=== PATIENT | female | born 1930 | race Caucasian/White ===

== ENCOUNTER 2016-06-23 19:42 | Inpatient (IN) | payer OTHER, MEDICARE ==
[~2016-06-23] VITALS: Ht 165.1 cm; Wt 82.0 kg
[~2016-06-23 19:42] MED LIST: ASCO100061 PO; CALC200T PO; CHOL100010 PO; CLC100 PO; CYAN100020 PO; DLCS PR; FLUO40CA8 PO; GLUCTAB7 PO; LTRCR45 EXT; MELO15TA4 PO; MRLP17X PO; MULTTAB58 PO; NRN100 PO; OXGN; RXC5 PO; TRAZ50TA35 PO
[2016-06-23] MEDS ORDERED: SODIUM CHLORIDE 0.9% 1000ML 1,000 ML IV ONE (19:49)
--- NOTE | 2016-06-23 20:20 | DIAGNOSTIC IMAGING REPORT ---
CHEST ONE VIEW PORTABLE CLINICAL HISTORY: Cellulitis. Fever. Sepsis. COMPARISON STUDY: Chest radiograph May 14, 2016. FINDINGS: Elevation of the right hemidiaphragm is unchanged. Left lung interstitial thickening is unchanged. No consolidation is identified. There is no evidence of pulmonary edema. There are left axillar surgical clips. Cardiomediastinal silhouette is stable. The appearance of the chest is unchanged. IMPRESSION: No acute cardiopulmonary findings. No change in appearance of the chest. Electronically signed by: Harley Lockhart M.D. 06/23/2016 8:19 PM
[2016-06-23] MEDS ORDERED: PIPERACILLIN/TAZOBACTAM 4.5 GM/100ML D5W IV STA (20:21)
[2016-06-23] MEDS ORDERED: VANCOMYCIN IV STA (20:21)
[2016-06-23] MEDS ORDERED: SODIUM CHLORIDE 0.9% IV STA (20:21)
[2016-06-23] MEDS ORDERED: ASCO500T16 PO ×2 (20:33)
[2016-06-23] MEDS ORDERED: NF656 TOP (20:33)
[2016-06-23] MEDS ORDERED: CHOL1000 PO ×2 (20:35)
[2016-06-23] MEDS ORDERED: DOCU-94 PO ×2 (20:36)
[2016-06-23] MEDS ORDERED: [UNRECOGNIZED DRUG - OTHER] PO (20:38)
[2016-06-23] MEDS ORDERED: TRAM-10 PO (20:42)
[2016-06-23] MEDS ORDERED: VANCOMYCIN INJ 2,150 MG in SODIUM CHLORIDE 0.9% 500ML 500 ML IV SCH (20:45)
[2016-06-23] MEDS ORDERED: OXYC-57 PO (20:46)
[2016-06-23] MEDS ORDERED: MOML PO ×2 (20:48)
[2016-06-23] MEDS ORDERED: POLY335019 PO ×2 (20:49)
--- NOTE | 2016-06-23 20:50 | EMERGENCY ROOM VISIT NOTE ---
History Report prepared by Daniele: Dania Reyes Under the Supervision of: Dr. Tyler Harry D.O. First contact with patient: 19:47 Chief Complaint: INFECTION Stated Complaint: CELLULITIS, LOW GRADE FEVER History of Present Illness The patient is a 85 year old female who presents to the Emergency Room via EMS from [facility] with complaints of worsening left hip pain, swelling, and erythema occurring today. She also reports a fever but is unsure of how high the temperature was. The patient was evaluated in the Emergency Room for a left hip fracture on May 14. She had left hip surgery by Dr. Sherwood on May 15. She was sent to rehab on May 17. The patient denies chest pain, shortness of breath, urinary symptoms, or any other complaints. Source of History: patient Onset: today Position: other (left hip) Quality: other (swelling and erythema) Timing: worsening Associated Symptoms: + fevers, No SOB, No chest pain, No urinary symptoms Review of Systems See HPI for pertinent positives & negatives. A total of 10 systems reviewed and were otherwise negative. Past Medical & Surgical Medical Problems: (1) Anxiety (2) Carcinoma of breast (3) Carcinoma of colon (4) Chest pain (5) Depression (6) History of chronic diarrhea (7) Lumbar spinal stenosis (8) Lymphedema (9) Neuropathy (10) Osteoporosis (11) Pernicious anemia (12) Sleep apnea Surgical Problems: (1) H/O partial mastectomy (2) History of appendectomy (3) History of cholecystectomy (4) History of partial colectomy Family History Cancer Diabetes mellitus Social History Smoking Status: Never Smoker Drug Use: none Marital Status: Housing Status: lives alone Occupation Status: retired Current/Historical Medications Scheduled Ascorbic Acid (Ascorbic Acid), 1,000 MG PO BID Calcium Carbonate-Vitamin D (Oscal 500/200 D-3), 1 TAB PO DAILY Cholecalciferol (Vitamin D3), 1,000 INTER.UNIT PO DAILY Clotrimazole (Topical) (Clotrimazole Anti-Fungal), 1 APPLN TOP BID Cyanocobalamin (Vitamin B12), 1,000 MCG PO DAILY Docusate Sodium (Colace), 200 MG PO BID Fluoxetine (Prozac), 40 MG PO QAM Gabapentin (Gabapentin), 100 MG PO BID Lidocaine (Lidoderm Patch 5%), 2 PATCH TOP ONAMOFFPM Meloxicam (Mobic), 15 MG PO DAILY Multiple Vitamin (Multivitamin), 1 TAB PO DAILY Oxygen (Oxygen), 2 LITERS NA HS Trazodone Hcl (Trazodone), 50 MG PO BID [Juice Supplement], 1 DOSE PO BID Scheduled PRN Acetaminophen (Tylenol), 650 MG PO Q6H PRN for Pain or Fever Bisacodyl (Dulcolax), 1 SUPP GA UD PRN for Constipation Magnesium Hydroxide (Milk Of Magnesia), 30 ML PO UD PRN for Constipation Oxycodone/Acetaminophen 5MG/325MG (Percocet 5MG/325MG), 1 TABLET PO Q6H PRN for Pain Polyethylene Glycol 3350 (Miralax), 17 GM PO DAILY PRN for Constipation Sodium Phosphate/Biphosphate (Fleet Enema), 1 EA GA UD PRN for Constipation Tramadol (Ultram), 50 MG PO Q6H PRN for Pain Allergies Coded Allergies: No Known Allergies (Unverified , 04/11/16) PT DENIES PREVIOUSLY PROFILED SULFA ALLERGY? Physical Exam Vital Signs Date Time Temp Pulse Resp B/P Pulse Ox O2 Delivery O2 Flow Rate FiO2 06/23/16 21:11 74 17 147/81 100 Nasal Cannula 2.0 06/23/16 19:51 98 06/23/16 19:48 36.9 90 18 145/77 98 Nasal Cannula 2.0 Physical Exam GENERAL: Patient is awake, alert, and in no acute distress. Patient is resting comfortably and showing no signs of anxiety EYES: The conjunctivae are clear. The pupils are round and reactive. EARS, NOSE, MOUTH AND THROAT: The nose is without any evidence of any deformity. Mucous membranes are moist tongue is midline NECK: The neck is nontender and supple. RESPIRATORY: Normal respiratory effort is noted there is no evidence of wheezing rhonchi or rales CARDIOVASCULAR: Regular rate and rhythm noted there no murmurs rubs or gallops normal S1 normal S2 GASTROINTESTINAL: The abdomen is soft. Bowel sounds are present in all quadrants. Abdomen is nontender MUSCULOSKELETAL/EXTREMITIES: Pain with range of motion of the left hip, no shortening or deformity appreciated, significant erythema and induration at the post-op site at the left lateral thigh, no dehiscence or drainage noted, significant tenderness at this site. SKIN: There is no obvious evidence of any rash. There are no petechiae, pallor or cyanosis noted. Pedal edema noted bilaterally. NEUROLOGIC: Patient is awake alert and oriented x3 Medical Decision & Procedures ER Provider Diagnostic Interpretation: X ray results and stated below per my interpretation and radiology interpretation. CT results per my review and radiologist interpretation: CHEST ONE VIEW PORTABLE CLINICAL HISTORY: Cellulitis. Fever. Sepsis. COMPARISON STUDY: Chest radiograph May 14, 2016. FINDINGS: Elevation of the right hemidiaphragm is unchanged. Left lung interstitial thickening is unchanged. No consolidation is identified. There is no evidence of pulmonary edema. There are left axillar surgical clips. Cardiomediastinal silhouette is stable. The appearance of the chest is unchanged. IMPRESSION: No acute cardiopulmonary findings. No change in appearance of the chest. Electronically signed by: Harley Lockhart M.D. 06/23/2016 8:[address] OF THE LEFT HIP WITHOUT CONTRAST CT DOSE: 2150.61 mGy.cm CLINICAL HISTORY: Left thigh swelling. Fever. Cellulitis. Recent left hip surgery. TECHNIQUE: Axial images of the left hip were obtained without IV contrast. Sagittal and coronal reconstructions were viewed. COMPARISON STUDY: CT of the left hip May 14, 2016 and left hip radiographs May 15, 2016. FINDINGS: There are postsurgical findings consistent with internal fixation of a proximal left femoral fracture with intramedullary klaus and interlocking screw. The intertrochanteric fracture with extension to the femoral neck is again noted. Incomplete healing is noted. Skin thickening and subcutaneous infiltration is noted. In addition, there is a 10 cm x 4.8 cm x 3.4 cm low-attenuation fluid collection within the subcutaneous tissues of the lateral left thigh. There is trace fluid more inferiorly. No additional fractures are identified. There is left colon diverticulosis without evidence for acute diverticulitis. There are no unexpected radiopaque foreign bodies. IMPRESSION: 1. Postsurgical findings consistent with internal fixation of the mildly displaced impacted intertrochanteric fracture with extension to the femoral neck. Hardware intact. 2. 10 cm x 4.8 cm x 3.4 cm low-attenuation fluid collection within the subcutaneous tissues of the lateral left thigh. This is nonspecific in the postoperative setting and could reflect a seroma, resolving hematoma or abscess. Electronically signed by: Harley Lockhart M.D. 06/23/2016 9:27 PM Laboratory Results 06/23/16 20:15 Red Blood Count 4.27, Mean Corpuscular Volume 94.1, Mean Corpuscular Hemoglobin 31.4, Mean Corpuscular Hemoglobin Concent 33.3, Mean Platelet Volume 11.2, Neutrophils (%) (Auto) 76.0, Lymphocytes (%) (Auto) 11.8, Monocytes (%) (Auto) 9.6, Eosinophils (%) (Auto) 2.2, Basophils (%) (Auto) 0.1, Neutrophils # (Auto) 10.83, Lymphocytes # (Auto) 1.68, Monocytes # (Auto) 1.37, Eosinophils # (Auto) 0.31, Basophils # (Auto) 0.02 06/23/16 20:15 Test 06/23/16 20:15 White Blood Count 14.25 K/uL (4.8-10.8) Red Blood Count 4.27 M/uL (4.2-5.4) Hemoglobin 13.4 g/dL (12.0-16.0) Hematocrit 40.2 % (37-47) Mean Corpuscular Volume 94.1 fL (80-100) Mean Corpuscular Hemoglobin 31.4 pg (25-34) Mean Corpuscular Hemoglobin Concent 33.3 g/dl (32-36) Platelet Count 361 K/uL (130-400) Mean Platelet Volume 11.2 fL (7.4-10.4) Neutrophils (%) (Auto) 76.0 % Lymphocytes (%) (Auto) 11.8 % Monocytes (%) (Auto) 9.6 % Eosinophils (%) (Auto) 2.2 % Basophils (%) (Auto) 0.1 % Neutrophils # (Auto) 10.83 K/uL (1.4-6.5) Lymphocytes # (Auto) 1.68 K/uL (1.2-3.4) Monocytes # (Auto) 1.37 K/uL (0.11-0.59) Eosinophils # (Auto) 0.31 K/uL (0-0.5) Basophils # (Auto) 0.02 K/uL (0-0.2) RDW Standard Deviation 45.8 fL (36.4-46.3) RDW Coefficient of Variation 13.4 % (11.5-14.5) Immature Granulocyte % (Auto) 0.3 % Immature Granulocyte # (Auto) 0.04 K/uL (0.00-0.02) Erythrocyte Sedimentation Rate 43 mm/hr (0-21) Prothrombin Time 11.0 SECONDS (9.0-12.0) Prothromb Time International Ratio 1.0 (0.9-1.1) Activated Partial Thromboplast Time 28.5 SECONDS (21.0-31.0) Partial Thromboplastin Ratio 1.1 Anion Gap 7.0 mmol/L (3-11) Est Creatinine Clear Calc Drug Dose 78.1 ml/min Estimated GFR () 97.9 Estimated GFR (Non- 84.4 BUN/Creatinine Ratio 24.1 (10-20) Calcium Level 8.8 mg/dl (8.5-10.1) Magnesium Level 2.0 mg/dl (1.8-2.4) Total Bilirubin 0.3 mg/dl (0.2-1) Aspartate Amino Transf (AST/SGOT) 29 U/L (15-37) Alanine Aminotransferase (ALT/SGPT) 35 U/L (12-78) Alkaline Phosphatase 147 U/L (45-117) C-Reactive Protein 3.37 mg/dl (0-0.29) Total Protein 6.3 gm/dl (6.4-8.2) Albumin 2.7 gm/dl (3.4-5.0) Globulin 3.6 gm/dl (2.5-4.0) Albumin/Globulin Ratio 0.8 (0.9-2) Laboratory results per my review. Medications Administered Medications (Trade) Dose Ordered Sig/Doug Route Start Time Stop Time Status Last Admin Dose Admin Sodium Chloride (Nss 1000ml) 1,000 ml @ 999 mls/hr Q1H1M ONCE IV 06/23/16 19:49 06/23/16 20:49 DC 06/23/16 20:43 999 MLS/HR Piperacillin Sod/ Tazobactam Sod 4.5 gm 4.5 gm NOW STAT IV 06/23/16 20:21 06/23/16 20:23 DC 06/23/16 20:43 4.5 GM Vancomycin HCl/ Sodium Chloride (Vancomycin Inj/ Nss 500ml) 543 ml @ 125 mls/hr TODAY@2044 IV 06/23/16 20:45 06/23/16 23:59 06/23/16 21:25 125 MLS/HR Morphine Sulfate (MoRPHine SULFATE INJ) 4 mg Q15M PRN IV 06/23/16 21:45 07/07/16 21:44 06/23/16 21:39 4 MG Ondansetron HCl (Zofran Inj) 4 mg NOW STAT IV 06/23/16 21:31 06/23/16 21:32 DC 06/23/16 21:39 4 MG ED Course 1946: The patient was evaluated in room B09. A complete history and physical examination were performed. 1948: Sodium Chloride 1000 ml @ 999 mls/hr IV 2020: Zosyn IV 4.5 gm IV 2044: Vancomycin HCl 2150 mg/Sodium Chloride 543 ml @ 125 mls/hr IV 2115: Upon reevaluation, the patient is resting comfortably. I discussed results and treatment plan with her. She verbalizes agreement and understanding. I spoke with Dr. Monterroso of the [facility]. The patient will be evaluated for further management and care. Medical Decision Differential diagnosis: Etiologies such as cellulitis, abscess, MRSA infection, DVT, necrotizing fasciitis, dermatitis, drug eruption, as well as others were entertained.. Nursing notes reviewed. The patient is an 85-year-old female who presented to the emergency department for an evaluation of left thigh pain and swelling. The patient is a history of a recent left hip replacement. She started having pain and redness recently. There appears to be very significant cellulitis at the post operative site. On CAT scan there was also a small fluid collection which could be consistent with abscess. The patient was started on IV antibiotics in emergency department. She was reevaluated multiple times. She was also treated with IV fluids IV pain medicine and IV antiemetics. I discussed his case with the on-call [facility] Hospitalist. He was familiar with the patient from the snf. He is agreed to evaluate the patient in emergency apartment for further management and disposition. Consults Time Called: 2109 Consulting Physician[facility] Returned Call: [address] Monterroso of the [facility]. Impression Primary Impression: Postoperative wound infection Additional Impression: Cellulitis of left hip Scribe Attestation The scribe's documentation has been prepared under my direction and personally reviewed by me in its entirety. I confirm that the note above accurately reflects all work, treatment, procedures, and medical decision making performed by me. Departure Information Dispostion Being Evaluated By Hospitalist Referrals Chinyere Padron M.D. (PCP) Patient Instructions A Signature Page, My [facility]
[2016-06-23] MEDS ORDERED: CLOT1CRE3 TOP (20:52)
[2016-06-23] MEDS ORDERED: SODIENE PR ×2 (20:52)
[2016-06-23] MEDS ORDERED: CLOTCRE5 TOP ×2 (20:54)
[2016-06-23 20:55] LABS: BASO % 0.1 %; BASO ABS # 0.02 K/uL (0-0.2); COMPLETE YES; EOS % 2.2 %; HEMATOCRIT 40.2 % (37-47); IG% 0.3 %; LYMPH % 11.8 %; LYMPH ABS # 1.68 K/uL (1.2-3.4); MEAN CELL VOLUME 94.1 fL (80-100); MEAN CORPUSCULAR HEMOGLOBIN 31.4 pg (25-34); MEAN CORPUSCULAR HGB CONC 33.3 g/dl (32-36); MEAN PLATELET VOLUME 11.2 fL (7.4-10.4); MONO % 9.6 %; PLATELET COUNT 361 K/uL (130-400); RED BLOOD COUNT 4.27 M/uL (4.2-5.4); WHITE BLOOD COUNT 14.25 K/uL (4.8-10.8)
[2016-06-23] MEDS ORDERED: ACET-1311 PO ×2 (21:00)
[2016-06-23] MEDS ORDERED: BISA10SU3 PR ×2 (21:02)
[2016-06-23 21:07] LABS: PARTIAL THROMBOPLASTIN RATIO 1.1
[2016-06-23 21:15] LABS: BUN/CREATININE RATIO 24.1 (10-20); C-REACTIVE PROTEIN 3.37 mg/dl (0-0.29); CALCIUM 8.8 mg/dl (8.5-10.1); CREATININE 0.56 mg/dl (0.60-1.20); POTASSIUM 3.4 mmol/L (3.5-5.1)
[2016-06-23 21:17] LABS: ALB/GLOB RATIO 0.8 (0.9-2)
--- NOTE | 2016-06-23 21:29 | DIAGNOSTIC IMAGING REPORT ---
CT OF THE LEFT HIP WITHOUT CONTRAST CT DOSE: 2150.61 mGy.cm CLINICAL HISTORY: Left thigh swelling. Fever. Cellulitis. Recent left hip surgery. TECHNIQUE: Axial images of the left hip were obtained without IV contrast. Sagittal and coronal reconstructions were viewed. COMPARISON STUDY: CT of the left hip May 14, 2016 and left hip radiographs May 15, 2016. FINDINGS: There are postsurgical findings consistent with internal fixation of a proximal left femoral fracture with intramedullary klaus and interlocking screw. The intertrochanteric fracture with extension to the femoral neck is again noted. Incomplete healing is noted. Skin thickening and subcutaneous infiltration is noted. In addition, there is a 10 cm x 4.8 cm x 3.4 cm low-attenuation fluid collection within the subcutaneous tissues of the lateral left thigh. There is trace fluid more inferiorly. No additional fractures are identified. There is left colon diverticulosis without evidence for acute diverticulitis. There are no unexpected radiopaque foreign bodies. IMPRESSION: 1. Postsurgical findings consistent with internal fixation of the mildly displaced impacted intertrochanteric fracture with extension to the femoral neck. Hardware intact. 2. 10 cm x 4.8 cm x 3.4 cm low-attenuation fluid collection within the subcutaneous tissues of the lateral left thigh. This is nonspecific in the postoperative setting and could reflect a seroma, resolving hematoma or abscess. Electronically signed by: Harley Lockhart M.D. 06/23/2016 9:27 PM
[2016-06-23] MEDS ORDERED: MAGNESIUM HYDROXIDE SUSP 30 ML UDC PO PRN (21:30)
[2016-06-23] MEDS ORDERED: BISACODYL 10 MG SUPP PR PRN (21:30)
[2016-06-23] MEDS ORDERED: ZOLPIDEM TARTRATE 5 MG TAB PO PRN (21:30)
[2016-06-23] MEDS ORDERED: SOD PHOSPHATE/SOD BIPHOSPHATE ENEMA 132 ML BTL PR PRN (21:30)
[2016-06-23] MEDS ORDERED: ACETAMINOPHEN 325 MG TAB PO PRN ×2 (21:30)
[2016-06-23] MEDS ORDERED: POLYETHYLENE (MIRALAX) 17 GM PACK PO PRN (21:30)
[2016-06-23] MEDS ORDERED: ONDANSETRON INJ 2 MG/ML 2 ML VIAL IV STA (21:31)
[2016-06-23] MEDS ORDERED: VANCOMYCIN CONSULT ACTIVE PRN (21:40)
[2016-06-23] MEDS ORDERED: PIPERACILL/TAZOBAC CONSULT ACTIVE PRN (21:45)
[2016-06-23] MEDS ORDERED: MoRPHine SULFATE 4 MG/ML 1 ML CARP\\VIAL IV PRN (21:45)
[2016-06-23 22:40] VITALS: BP 149/72; PULSE 75; TEMP 36.7; O2SAT 95
--- NOTE | 2016-06-23 23:34 | Pharmacy Progress Note ---
Pharmacy Antibiotic Consult Date of Service: Jun 23, 2016. Pharmacy Dosing Scope Pharmacy is consulted to initiate VANCOMYCIN AND ZOSYN IV dosing therapy, order appropriate labs and adjust drug dose/frequency. Subjective The patient is a 85 year old female admitted on Jun 23, 2016 at 21:46. Objective Height (Feet): 5 Height (Inches): 5.00 Weight (Kilograms): 86.000 Lab Results (24hrs): Laboratory Tests Test 06/23/16 20:15 BUN/Creatinine Ratio 24.1 Blood Urea Nitrogen 14 mg/dl Creatinine 0.56 mg/dl White Blood Count 14.25 K/uL Red Blood Count 4.27 M/uL Hemoglobin 13.4 g/dL Hematocrit 40.2 % Mean Corpuscular Volume 94.1 fL Mean Corpuscular Hemoglobin 31.4 pg Mean Corpuscular Hemoglobin Concent 33.3 g/dl Platelet Count 361 K/uL Mean Platelet Volume 11.2 fL Neutrophils (%) (Auto) 76.0 % Lymphocytes (%) (Auto) 11.8 % Monocytes (%) (Auto) 9.6 % Eosinophils (%) (Auto) 2.2 % Basophils (%) (Auto) 0.1 % Neutrophils # (Auto) 10.83 K/uL Lymphocytes # (Auto) 1.68 K/uL Monocytes # (Auto) 1.37 K/uL Eosinophils # (Auto) 0.31 K/uL Basophils # (Auto) 0.02 K/uL Assessment & Plan Assessment: * questionable cellulitis * recent hospitalization/rehab stay - increase risk for healthcare associated pathogens Plan: Begin vancomycin and piperacillin/tazobactam per pharmacy consult Vancomycin * Loading dose: 2150 mg IV X 1 dose (given in ED) * Maintenance dose: 1000 mg IV q12H * Estimated kinetics: T1/2~11.6 hours * Goal trough: for cellulitis ~15mcg/mL * Trough level 06/25 @ 22:00 Piperacillin/tazobactam * Loading dose: 4.5g IV x1 dose given in ED * Maintenance dose: 3.375g IV q8H (infused over 4 hours per dose) * no dose adj needed for CrCl above 20mL/min Pharmacy will continue to follow and will adjust dose/frequency as necessary. Thank you
[2016-06-24 00:15] VITALS: BP 149/72; PULSE 75; TEMP 36.7; Ht 165.1 cm; Wt 82.0 kg
[2016-06-24] MEDS: NSS + 20MEQ KCL 1000ML 1,000 ML IV SCH ×3 (00:41→20:24)
[2016-06-24] MEDS: TRAMADOL HCL 50 MG TAB PO PRN (00:41)
[2016-06-24] MEDS: PIPERACILL/TAZOBAC IV 3.375 GM in DEXTROSE 5% 100ML 100 ML IV SCH ×3 (02:34→18:12)
--- NOTE | 2016-06-24 05:15 | History and Physical ---
History & Physical Date & Time of Service: Jun 24, 2016 at 05:06 Chief Complaint: Cellulitis Of Left Hip, Postoperative Wound Infect Primary Care Physician: Rehab,[facility] Nursing and History of Present Illness Source: patient The patient is an 85-year-old female resident of [facility], who was noted to have a cellulitis over the left hip which she recently undergone a left total hip arthroplasty on May [address] Sherwood. She was referred to the emergency department for assessment. The patient overall did not have any significant complaints. She's had no fevers or chills , worsening leg pain or numbness. Past Medical/Surgical History Medical Problems: (1) Anxiety Status: Chronic (2) Carcinoma of breast Permanent Comment: s/p partial mastectomy Status: Chronic (3) Carcinoma of colon Permanent Comment: s/p partial colectomy Status: Chronic (4) Depression Status: Chronic (5) History of chronic diarrhea Status: Chronic (6) Lumbar spinal stenosis Status: Chronic (7) Lymphedema Permanent Comment: left arm Status: Chronic (8) Neuropathy Status: Chronic (9) Osteoporosis Status: Chronic (10) Pernicious anemia Status: Chronic (11) Sleep apnea Permanent Comment: On CPAP + O2 Status: Chronic Surgical Problems: (1) H/O partial mastectomy Status: Chronic (2) History of appendectomy Status: Chronic (3) History of cholecystectomy Status: Chronic (4) History of partial colectomy Permanent Comment: 1976 colon CA Status: Chronic Family History Cancer Diabetes mellitus Social History Smoking Status: Never Smoker Smokeless Tobacco Use: No Alcohol Use: none Drug Use: none Marital Status: Housing status: lives alone, [facility] Occupational Status: retired Immunizations History of Influenza Vaccine: Yes History of Tetanus Vaccine?: Yes Tetanus Immunization Date: Jan 18, 2006 History of Pneumococcal: Yes Pneumococcal Date: Jan 18, 2005 History of Hepatitis B Vaccine: Unknown Multi-Drug Resistant Organisms History of MDRO: No Allergies Coded Allergies: No Known Allergies (Unverified , 04/11/16) PT DENIES PREVIOUSLY PROFILED SULFA ALLERGY? Home Medications Scheduled Ascorbic Acid (Ascorbic Acid), 1,000 MG PO BID Calcium Carbonate-Vitamin D (Oscal 500/200 D-3), 1 TAB PO DAILY Cholecalciferol (Vitamin D3), 1,000 INTER.UNIT PO DAILY Clotrimazole (Topical) (Clotrimazole Anti-Fungal), 1 APPLN TOP BID Cyanocobalamin (Vitamin B12), 1,000 MCG PO DAILY Docusate Sodium (Colace), 200 MG PO BID Fluoxetine (Prozac), 40 MG PO QAM Gabapentin (Gabapentin), 100 MG PO BID Lidocaine (Lidoderm Patch 5%), 2 PATCH TOP ONAMOFFPM Meloxicam (Mobic), 15 MG PO DAILY Multiple Vitamin (Multivitamin), 1 TAB PO DAILY Oxygen (Oxygen), 2 LITERS NA HS Trazodone Hcl (Trazodone), 50 MG PO BID [Juice Supplement], 1 DOSE PO BID Scheduled PRN Acetaminophen (Tylenol), 650 MG PO Q6H PRN for Pain or Fever Bisacodyl (Dulcolax), 1 SUPP RI UD PRN for Constipation Magnesium Hydroxide (Milk Of Magnesia), 30 ML PO UD PRN for Constipation Oxycodone/Acetaminophen 5MG/325MG (Percocet 5MG/325MG), 1 TABLET PO Q6H PRN for Pain Polyethylene Glycol 3350 (Miralax), 17 GM PO DAILY PRN for Constipation Sodium Phosphate/Biphosphate (Fleet Enema), 1 EA RI UD PRN for Constipation Tramadol (Ultram), 50 MG PO Q6H PRN for Pain Review of Systems The patient denies chest pain, palpitations, shortness of breath, cough, vision change, hearing change, sore throat, fevers, chills, sweats, weight change, fatigue, nausea, vomiting, abdominal pain, pelvic pain, blood in urine or stool , dysuria, urinary frequency or urgency, lightheadedness, dizziness, headache, memory loss, rash, abnormal bruising or bleeding, generalized weakness, numbness or tingling in arms or legs, arthralgias or myalgias, back or neck pain , night sweats, or allergy symptoms. The review of systems is otherwise negative other than for that already noted above, and at least 10 systems have been reviewed. Physical Exam Vital Signs Date Time Temp Pulse Resp B/P Pulse Ox O2 Delivery O2 Flow Rate FiO2 06/24/16 00:15 Nasal Cannula 2.0 CPAP 06/23/16 22:40 36.7 75 18 149/72 95 Nasal Cannula 2.0 06/23/16 21:11 74 17 147/81 100 Nasal Cannula 2.0 06/23/16 19:51 98 06/23/16 19:48 36.9 90 18 145/77 98 Nasal Cannula 2.0 The patient is awake, well-developed and adequately nourished, alert and oriented 3, normocephalic and atraumatic, lying in bed and in no acute distress. HEENT--PERRL, EOMI, mucous membranes moist, and oropharynx normal. Neck--supple, no JVD or bruits, thyroid normal, trachea midline, no adenopathy. Heart--normal S1 and S2, no extra beats, no murmurs, rubs or gallops. Lungs--clear bilaterally with good air movement, no respiratory distress, no accessory muscle use. Abdomen--normal bowel sounds and soft, nontender and nondistended, no hernias or masses, no organomegaly. Extremities--no cyanosis, clubbing. There is trace pitting edema left lower extremity. There are good distal pulses b/l. Dermatologic--over left hip, incision looks well-healed. There is diffuse erythema involving left hip fdc on the left buttock and fdc toward left groin area. Neurologic--cranial nerves II through XII grossly intact. Psychiatric--normal affect. Diagnostics Laboratory Results Results Past 24 Hours Test 06/23/16 20:15 06/24/16 04:44 Range/Units White Blood Count 14.25 4.8-10.8 K/uL Red Blood Count 4.27 4.2-5.4 M/uL Hemoglobin 13.4 12.0-16.0 g/dL Hematocrit 40.2 37-47 % Mean Corpuscular Volume 94.1 80-100 fL Mean Corpuscular Hemoglobin 31.4 25-34 pg Mean Corpuscular Hemoglobin Concent 33.3 32-36 g/dl Platelet Count 361 130-400 K/uL Mean Platelet Volume 11.2 7.4-10.4 fL Neutrophils (%) (Auto) 76.0 % Lymphocytes (%) (Auto) 11.8 % Monocytes (%) (Auto) 9.6 % Eosinophils (%) (Auto) 2.2 % Basophils (%) (Auto) 0.1 % Neutrophils # (Auto) 10.83 1.4-6.5 K/uL Lymphocytes # (Auto) 1.68 1.2-3.4 K/uL Monocytes # (Auto) 1.37 0.11-0.59 K/uL Eosinophils # (Auto) 0.31 0-0.5 K/uL Basophils # (Auto) 0.02 0-0.2 K/uL RDW Standard Deviation 45.8 36.4-46.3 fL RDW Coefficient of Variation 13.4 11.5-14.5 % Immature Granulocyte % (Auto) 0.3 % Immature Granulocyte # (Auto) 0.04 0.00-0.02 K/uL Erythrocyte Sedimentation Rate 43 0-21 mm/hr Prothrombin Time 11.0 9.0-12.0 SECONDS Prothromb Time International Ratio 1.0 0.9-1.1 Activated Partial Thromboplast Time 28.5 21.0-31.0 SECONDS Partial Thromboplastin Ratio 1.1 Sodium Level 142 136-145 mmol/L Potassium Level 3.4 3.5-5.1 mmol/L Chloride Level 103 98-107 mmol/L Carbon Dioxide Level 32 21-32 mmol/L Anion Gap 7.0 3-11 mmol/L Blood Urea Nitrogen 14 7-18 mg/dl Creatinine 0.56 0.60-1.20 mg/dl Est Creatinine Clear Calc Drug Dose 78.1 ml/min Estimated GFR () 97.9 Estimated GFR (Non- 84.4 BUN/Creatinine Ratio 24.1 10-20 Random Glucose 116 70-99 mg/dl Calcium Level 8.8 8.5-10.1 mg/dl Magnesium Level 2.0 1.8-2.4 mg/dl Total Bilirubin 0.3 0.2-1 mg/dl Aspartate Amino Transf (AST/SGOT) 29 15-37 U/L Alanine Aminotransferase (ALT/SGPT) 35 12-78 U/L Alkaline Phosphatase 147 45-117 U/L C-Reactive Protein 3.37 0-0.29 mg/dl Total Protein 6.3 6.4-8.2 gm/dl Albumin 2.7 3.4-5.0 gm/dl Globulin 3.6 2.5-4.0 gm/dl Albumin/Globulin Ratio 0.8 0.9-2 Microbiology Results 06/23/16 Blood Culture, Received Pending 06/23/16 Blood Culture, Received Pending 06/24/16 MRSA DNA Surveillance Screen - Final, Complete Specimen Negative for MRSA by DNA Probe Diagnostic Radiology Patient Name: MIKI FORBES Unit Number: [id number] Dictated: 06/23/162016 Transcribed: 06/23/162016 JA Printed Date/Time: [~ rep prt dt]/[~ rep prt tm] [~ rep ct labl] - [~ rep ct ivnm] [facility] [place] [address] Dictated: 06/23/162016 Transcribed: 06/23/162016 JA Printed Date/Time: [~ rep prt dt]/[~ rep prt tm] [~ rep ct labl] - [~ rep ct ivnm] CHEST ONE VIEW PORTABLE CLINICAL HISTORY: Cellulitis. Fever. Sepsis. COMPARISON STUDY: Chest radiograph May 14, 2016. FINDINGS: Elevation of the right hemidiaphragm is unchanged. Left lung interstitial thickening is unchanged. No consolidation is identified. There is no evidence of pulmonary edema. There are left axillar surgical clips. Cardiomediastinal silhouette is stable. The appearance of the chest is unchanged. IMPRESSION: No acute cardiopulmonary findings. No change in appearance of the chest. Electronically signed by: Harley Lockhart M.D. 06/23/2016 8:19 PM The status of this report is Signed. Draft = Not yet reviewed or approved by Radiologist. Signed = Reviewed and approved by Radiologist. <AttendingPhy></AttendingPhy> <FamilyPhy>[facility]</FamilyPhy > <PrimaryPhy>[facility]</PrimaryPhy> <UnitNumber>[id number]</ UnitNumber> <VisitNumber>[id number]</VisitNumber> <PatientName>MIKI FORBES</PatientName> <DateOfBirth>1930</DateOfBirth> <Location> C.EDB</Location> <ServiceDate>06/23/16</ServiceDate> <MNE>ESINDI</MNE> < OrderingPhy>Tyler Harry D.O.</OrderingPhy> <OrderingPhyMNE>f rep ord dr paul</OrderingPhyMNE> <DictatingPhyMNE>f rep dict dr paul</DictatingPhyMNE> < CCListMNE>f rep ct mne</CCListMNE> <AdmittingPhyMNE>f pt admit dr paul</ AdmittingPhyMNE> <AttendingPhyMNE>f pt attend dr paul</AttendingPhyMNE> <ConsultingPhyMNE>f pt consult dr paul</ConsultingPhyMNE> <FamilyPhyMNE>f pt fam dr paul</FamilyPhyMNE> <OtherPhyMNE>f pt other dr paul</OtherPhyMNE> < PrimaryPhyMNE>f pt prim care dr paul</PrimaryPhyMNE> <ReferringPhyMNE>f pt referring dr paul</ReferringPhyMNE> Patient Name: MIKI FORBES Unit Number: [id number] Dictated: 06/23/162116 Transcribed: 06/23/162116 JA Printed Date/Time: [~ rep prt dt]/[~ rep prt tm] [~ rep ct labl] - [~ rep ct ivnm] [facility] [place] [address] Dictated: 06/23/162116 Transcribed: 06/23/162116 JA Printed Date/Time: [~ rep prt dt]/[~ rep prt tm] [~ rep ct labl] - [~ rep ct ivnm] CT OF THE LEFT HIP WITHOUT CONTRAST CT DOSE: 2150.61 mGy.cm CLINICAL HISTORY: Left thigh swelling. Fever. Cellulitis. Recent left hip surgery. TECHNIQUE: Axial images of the left hip were obtained without IV contrast. Sagittal and coronal reconstructions were viewed. COMPARISON STUDY: CT of the left hip May 14, 2016 and left hip radiographs May 15, 2016. FINDINGS: There are postsurgical findings consistent with internal fixation of a proximal left femoral fracture with intramedullary klaus and interlocking screw. The intertrochanteric fracture with extension to the femoral neck is again noted. Incomplete healing is noted. Skin thickening and subcutaneous infiltration is noted. In addition, there is a 10 cm x 4.8 cm x 3.4 cm low-attenuation fluid collection within the subcutaneous tissues of the lateral left thigh. There is trace fluid more inferiorly. No additional fractures are identified. There is left colon diverticulosis without evidence for acute diverticulitis. There are no unexpected radiopaque foreign bodies. IMPRESSION: 1. Postsurgical findings consistent with internal fixation of the mildly displaced impacted intertrochanteric fracture with extension to the femoral neck. Hardware intact. 2. 10 cm x 4.8 cm x 3.4 cm low-attenuation fluid collection within the subcutaneous tissues of the lateral left thigh. This is nonspecific in the postoperative setting and could reflect a seroma, resolving hematoma or abscess. Electronically signed by: Harley Lockhart M.D. 06/23/2016 9:27 PM The status of this report is Signed. Draft = Not yet reviewed or approved by Radiologist. Signed = Reviewed and approved by Radiologist. <AttendingPhy></AttendingPhy> <FamilyPhy>[facility]</FamilyPhy > <PrimaryPhy>[facility]</PrimaryPhy> <UnitNumber>[id number]</ UnitNumber> <VisitNumber>[id number]</VisitNumber> <PatientName>MIKI FORBES</PatientName> <DateOfBirth>1930</DateOfBirth> <Location> C.EDB</Location> <ServiceDate>06/23/16</ServiceDate> <MNE>ESINDI</MNE> < OrderingPhy>Tyler Harry D.O.</OrderingPhy> <OrderingPhyMNE>f rep ord dr paul</OrderingPhyMNE> <DictatingPhyMNE>f rep dict dr paul</DictatingPhyMNE> < CCListMNE>f rep ct beverly</CCListMNE> <AdmittingPhyMNE>f pt admit dr paul</ AdmittingPhyMNE> <AttendingPhyMNE>f pt attend dr paul</AttendingPhyMNE> <ConsultingPhyMNE>f pt consult dr paul</ConsultingPhyMNE> <FamilyPhyMNE>f pt fam dr paul</FamilyPhyMNE> <OtherPhyMNE>f pt other dr paul</OtherPhyMNE> < PrimaryPhyMNE>f pt prim care dr paul</PrimaryPhyMNE> <ReferringPhyMNE>f pt referring dr paul</ReferringPhyMNE> Impression Assessment and Plan Cellulitis of left hip, status post left total hip arthroplasty on May 15, with CT showing pocket of fluid with suggestion of a seroma, resolving hematoma or abscess. The patient be admitted to the medical surgical floor,. She'll be placed on vancomycin IV per renal dosing, and Zosyn 3.375 mg IV every 8 hours. We'll consult orthopedic surgeon Dr. Sherwood. Anxiety/depression continue fluoxetine 40 mg by mouth every morning, gabapentin 100 mg by mouth twice a day, trazodone 50 mg by mouth twice a day. Nutraceuticals--we'll continue all OTC supplements as on medication list. Level of Care Med/Surg Advanced Directives Existing Advance Directive: No Existing Living Will: No Existing Power of [employer] Programs Director: No Resuscitation Status FULL RESUSCITATION VTE Prophylaxis VTE Risk Assessment Done? Y/N: Yes Risk Level: Moderate Given or contraindicated: SCD's Social Service Consult Lives in Longterm
[2016-06-24 06:00] LABS: URINE APPEARANCE CLOUDY (CLEAR); URINE BILIRUBIN NEG (NEG); URINE COLOR DK YELLOW; URINE EPITHELIAL CELL AUTO >30 /lpf (0-5); URINE NITRITE NEG (NEG); URINE SPECIFIC GRAVITY 1.037 (1.000-1.030); UROBILINOGEN NEG (NEG); ZZUR CULT IF INDIC CLEAN CATCH YES
[2016-06-24 06:02] LABS: MANUAL MICROSCOPIC REQUIRED? NO; REVIEW REQ? NO
[2016-06-24 07:04] VITALS: BP 127/72; PULSE 74; TEMP 36.8; O2SAT 97
[2016-06-24 07:38] LABS: BASO % 0.3 %; BASO ABS # 0.03 K/uL (0-0.2); COMPLETE YES; IG% 0.3 %; LYMPH % 10.8 %; LYMPH ABS # 1.15 K/uL (1.2-3.4); MEAN CORPUSCULAR HEMOGLOBIN 31.1 pg (25-34); MEAN CORPUSCULAR HGB CONC 32.4 g/dl (32-36); MEAN PLATELET VOLUME 11.3 fL (7.4-10.4); MONO % 11.4 %; NEUT % 74.2 %; PLATELET COUNT 330 K/uL (130-400); RED BLOOD COUNT 3.96 M/uL (4.2-5.4); WHITE BLOOD COUNT 10.65 K/uL (4.8-10.8)
[2016-06-24 08:10] LABS: BUN/CREATININE RATIO 15.9 (10-20); CALCIUM 8.2 mg/dl (8.5-10.1); CREATININE 0.71 mg/dl (0.60-1.20); MAGNESIUM 1.9 mg/dl (1.8-2.4); POTASSIUM 3.7 mmol/L (3.5-5.1)
[2016-06-24] MEDS: MULTIVITAMIN TAB PO SCH (08:55)
[2016-06-24] MEDS: GABAPENTIN 100 MG CAP PO SCH ×2 (08:56→20:31)
[2016-06-24] MEDS: CYANOCOBALAMIN 100 MCG TAB (VIT B-12) PO SCH (08:57)
[2016-06-24] MEDS: FLUOXETINE HCL 20 MG CAP PO SCH (08:57)
[2016-06-24] MEDS: ASCORBIC ACID 500 MG TAB PO SCH ×2 (08:58→20:29)
[2016-06-24] MEDS: CALCIUM 600MG + VIT D 400 IU TAB PO SCH (08:58)
[2016-06-24] MEDS: DOCUSATE SODIUM 100 MG CAP PO SCH ×2 (08:58→20:30)
[2016-06-24] MEDS: TRAZODONE HCL 50 MG TAB PO SCH ×2 (08:58→20:29)
[2016-06-24] MEDS: CHOLECALCIFEROL 1000 INTER.UNIT TAB PO SCH (08:59)
[2016-06-24] MEDS: CLOTRIMAZOLE 1% CR 15 GM TUBE EXT SCH ×2 (09:02→20:29)
[2016-06-24] MEDS: VANCOMYCIN INJ 1,000 MG in SODIUM CHLORIDE 0.9% 250ML 250 ML IV SCH ×2 (09:21→22:09)
--- NOTE | 2016-06-24 12:37 | Family Medicine Progress Note ---
Progress Note Date of Service Jun 24, 2016. Subjective Pt evaluation today including: conversation w/ patient, physical exam, chart review, lab review, review of studies, review of inpatient medication list Pain: left calf pain Voiding: no voiding problems Admission overnight for left hip cellulitis over surgical scar for IM Nail on May 15 (Dr Sherwood) after hip fracture. No acute events overnight. She feels "lousy' this morning but cannot remember the last time she felt well. Left sided calf pain. Denies shortness of breath, chest pain. All Other Systems: Reviewed and Negative Medications Current Inpatient Medications Medications (Trade) Dose Ordered Sig/Doug Route Start Time Stop Time Status Last Admin Dose Admin Acetaminophen (Tylenol Tab) 650 mg Q4H PRN PO 06/23/16 21:30 07/23/16 21:29 Zolpidem Tartrate (Ambien Tab) 5 mg HSZ PRN PO 06/23/16 21:30 07/23/16 21:29 Ascorbic Acid (Vitamin C Tab) 1,000 mg BID PO 06/24/16 09:00 07/24/16 08:59 Bisacodyl (Dulcolax Supp) 10 mg UD PRN VT 06/23/16 21:30 07/23/16 21:29 Cholecalciferol (Vitamin D Tab) 1,000 inter.unit DAILY PO 06/24/16 09:00 07/24/16 08:59 Clotrimazole (Lotrimin 1% Crm) 1 appln BID EXT 06/24/16 09:00 07/24/16 08:59 06/24/16 09:02 1 APPLN Docusate Sodium (coLACE CAP) 200 mg BID PO 06/24/16 09:00 07/24/16 08:59 Fluoxetine HCl (Prozac Cap) 40 mg QAM PO 06/24/16 09:00 07/24/16 08:59 06/24/16 08:57 40 MG Gabapentin (Neurontin Cap) 100 mg BID PO 06/24/16 09:00 07/24/16 08:59 06/24/16 08:56 100 MG Magnesium Hydroxide (Milk Of Magnesia Susp) 30 ml UD PRN PO 06/23/16 21:30 07/23/16 21:29 Multivitamins (Multivitamin Tab) 1 tab DAILY PO 06/24/16 09:00 07/24/16 08:59 Oxycodone/ Acetaminophen (Percocet 5-325MG Tab) 1 tab Q6H PRN PO 06/23/16 21:30 07/07/16 21:29 Sodium Biphosphate/ Sodium Phosphate (Fleet Enema) 133 ml UD PRN VT 06/23/16 21:30 07/23/16 21:29 Tramadol HCl (Ultram Tab) 50 mg Q6H PRN PO 06/23/16 21:30 07/23/16 21:29 06/24/16 00:41 50 MG Trazodone HCl (Desyrel Tab) 50 mg BID PO 06/24/16 09:00 07/24/16 08:59 06/24/16 08:58 50 MG Calcium/Vitamin D (Caltrate Plus Tab) 1 tab DAILY PO 06/24/16 09:00 07/24/16 08:59 Cyanocobalamin (Vitamin B-12 Tab) 1,000 mcg QAM PO 06/24/16 09:00 07/24/16 08:59 Polyethylene (Miralax Powder Packet) 17 gm DAILY PRN PO 06/23/16 21:30 07/23/16 21:29 Ondansetron HCl 4 mg 4 mg Q6H PRN IV 06/23/16 21:30 07/23/16 21:29 Potassium Chloride/Sodium Chloride (Nss + 20meq KCl 1000ml) 1,000 ml @ 100 mls/hr Q10H IV 06/24/16 00:00 07/24/16 00:00 06/24/16 09:12 100 MLS/HR Vancomycin HCl 1 ea 1 ea UD PRN N/A 06/23/16 21:40 07/23/16 21:39 Piperacillin Sod/ Tazobactam Sod/ Dextrose (Zosyn Iv/D5 100ml) 115 ml @ 28.75 mls/ hr Q8H IV 06/24/16 02:00 07/04/16 01:59 06/24/16 09:21 28.75 MLS/HR Piperacillin Sod/ Tazobactam Sod 1 ea 1 ea UD PRN N/A 06/23/16 21:45 07/23/16 21:44 Vancomycin HCl/ Sodium Chloride (Vancomycin Inj/ Nss 250ml) 270 ml @ 125 mls/hr Q12H IV 06/24/16 10:00 07/03/16 20:59 06/24/16 09:21 125 MLS/HR Objective Vital Signs Date Time Temp Pulse Resp B/P Pulse Ox O2 Delivery O2 Flow Rate FiO2 06/24/16 08:54 Nasal Cannula 2.0 06/24/16 07:04 36.8 74 16 127/72 97 Nasal Cannula 2.0 06/24/16 00:15 Nasal Cannula 2.0 CPAP 06/24/16 00:15 36.7 75 18 149/72 Nasal Cannula 2.0 06/23/16 22:40 36.7 75 18 149/72 95 Nasal Cannula 2.0 06/23/16 21:11 74 17 147/81 100 Nasal Cannula 2.0 06/23/16 19:51 98 06/23/16 19:48 36.9 90 18 145/77 98 Nasal Cannula 2.0 Physical Exam General Appearance: no apparent distress, + obese Eyes: normal inspection (pupils equal) ENT: normal ENT inspection (externally) Neck: supple, no JVD Respiratory/Chest: chest non-tender, lungs clear, normal breath sounds, no respiratory distress, no accessory muscle use Cardiovascular: regular rate, rhythm, no murmur Abdomen: normal bowel sounds, non tender, soft Extremities: no pedal edema, + calf tenderness (with slight swelling of left calf) Neurologic/Psychiatric: no motor/sensory deficits (NV intact distal to hip fracture) Skin: normal color, warm/dry, no rash Laboratory Results 06/24/16 06:50 Red Blood Count 3.96, Mean Corpuscular Volume 96.0, Mean Corpuscular Hemoglobin 31.1, Mean Corpuscular Hemoglobin Concent 32.4, Mean Platelet Volume 11.3, Neutrophils (%) (Auto) 74.2, Lymphocytes (%) (Auto) 10.8, Monocytes (%) (Auto) 11.4, Eosinophils (%) (Auto) 3.0, Basophils (%) (Auto) 0.3, Neutrophils # (Auto ) 7.91, Lymphocytes # (Auto) 1.15, Monocytes # (Auto) 1.21, Eosinophils # (Auto ) 0.32, Basophils # (Auto) 0.03 06/24/16 06:50 Test 06/23/16 20:15 06/24/16 00:00 06/24/16 06:50 Erythrocyte Sedimentation Rate 43 mm/hr (0-21) Prothrombin Time 11.0 SECONDS (9.0-12.0) Prothromb Time International Ratio 1.0 (0.9-1.1) Activated Partial Thromboplast Time 28.5 SECONDS (21.0-31.0) Partial Thromboplastin Ratio 1.1 Total Bilirubin 0.3 mg/dl (0.2-1) Aspartate Amino Transf (AST/SGOT) 29 U/L (15-37) Alanine Aminotransferase (ALT/SGPT) 35 U/L (12-78) Alkaline Phosphatase 147 U/L (45-117) C-Reactive Protein 3.37 mg/dl (0-0.29) Total Protein 6.3 gm/dl (6.4-8.2) Albumin 2.7 gm/dl (3.4-5.0) Globulin 3.6 gm/dl (2.5-4.0) Albumin/Globulin Ratio 0.8 (0.9-2) Urine Color DK YELLOW Urine Appearance CLOUDY (CLEAR) Urine pH 5.0 (4.5-7.5) Urine Specific [place] 1.037 (1.000-1.030) Urine Protein NEG (NEG) Urine Glucose (UA) NEG (NEG) Urine Ketones TRACE (NEG) Urine Occult Blood NEG (NEG) Urine Nitrite NEG (NEG) Urine Bilirubin NEG (NEG) Urine Urobilinogen NEG (NEG) Urine Leukocyte Esterase SMALL (NEG) Urine WBC (Auto) 10-30 /hpf (0-5) Urine RBC (Auto) 0-4 /hpf (0-4) Urine Hyaline Casts (Auto) 1-5 /lpf (0-5) Urine Epithelial Cells (Auto) >30 /lpf (0-5) Urine Bacteria (Auto) NEG (NEG) White Blood Count 10.65 K/uL (4.8-10.8) Red Blood Count 3.96 M/uL (4.2-5.4) Hemoglobin 12.3 g/dL (12.0-16.0) Hematocrit 38.0 % (37-47) Mean Corpuscular Volume 96.0 fL (80-100) Mean Corpuscular Hemoglobin 31.1 pg (25-34) Mean Corpuscular Hemoglobin Concent 32.4 g/dl (32-36) Platelet Count 330 K/uL (130-400) Mean Platelet Volume 11.3 fL (7.4-10.4) Neutrophils (%) (Auto) 74.2 % Lymphocytes (%) (Auto) 10.8 % Monocytes (%) (Auto) 11.4 % Eosinophils (%) (Auto) 3.0 % Basophils (%) (Auto) 0.3 % Neutrophils # (Auto) 7.91 K/uL (1.4-6.5) Lymphocytes # (Auto) 1.15 K/uL (1.2-3.4) Monocytes # (Auto) 1.21 K/uL (0.11-0.59) Eosinophils # (Auto) 0.32 K/uL (0-0.5) Basophils # (Auto) 0.03 K/uL (0-0.2) RDW Standard Deviation 47.5 fL (36.4-46.3) RDW Coefficient of Variation 13.5 % (11.5-14.5) Immature Granulocyte % (Auto) 0.3 % Immature Granulocyte # (Auto) 0.03 K/uL (0.00-0.02) Anion Gap 7.0 mmol/L (3-11) Est Creatinine Clear Calc Drug Dose 61.6 ml/min Estimated GFR () 89.4 Estimated GFR (Non- 77.1 BUN/Creatinine Ratio 15.9 (10-20) Calcium Level 8.2 mg/dl (8.5-10.1) Magnesium Level 1.9 mg/dl (1.8-2.4) Date/Time Source Procedure Growth Status 06/24/16 00:46 Nasal MRSA DNA Surveillance Screen - Final Specimen Negative for MRSA by DNA Probe Complete Assessment and Plan 85 yo female admitted with cellulitis and fluid collection s/p IM nail for left hip fracture done by Dr Sherwood on May 15. Cellulitis / fluid collection - Continue on vancomycin and Zosyn pending blood cultures - Will defer to orthopedics regarding aspiration of fluid Left calf pain and swelling - US Doppler left leg Obstructive Sleep Apnea - CPAP at night Hx left breast ca. - restricted left arm B12 def, depression, anemia of chronic disease - continue outpatient medications, trend Hgb VTE Prophylaxis - Heparin today. Will hold if plan is for surgery. Code - DNR Disposition - Continue on med/surg. PT/OT pending ortho instructions on mobility. Discharge planning ordered. Resident Physician Supervision Note: I interviewed and examined the patient. Discussed with Dr. Edouard and agree with findings and plan as documented in the note. Any exceptions or clarifications are listed here: None Documented By: Nikhil Watkins hip pain about the same just had aspiration - results pending nad breathing unlabored erythema along lateral L leg, around area where incision was hip region cellulitis w concern on abscess - continue vanco and zosyn, await culture,aspiration results, further ortho input. not septic otherwise as above
--- NOTE | 2016-06-24 12:58 | Clinical Documentation Query ---
CLINICAL DOCUMENTATION QUERY Dr. PAUL, In your clinical opinion is this patient being managed for: (X ) Postoperative wound infection with cellulitis ( ) Other explanation of clinical findings (Please Explain) ( ) Unable to determine (Please Define) ( ) Need to Discuss ( ) Not Agree The medical record reflects the following clinical findings, treatment, and risk factors. Clinical Indicators: 85 yo female presented with worsening pain, swelling and erythema L hip at the post op site. WBC 14.25 Treatment:1L NSS bolsu, IV zosyn, IV vancommycin, pending orthopedic consult Risk Factors: recent L hip surgery For accurate coding, clarify if the cellulitis is associated with a post-op wound infection Please clarify and document your clinical opinion in the progress notes and discharge summary. Terms such as "probable", "suspected", "likely", "questionable", "possible", or "still to be ruled out" are acceptable. IF IN AGREEMENT, YOU MUST DOCUMENT ABOVE DIAGNOSTIC STATEMENT IN DAILY PROGRESS NOTES AND DISCHARGE SUMMARY. This document is not part of the patient's record. Thank You, Yudelka Capone, RN [phone]
--- NOTE | 2016-06-24 13:01 | Clinical Documentation Query ---
CLINICAL DOCUMENTATION QUERY Dr. SIERRA, In your clinical opinion is this patient being managed for: ( x ) Postoperative wound infection with cellulitis - see notes ( ) Other explanation of clinical findings (Please Explain) ( ) Unable to determine (Please Define) ( ) Need to Discuss ( ) Not Agree The medical record reflects the following clinical findings, treatment, and risk factors. Clinical Indicators: 85 yo female presented with worsening pain, swelling and erythema L hip at the post op site. WBC 14.25, Treatment:1L NSS bolsu, IV zosyn, IV vancomycin, pending orthopedic consult Risk Factors: recent L hip surgery For accurate coding, clarify if the cellulitis is associated with a post-op wound infection Please clarify and document your clinical opinion in the progress notes and discharge summary. Terms such as "probable", "suspected", "likely", "questionable", "possible", or "still to be ruled out" are acceptable. IF IN AGREEMENT, YOU MUST DOCUMENT ABOVE DIAGNOSTIC STATEMENT IN DAILY PROGRESS NOTES AND DISCHARGE SUMMARY. This document is not part of the patient's record. Thank You, Yudelka Capone, [place] [phone]
--- NOTE | 2016-06-24 13:48 | DIAGNOSTIC IMAGING REPORT ---
ULTRASOUND LEFT LOWER EXTREMITY VENOUS CLINICAL HISTORY: Immobilized patient. Hip fracture. COMPARISON STUDY: Bilateral lower extremity venous ultrasound dated 12/06/2013. TECHNIQUE: Real-time, grayscale, and color Doppler sonography of the deep veins of the left lower extremity was performed from the inguinal crease to the calf. Compression and augmentation were utilized. FINDINGS: There is no sonographic evidence of deep venous thrombosis identified in the left lower extremity. The common femoral, superficial femoral, and popliteal veins are patent and normally compressible. The greater saphenous vein and the profunda femoris vein at the junction with the common femoral vein are clear. The visualized calf veins are patent. IMPRESSION: There is no sonographic evidence of deep venous thrombosis identified in the left lower extremity. Electronically signed by: Dennys Marrero M.D. 06/24/2016 1:47 PM
--- NOTE | 2016-06-24 14:11 | CONSULTATION REPORT ---
DATE OF CONSULTATION: 06/24/2016 CHIEF COMPLAINT: Cellulitis of the left thigh area. HISTORY OF PRESENT ILLNESS: The patient is an 85-year-old female, who is about 5 weeks status post IM nailing of the left hip fracture done by Dr. Sherwood, initially transferred to the [facility] postoperatively. She was readmitted yesterday as she was noted to have some cellulitis around the left hip. She does not seem to have much pain with the left hip at this time. No specific complaints of fevers with this. She states she just feels warm at times. No other complaints at this time. Past medical history including surgical history, family history, social history and medications all reviewed in the patient's chart. Please refer to the admission H\T\P for complete details. ALLERGIES: No known drug allergies. PHYSICAL EXAMINATION: She is alert. She is in no distress at this time, lying supine in bed. She was seen and examined by Dr. Paulino today as well. She does have swelling around the lateral thigh around the incision areas. There are 2 incisions and some slight superficial dehiscence in the distal aspect of the most proximal incision. She has surrounding erythema in the left thigh. No active drainage from the incision areas at this time. She is able to tolerate some gentle motion and minimal motion of her left hip done at this time. She is able to dorsiflex, plantarflex appropriately. LABORATORY DATA: The labs were reviewed. White blood cell count on admission was 14.25, down today to 10.65. Sed rate yesterday was 43. CRP was 3.37. PT/INR 11.0/1.0. She has been afebrile. IMAGING DATA: CT scan was reviewed which does show a fluid collection in the lateral thigh could represent a seroma, hematoma or abscess. ASSESSMENT: Approximately 5 weeks status post intramedullary nailing of the left hip fracture with a left thigh cellulitis, possible deeper infection. PLAN: She was seen and examined by Dr. Paulino today as well. CT scan was already obtained. She was on her way to ultrasound and we did speak with the radiologist about attempting an ultrasound guided aspiration of the fluid collection seen on CT scan. If successful, I will have this fluid sent off for cell count with differential, Gram stain, and aerobic and anaerobic cultures. She is on IV antibiotics which should be continued at this point. We will order her a diet today, but keep her n.p.o. after midnight pending the results of the fluid aspiration. We will also order an x-ray of her hip today.
--- NOTE | 2016-06-24 14:39 | DIAGNOSTIC IMAGING REPORT ---
LEFT PELVIS/UNILATERAL HIP 2-3VIEWS CLINICAL HISTORY: Left hip cellulitis. Pain. Postop hip fracture. COMPARISON STUDY: CT scan dated 06/23/2016 FINDINGS: There is an internally fixated left hip fracture with an intratrochanteric nail and interlocking medullary klaus. Alignment remains similar to the prior CT scan. There are moderately advanced degenerative changes in the lower lumbar spine. IMPRESSION: No change in the alignment of the internally fixated intertrochanteric left hip fracture. Electronically signed by: Forest Perkins M.D. 06/24/2016 2:38 PM
[2016-06-24 14:57] LABS: FLUID APPEARANCE CLOUDY; FLUID MONONUC 26.3 %; FLUID POLYNUC 73.7 %; FLUID RBC (A) 60000 /uL; FLUID WBC (A) 3814 /uL
[2016-06-24 15:13] VITALS: BP 146/82; PULSE 74; TEMP 36.6; O2SAT 99
--- NOTE | 2016-06-24 15:22 | DIAGNOSTIC IMAGING REPORT ---
ULTRASOUND GUIDED ASPIRATION OF LEFT HIP FLUID COLLECTION CLINICAL HISTORY: Cellulitis. Wound infection. COMPARISON STUDY: CT of the left hip June 23, 2016. PROCEDURE: Sonography of the left hip demonstrated a subincisional fluid collection within the lateral subcutaneous tissues of the left thigh which corresponds to the collection shown on CT. This was targeted for aspiration. The procedure, risks and benefits were discussed with the patient. The patient agreed to the procedure and informed written consent was obtained. The procedure was performed by Dr. Lockhart. Skin overlying the left hip was prepped and draped in sterile fashion and local anesthesia was achieved with 1% lidocaine. Under direct ultrasound guidance, an 18-gauge 3 and 1/2 inch spinal needle was directed into the fluid collection. 15 cc of serosanguineous fluid was aspirated. No additional fluid could be aspirated given the viscous nature of the fluid. This fluid was sent to laboratory for Gram stain, culture and sensitivity. IMPRESSION: Ultrasound guided aspiration of 15 cc of serosanguineous fluid from the subcutaneous fluid collection of the lateral left thigh. Fluid sent to laboratory for Gram stain, culture and sensitivity. No additional fluid could be aspirated given the viscous nature of the fluid. Electronically signed by: Harley Lockhart M.D. 06/24/2016 3:20 PM
[2016-06-24] MEDS ORDERED: HEPARIN SOD 5000 UNIT/0.5 ML CARP SQ STA (18:19)
[2016-06-24 23:00] VITALS: BP 160/70; PULSE 79; TEMP 36.6
[2016-06-24 23:49] VITALS: BP 134/74; PULSE 76; O2SAT 97
[2016-06-25] MEDS: PIPERACILL/TAZOBAC IV 3.375 GM in DEXTROSE 5% 100ML 100 ML IV SCH ×3 (01:51→17:26)
[2016-06-25] MEDS: NSS + 20MEQ KCL 1000ML 1,000 ML IV SCH (05:56)
[2016-06-25 07:01] LABS: BASO % 0.2 %; BASO ABS # 0.02 K/uL (0-0.2); COMPLETE YES; EOS % 6.9 %; HEMATOCRIT 38.1 % (37-47); IG% 0.4 %; LYMPH % 17.3 %; LYMPH ABS # 1.42 K/uL (1.2-3.4); MEAN CELL VOLUME 96.5 fL (80-100); MEAN CORPUSCULAR HEMOGLOBIN 31.1 pg (25-34); MEAN CORPUSCULAR HGB CONC 32.3 g/dl (32-36); MEAN PLATELET VOLUME 11.2 fL (7.4-10.4); MONO % 11.9 %; NEUT % 63.3 %; PLATELET COUNT 333 K/uL (130-400); RED BLOOD COUNT 3.95 M/uL (4.2-5.4); WHITE BLOOD COUNT 8.21 K/uL (4.8-10.8)
[2016-06-25 07:39] LABS: BUN/CREATININE RATIO 15.4 (10-20); C-REACTIVE PROTEIN 4.92 mg/dl (0-0.29); CALCIUM 8.5 mg/dl (8.5-10.1); CREATININE 0.57 mg/dl (0.60-1.20); MAGNESIUM 2.1 mg/dl (1.8-2.4); POTASSIUM 3.7 mmol/L (3.5-5.1)
[2016-06-25] MEDS ORDERED: SODIUM CHLOR 0.45% + 20MEQ KCL 1,000 ML IV SCH (08:15)
[2016-06-25] MEDS: DOCUSATE SODIUM 100 MG CAP PO SCH ×2 (08:52→21:00)
[2016-06-25] MEDS: CALCIUM 600MG + VIT D 400 IU TAB PO SCH (08:52)
[2016-06-25] MEDS: CYANOCOBALAMIN 100 MCG TAB (VIT B-12) PO SCH (08:53)
[2016-06-25] MEDS: MULTIVITAMIN TAB PO SCH (08:53)
[2016-06-25] MEDS: CHOLECALCIFEROL 1000 INTER.UNIT TAB PO SCH (08:53)
[2016-06-25] MEDS: TRAZODONE HCL 50 MG TAB PO SCH ×2 (08:53→20:59)
[2016-06-25] MEDS: GABAPENTIN 100 MG CAP PO SCH ×2 (08:53→21:01)
[2016-06-25] MEDS: FLUOXETINE HCL 20 MG CAP PO SCH (08:54)
[2016-06-25] MEDS: CLOTRIMAZOLE 1% CR 15 GM TUBE EXT SCH ×2 (08:54→21:02)
[2016-06-25] MEDS: ASCORBIC ACID 500 MG TAB PO SCH ×2 (10:00→21:02)
[2016-06-25] MEDS: VANCOMYCIN INJ 1,000 MG in SODIUM CHLORIDE 0.9% 250ML 250 ML IV SCH ×2 (10:30→22:13)
--- NOTE | 2016-06-25 11:22 | Family Medicine Progress Note ---
Progress Note Date of Service Jun 25, 2016. Subjective Pt evaluation today including: conversation w/ patient, physical exam, chart review, lab review, review of studies, review of inpatient medication list She feels 'pissy' this morning. Making a joke out of everything. Denies chest/ abdo pain, passing loose stool but not unusual for her, no nausea or vomiting. Spoke to her daughter over the phone. Her personality is making jokes all the time. Concern for some depression during last admission for hip fracture and at [facility] but looking back at records no changes in her medications were made. She apparently hates [facility] and may wish to go back to a different rehabilitation SNF. All Other Systems: Reviewed and Negative Medications Current Inpatient Medications Medications (Trade) Dose Ordered Sig/Doug Route Start Time Stop Time Status Last Admin Dose Admin Acetaminophen (Tylenol Tab) 650 mg Q4H PRN PO 06/23/16 21:30 07/23/16 21:29 Zolpidem Tartrate (Ambien Tab) 5 mg HSZ PRN PO 06/23/16 21:30 07/23/16 21:29 Ascorbic Acid (Vitamin C Tab) 1,000 mg BID PO 06/24/16 09:00 07/24/16 08:59 06/24/16 20:29 1,000 MG Bisacodyl (Dulcolax Supp) 10 mg UD PRN MI 06/23/16 21:30 07/23/16 21:29 Cholecalciferol (Vitamin D Tab) 1,000 inter.unit DAILY PO 06/24/16 09:00 07/24/16 08:59 06/25/16 08:53 1,000 INTER.UNIT Clotrimazole (Lotrimin 1% Crm) 1 appln BID EXT 06/24/16 09:00 07/24/16 08:59 06/25/16 08:54 1 APPLN Docusate Sodium (coLACE CAP) 200 mg BID PO 06/24/16 09:00 07/24/16 08:59 06/25/16 08:52 200 MG Fluoxetine HCl (Prozac Cap) 40 mg QAM PO 06/24/16 09:00 07/24/16 08:59 06/25/16 08:54 40 MG Gabapentin (Neurontin Cap) 100 mg BID PO 06/24/16 09:00 07/24/16 08:59 06/25/16 08:53 100 MG Magnesium Hydroxide (Milk Of Magnesia Susp) 30 ml UD PRN PO 06/23/16 21:30 07/23/16 21:29 Multivitamins (Multivitamin Tab) 1 tab DAILY PO 06/24/16 09:00 07/24/16 08:59 06/25/16 08:53 1 TAB Oxycodone/ Acetaminophen (Percocet 5-325MG Tab) 1 tab Q6H PRN PO 06/23/16 21:30 07/07/16 21:29 Sodium Biphosphate/ Sodium Phosphate (Fleet Enema) 133 ml UD PRN MI 06/23/16 21:30 07/23/16 21:29 Tramadol HCl (Ultram Tab) 50 mg Q6H PRN PO 06/23/16 21:30 07/23/16 21:29 06/24/16 00:41 50 MG Trazodone HCl (Desyrel Tab) 50 mg BID PO 06/24/16 09:00 07/24/16 08:59 06/25/16 08:53 50 MG Calcium/Vitamin D (Caltrate Plus Tab) 1 tab DAILY PO 06/24/16 09:00 07/24/16 08:59 06/25/16 08:52 1 TAB Cyanocobalamin (Vitamin B-12 Tab) 1,000 mcg QAM PO 06/24/16 09:00 07/24/16 08:59 06/25/16 08:53 1,000 MCG Polyethylene (Miralax Powder Packet) 17 gm DAILY PRN PO 06/23/16 21:30 07/23/16 21:29 Ondansetron HCl (Zofran Inj) 4 mg Q6H PRN IV 06/23/16 21:30 07/23/16 21:29 Vancomycin HCl 1 ea 1 ea UD PRN N/A 06/23/16 21:40 07/23/16 21:39 Piperacillin Sod/ Tazobactam Sod/ Dextrose (Zosyn Iv/D5 100ml) 115 ml @ 28.75 mls/ hr Q8H IV 06/24/16 02:00 07/04/16 01:59 06/25/16 01:51 28.75 MLS/HR Piperacillin Sod/ Tazobactam Sod 1 ea 1 ea UD PRN N/A 06/23/16 21:45 07/23/16 21:44 Vancomycin HCl 1000 mg/Sodium Chloride 270 ml @ 125 mls/hr Q12H IV 06/24/16 10:00 07/03/16 20:59 06/24/16 22:09 125 MLS/HR Potassium Chloride/Sodium Chloride (1/2 Nss + 20meq KCl 1000ml) 1,000 ml @ 100 mls/hr Q10H IV 06/25/16 08:15 07/25/16 08:14 06/25/16 09:00 100 MLS/HR Objective Vital Signs Date Time Temp Pulse Resp B/P Pulse Ox O2 Delivery O2 Flow Rate FiO2 06/25/16 07:30 CPAP 06/24/16 23:49 76 134/74 97 CPAP 06/24/16 23:05 CPAP 06/24/16 23:00 36.6 79 20 160/70 Room Air 06/24/16 15:30 Nasal Cannula 2.0 06/24/16 15:13 36.6 74 18 146/82 99 Nasal Cannula 2.0 Physical Exam General Appearance: WD/WN, no apparent distress Eyes: normal inspection (pupils equal), EOMI Neck: supple, no JVD Respiratory/Chest: chest non-tender, lungs clear, normal breath sounds, no respiratory distress, no accessory muscle use Cardiovascular: regular rate, rhythm, no murmur Abdomen: normal bowel sounds, non tender, soft Extremities: + pertinent finding (flexion of hip to 20 degrees without pain, NV intact distal to op site) Neurologic/Psychiatric: alert, normal mood/affect, oriented x 3 Skin: + pertinent finding (cellulitis darker red today without fluid discharge or weeping, marked with black pen) Laboratory Results 06/25/16 06:10 Red Blood Count 3.95, Mean Corpuscular Volume 96.5, Mean Corpuscular Hemoglobin 31.1, Mean Corpuscular Hemoglobin Concent 32.3, Mean Platelet Volume 11.2, Neutrophils (%) (Auto) 63.3, Lymphocytes (%) (Auto) 17.3, Monocytes (%) (Auto) 11.9, Eosinophils (%) (Auto) 6.9, Basophils (%) (Auto) 0.2, Neutrophils # (Auto ) 5.19, Lymphocytes # (Auto) 1.42, Monocytes # (Auto) 0.98, Eosinophils # (Auto ) 0.57, Basophils # (Auto) 0.02 06/25/16 06:10 Test 06/24/16 14:30 06/25/16 06:10 Body Fluid Source OTHER Body Fluid Color RED Body Fluid Appearance CLOUDY Body Fluid WBC 3814 /uL Body Fluid RBC 15036 /uL Body Fluid Polynuclear WBCs % Body Fluid Polynuclear WBCs (%) 73.7 % Body Fluid Mononuclear WBCs (%) 26.3 % White Blood Count 8.21 K/uL (4.8-10.8) Red Blood Count 3.95 M/uL (4.2-5.4) Hemoglobin 12.3 g/dL (12.0-16.0) Hematocrit 38.1 % (37-47) Mean Corpuscular Volume 96.5 fL (80-100) Mean Corpuscular Hemoglobin 31.1 pg (25-34) Mean Corpuscular Hemoglobin Concent 32.3 g/dl (32-36) Platelet Count 333 K/uL (130-400) Mean Platelet Volume 11.2 fL (7.4-10.4) Neutrophils (%) (Auto) 63.3 % Lymphocytes (%) (Auto) 17.3 % Monocytes (%) (Auto) 11.9 % Eosinophils (%) (Auto) 6.9 % Basophils (%) (Auto) 0.2 % Neutrophils # (Auto) 5.19 K/uL (1.4-6.5) Lymphocytes # (Auto) 1.42 K/uL (1.2-3.4) Monocytes # (Auto) 0.98 K/uL (0.11-0.59) Eosinophils # (Auto) 0.57 K/uL (0-0.5) Basophils # (Auto) 0.02 K/uL (0-0.2) RDW Standard Deviation 47.6 fL (36.4-46.3) RDW Coefficient of Variation 13.4 % (11.5-14.5) Immature Granulocyte % (Auto) 0.4 % Immature Granulocyte # (Auto) 0.03 K/uL (0.00-0.02) Anion Gap 7.0 mmol/L (3-11) Est Creatinine Clear Calc Drug Dose 76.7 ml/min Estimated GFR () 97.3 Estimated GFR (Non- 83.9 BUN/Creatinine Ratio 15.4 (10-20) Calcium Level 8.5 mg/dl (8.5-10.1) Magnesium Level 2.1 mg/dl (1.8-2.4) C-Reactive Protein 4.92 mg/dl (0-0.29) Assessment and Plan 85 yo female admitted with cellulitis and fluid collection s/p IM nail for left hip fracture done by Dr Sherwood on May 15. Post operative surgical wound infection with Cellulitis and fluid collection ( possible abscess) - Continue on vancomycin and Zosyn and re-image fluid collection tomorrow as description is of serosanguineous 15ml but thicker fluid could not be aspirated. CT suggestive of larger collection. Will discuss with radiology CT vs. US for re-imaging. - blood culture and fluid culture negative to date. Diarrhea - possibly chronic but given broad spectrum antibiotic use will test for c. diff - test stool for c.diff Left calf pain and swelling - US Doppler - no DVT. post operative swelling and immobility with poor venous return Obstructive Sleep Apnea - CPAP at night Hx left breast ca. - restricted left arm B12 def, depression, anemia of chronic disease - continue outpatient medications, trend Hgb VTE Prophylaxis - Heparin 5000 units Q8H SQ Code - DNR as per patient's wishes Disposition - Continue on med/surg. PT/OT pending ortho instructions on mobility. Discharge planning ordered. Resident Physician Supervision Note: I interviewed and examined the patient. Discussed with [Silke] and agree with findings and plan as documented in the note. Any exceptions or clarifications are listed here: [None] Documented By: Nikhil Watkins no new complaints awaiting definitive plan from ortho ros otherwise neg vitals noted gen - pleasant nad heent - nc at mmm L leg - erythema around incision less bright red, smaller area of involvement hip cellulitis / possible underlying abscess - continue zosyn, vanco pending further cx growth, re-image area to reasses fluid collection otherwise as above
[2016-06-25] MEDS: HEPARIN SOD 5000 UNIT/0.5 ML CARP SQ SCH ×2 (13:49→22:12)
[2016-06-25 15:11] VITALS: BP 162/68; PULSE 81; TEMP 37.1; O2SAT 90
--- NOTE | 2016-06-25 15:58 | CONSULTATION REPORT ---
DATE OF CONSULTATION: 06/25/2016 DATE OF CONSULTATION: 06/25/2016. SUBJECTIVE: Homa is an 85-year-old female admitted with some cellulitis around the left hip area 5 weeks status post IM nailing for hip fracture. She says she does not really know if her hip hurts her at this point. She says she just sort of hurts all over. She has been bedrest apparently. No other complaints at this time. OBJECTIVE: GENERAL: She is alert, no distress. VITAL SIGNS: Stable. She has been afebrile. White blood cell count is down to 8.21 today. C-reactive protein is 4.92. She had an aspiration done under ultrasound guidance by the radiologist yesterday which showed no organisms seen at this point and no growth to date. Examination of the left hip area there is no active drainage at this time. There is some redness still that has been outlined by someone with a pen that is still mostly erythematous around the proximal incision. The distal incision does appear to have less redness around it today, there is some tenderness to palpation around the swelling that she has laterally. She is able to dorsiflex and plantarflex her foot appropriately. ASSESSMENT: Left hip cellulitis and swelling, possible seroma versus infection, approximately 5 weeks status post IM nailing of her left hip fracture. PLAN: She was seen and examined by Dr. Paulino today as well. She had this hip aspiration done yesterday showed no organisms yet, no growth to date. She is on IV antibiotics. Would recommend continuing the the IV antibiotics. We will order some physical therapy for her at this point. She can weightbear as tolerated. We will continue her diet today, continue to follow this along clinically. If she continues to improve we will hold off any surgical intervention, continue with the antibiotics. Certainly if things are not improving with her hip or her cultures grow something that she may need more of a surgical intervention. Continue DVT prophylaxis per the hospitalist service. She has Heparin ordered at this point as well. X-rays reveal some settling of fracture site with head tipping into some varus. Helical blade is still within the head. She is now 6 weeks out and we will just have to see how this goes. She can WBAT but will need to check this every 2-4 until it heals more convincingly or fails in which she would need a calcar replacing hemiarthroplasty. The fluid aspirate in not consistent with an abscess, but more of a seroma. Will follow culture results and clinical exam. I do not think she needs surgical treatment at this time. Will see how she responds to medical treatment. Any questions can be directed at me at [phone]. [facility]
[2016-06-25] MEDS: TRAMADOL HCL 50 MG TAB PO PRN (17:27)
[2016-06-25] MEDS: OXYCODONE/ACETAMINOPHEN 5-325 TAB PO PRN (21:00)
[2016-06-25] MEDS ORDERED: VANCOMYCIN TROUGH SCH (21:30)
[2016-06-25 22:59] VITALS: BP 129/65; PULSE 81; TEMP 36.6; O2SAT 90
[2016-06-26] MEDS: PIPERACILL/TAZOBAC IV 3.375 GM in DEXTROSE 5% 100ML 100 ML IV SCH ×2 (01:31→09:48)
[2016-06-26] MEDS: HEPARIN SOD 5000 UNIT/0.5 ML CARP SQ SCH ×3 (05:39→21:52)
[2016-06-26 06:52] LABS: BASO % 0.2 %; BASO ABS # 0.02 K/uL (0-0.2); COMPLETE YES; EOS % 8.3 %; HEMATOCRIT 36.8 % (37-47); IG% 0.3 %; LYMPH % 25.6 %; LYMPH ABS # 2.32 K/uL (1.2-3.4); MEAN CELL VOLUME 93.9 fL (80-100); MEAN CORPUSCULAR HEMOGLOBIN 30.6 pg (25-34); MEAN CORPUSCULAR HGB CONC 32.6 g/dl (32-36); MONO % 11.2 %; NEUT % 54.4 %; PLATELET COUNT 347 K/uL (130-400); RED BLOOD COUNT 3.92 M/uL (4.2-5.4); WHITE BLOOD COUNT 9.08 K/uL (4.8-10.8)
[2016-06-26 07:19] VITALS: BP 168/78; PULSE 75; TEMP 35.9; O2SAT 90
[2016-06-26 07:19] LABS: BUN/CREATININE RATIO 8.8 (10-20); CALCIUM 8.7 mg/dl (8.5-10.1); CREATININE 0.66 mg/dl (0.60-1.20); MAGNESIUM 1.9 mg/dl (1.8-2.4); POTASSIUM 3.4 mmol/L (3.5-5.1)
--- NOTE | 2016-06-26 08:03 | PROGRESS NOTE ---
DATE: 06/26/2016 SUBJECTIVE: 85-year-old female now about 6 weeks out from IM nailing of left intertrochanteric fracture complicated by some cellulitis and readmitted for this. She seems to be doing okay. Not a lot of pain but has not been getting up and around much. She is resting this morning and was sleeping when I went in to visit her. OBJECTIVE: VITAL SIGNS: Temperature 35.9. Vital signs stable. PHYSICAL EXAMINATION: GENERAL: Reveals a pleasant elderly female. She is lying in bed and seemed to be resting comfortably. EXTREMITIES: Examination of the left leg reveals the redness around the incisions to be somewhat improved. The swelling looks to be somewhat improved as well. She can dorsiflex and plantarflex her foot appropriately. She is neurologically intact. LABS: White cell count 9.08. Hemoglobin 12, hematocrit 36.8. Electrolytes are relatively stable. ASSESSMENT: 85-year-old white female in about 6 weeks out from IM nailing of a left intertrochanteric fracture readmitted with some cellulitis and what looks to be a seroma. The culture results have been no growth to date. Clinically, her leg looks to be improving. She does have some loss of fixation on x-ray which is a bit of a concern, but really not much you can do other than just wait and see how this comes along. PLAN: We are going to resume some therapy. We will let her weightbear as tolerated. I am concerned that this fixation may fail, but she is far enough out it does not do any good to keep her limited weightbearing. The aspiration is most consistent with a seroma. It has no growth to date. Clinically, she seems to be improving. It is still difficult to determine whether this fixation will fail or whether it will hold up and continue to heal. At this point, I recommend continued medical management. We will begin therapy and begin mobilizing her. She can weightbear as tolerated left lower extremity. Orthopedically, she seems to be pretty stable and improving. The seroma has been aspirated and there has been no growth. I think she could probably be just converted to p.o. antibiotics and see how she does for a while. I am not planning any surgery at this point unless things start to deteriorate or she loses fixation of the fracture itself. Obviously, should continue DVT prophylaxis including TEDs and SCDs. Any questions can be directed to me at [phone]. This is a difficult situation as far as making a determination. As long she is clinically improving we will continue nonoperative care.
[2016-06-26] MEDS ORDERED: POTASSIUM CHLORIDE 10 MEQ TABCR PO ONE (08:27)
[2016-06-26] MEDS: DOCUSATE SODIUM 100 MG CAP PO SCH ×2 (08:42→20:54)
[2016-06-26] MEDS: CALCIUM 600MG + VIT D 400 IU TAB PO SCH (08:42)
[2016-06-26] MEDS: CYANOCOBALAMIN 100 MCG TAB (VIT B-12) PO SCH (08:42)
[2016-06-26] MEDS: ASCORBIC ACID 500 MG TAB PO SCH ×2 (08:43→20:53)
[2016-06-26] MEDS: GABAPENTIN 100 MG CAP PO SCH ×2 (08:43→20:55)
[2016-06-26] MEDS: MULTIVITAMIN TAB PO SCH (08:43)
[2016-06-26] MEDS: CHOLECALCIFEROL 1000 INTER.UNIT TAB PO SCH (08:44)
[2016-06-26] MEDS: FLUOXETINE HCL 20 MG CAP PO SCH (08:44)
[2016-06-26] MEDS: CLOTRIMAZOLE 1% CR 15 GM TUBE EXT SCH ×2 (08:44→20:54)
[2016-06-26] MEDS: TRAZODONE HCL 50 MG TAB PO SCH ×2 (08:44→20:52)
[2016-06-26] MEDS: VANCOMYCIN INJ 1,000 MG in SODIUM CHLORIDE 0.9% 250ML 250 ML IV SCH ×2 (09:48→21:42)
[2016-06-26 11:17] VITALS: BP 147/70; PULSE 77; TEMP 36.6; O2SAT 98
--- NOTE | 2016-06-26 13:00 | DIAGNOSTIC IMAGING REPORT ---
LEFT HIP CT CT DOSE: 854.38 mGy.cm HISTORY: reassess fluid collection s/p aspiration L hip TECHNIQUE: Multiaxial CT images of the left hip were performed and reformatted in the sagittal and coronal plane without the use of contrast. COMPARISON: Left hip CT 06/23/2016. FINDINGS: Patient is status post internal fixation of a left proximal left femoral fracture with intramedullary klaus and interlocking pin. The fracture remains impacted. The alignment is unchanged. The visualized pelvic bones are intact. Trace pelvic free fluid. Colonic diverticulosis. Left lateral hip/thigh skin thickening and subcutaneous fat stranding/edema is again noted. The subcutaneous fluid collection at the incision site has slightly decreased in size. This currently measures 9 x 4.9 x 2.2 cm. This previously measured 10 x 4.8 x 3.4 cm. There is also a second smaller focus of fluid at the lateral mid thigh subcutaneous fat. This remains unchanged. IMPRESSION: 1. Slight decrease in size in the nonspecific 9.0 x 4.9 x 2.2 cm subcutaneous fluid collection at the incision site within the left lateral hip/thigh. This could represent a postoperative seroma, hematoma, or abscess. 2. Postoperative changes consistent with internal fixation of a left hip fracture. The alignment remains unchanged. Electronically signed by: Cristobal Ramsay M.D. 06/26/2016 12:58 PM
[2016-06-26] MEDS: TRAMADOL HCL 50 MG TAB PO PRN (13:28)
--- NOTE | 2016-06-26 13:42 | Pharmacy Progress Note ---
Pharmacy Antibiotic Prog Note Date of Service: Jun 26, 2016. Subjective: The patient is currently an day #4 of Vancomycin 1000 mg IV every 12 hours for treatment of cellulitis with possible abscess. She received Zosyn IV from 06/23-06/26 am. Objective: Height (Feet): 5 Height (Inches): 5.00 Weight (Kilograms): 86.000 Levels: Item Value Date Time Vancomycin Level Trough 18.2 mcg/ml 06/25/16 2145 Lab Results (24hrs): Laboratory Tests Test 06/26/16 06:15 BUN/Creatinine Ratio 8.8 Blood Urea Nitrogen 6 mg/dl Creatinine 0.66 mg/dl White Blood Count 9.08 K/uL Red Blood Count 3.92 M/uL Hemoglobin 12.0 g/dL Hematocrit 36.8 % Mean Corpuscular Volume 93.9 fL Mean Corpuscular Hemoglobin 30.6 pg Mean Corpuscular Hemoglobin Concent 32.6 g/dl Platelet Count 347 K/uL Mean Platelet Volume 11.0 fL Neutrophils (%) (Auto) 54.4 % Lymphocytes (%) (Auto) 25.6 % Monocytes (%) (Auto) 11.2 % Eosinophils (%) (Auto) 8.3 % Basophils (%) (Auto) 0.2 % Neutrophils # (Auto) 4.94 K/uL Lymphocytes # (Auto) 2.32 K/uL Monocytes # (Auto) 1.02 K/uL Eosinophils # (Auto) 0.75 K/uL Basophils # (Auto) 0.02 K/uL Micro Results: Item Value Date Time C.difficile Toxin B Gene (PCR) - Final Complete 06/26/16 0910 Stool No C. difficile toxin B gene detected Gram Stain - Final Resulted 06/24/16 1430 Aspirate - Other Thigh , Left MRSA DNA Surveillance Screen - Final Complete 06/24/16 0046 Nasal Specimen Negative for MRSA by DNA Probe Urine Culture - Final Complete 06/24/16 0000 Urine , Clean Catch NO GROWTH - LESS THAN 1,000 COLONIES/ML Blood Culture - Preliminary Resulted 06/23/16 2035 Blood NO GROWTH TO DATE. Blood Culture - Preliminary Resulted 06/23/162014 Blood NO GROWTH TO DATE. Assessment & Plan: Assessment 85 year old female receiving empiric Vancomycin IV for treatment of cellulitis with possible abscess. Risk factors for antimicrobial resistance -> recent hospitalization for hip fracture (05/14-05/17). Patient was evaluated by ortho - > not a candidate for surgery, consider switch to PO antibiotics per progress note Plan Vancomycin IV * Level of 18.2 mcg/mL is therapeutic. Level should be close to steady state. Patient is unlikely to have significant drug accumulation. * Continue 1000 mg (11.6 mg/kg) IV every 12 hours. * Goal trough level estimate: ~15 mcg/mL. * Will order repeat trough level for 06/26/16. Pharmacy will continue to follow and will adjust dose/frequency as necessary. Thank you
--- NOTE | 2016-06-26 15:43 | Family Medicine Progress Note ---
Progress Note Date of Service Jun 26, 2016. Subjective Pt evaluation today including: conversation w/ patient, physical exam, chart review, lab review, review of studies, conversation w/ vocational rehab consultant (Dr Paulino), review of inpatient medication list Voiding: no voiding problems Mrs Maldonado feels 'pissy' again today. No acute changes overnight. All Other Systems: Reviewed and Negative Medications Current Inpatient Medications Medications (Trade) Dose Ordered Sig/Doug Route Start Time Stop Time Status Last Admin Dose Admin Acetaminophen (Tylenol Tab) 650 mg Q4H PRN PO 06/23/16 21:30 07/23/16 21:29 Zolpidem Tartrate (Ambien Tab) 5 mg HSZ PRN PO 06/23/16 21:30 07/23/16 21:29 Ascorbic Acid (Vitamin C Tab) 1,000 mg BID PO 06/24/16 09:00 07/24/16 08:59 06/26/16 08:43 1,000 MG Bisacodyl (Dulcolax Supp) 10 mg UD PRN ID 06/23/16 21:30 07/23/16 21:29 Cholecalciferol (Vitamin D Tab) 1,000 inter.unit DAILY PO 06/24/16 09:00 07/24/16 08:59 06/26/16 08:44 1,000 INTER.UNIT Clotrimazole (Lotrimin 1% Crm) 1 appln BID EXT 06/24/16 09:00 07/24/16 08:59 06/26/16 08:44 1 APPLN Docusate Sodium (coLACE CAP) 200 mg BID PO 06/24/16 09:00 07/24/16 08:59 06/25/16 21:00 200 MG Fluoxetine HCl (Prozac Cap) 40 mg QAM PO 06/24/16 09:00 07/24/16 08:59 06/26/16 08:44 40 MG Gabapentin (Neurontin Cap) 100 mg BID PO 06/24/16 09:00 07/24/16 08:59 06/26/16 08:43 100 MG Magnesium Hydroxide (Milk Of Magnesia Susp) 30 ml UD PRN PO 06/23/16 21:30 07/23/16 21:29 Multivitamins (Multivitamin Tab) 1 tab DAILY PO 06/24/16 09:00 07/24/16 08:59 06/26/16 08:43 1 TAB Oxycodone/ Acetaminophen (Percocet 5-325MG Tab) 1 tab Q6H PRN PO 06/23/16 21:30 07/07/16 21:29 06/25/16 21:00 1 TAB Sodium Biphosphate/ Sodium Phosphate (Fleet Enema) 133 ml UD PRN ID 06/23/16 21:30 07/23/16 21:29 Tramadol HCl (Ultram Tab) 50 mg Q6H PRN PO 06/23/16 21:30 07/23/16 21:29 06/26/16 13:28 50 MG Trazodone HCl (Desyrel Tab) 50 mg BID PO 06/24/16 09:00 07/24/16 08:59 06/26/16 08:44 50 MG Calcium/Vitamin D (Caltrate Plus Tab) 1 tab DAILY PO 06/24/16 09:00 07/24/16 08:59 06/26/16 08:42 1 TAB Cyanocobalamin (Vitamin B-12 Tab) 1,000 mcg QAM PO 06/24/16 09:00 07/24/16 08:59 06/26/16 08:42 1,000 MCG Polyethylene (Miralax Powder Packet) 17 gm DAILY PRN PO 06/23/16 21:30 07/23/16 21:29 Ondansetron HCl (Zofran Inj) 4 mg Q6H PRN IV 06/23/16 21:30 07/23/16 21:29 Vancomycin HCl 1 ea 1 ea UD PRN N/A 06/23/16 21:40 07/23/16 21:39 Vancomycin HCl/ Sodium Chloride (Vancomycin Inj/ Nss 250ml) 270 ml @ 125 mls/hr Q12H IV 06/24/16 10:00 07/03/16 20:59 06/26/16 09:48 125 MLS/HR Heparin Sodium (Porcine) (Heparin Sq 5000 Unit/0.5ml) 5,000 unit Q8 SQ 06/25/16 14:00 07/25/16 13:59 06/26/16 13:27 5,000 UNIT Objective Vital Signs Date Time Temp Pulse Resp B/P Pulse Ox O2 Delivery O2 Flow Rate FiO2 06/26/16 11:17 36.6 77 16 147/70 98 Room Air 06/26/16 07:40 CPAP 06/26/16 07:19 35.9 75 16 168/78 90 CPAP 06/25/16 23:24 CPAP 06/25/16 22:59 36.6 81 14 129/65 90 Room Air 06/25/16 15:40 Nasal Cannula 2.0 Physical Exam General Appearance: no apparent distress Eyes: normal inspection Neck: supple, no JVD, trachea midline Respiratory/Chest: chest non-tender, lungs clear, normal breath sounds, no respiratory distress, no accessory muscle use Cardiovascular: regular rate, rhythm, no murmur Abdomen: normal bowel sounds, non tender, soft Extremities: normal capillary refill, + calf tenderness (left calf - no DVT), + pedal edema (trace right 1+ left) Neurologic/Psychiatric: alert, normal mood/affect, oriented x 3 Skin: warm/dry, + pertinent finding (cellulitis appears darker red, mild improvement from yesterday, swelling appears increased, weeping yellow crusting over proximal surgical scar) Laboratory Results 06/26/16 06:15 Red Blood Count 3.92, Mean Corpuscular Volume 93.9, Mean Corpuscular Hemoglobin 30.6, Mean Corpuscular Hemoglobin Concent 32.6, Mean Platelet Volume 11.0, Neutrophils (%) (Auto) 54.4, Lymphocytes (%) (Auto) 25.6, Monocytes (%) (Auto) 11.2, Eosinophils (%) (Auto) 8.3, Basophils (%) (Auto) 0.2, Neutrophils # (Auto ) 4.94, Lymphocytes # (Auto) 2.32, Monocytes # (Auto) 1.02, Eosinophils # (Auto ) 0.75, Basophils # (Auto) 0.02 06/26/16 06:15 Test 06/25/16 21:45 06/26/16 06:15 Vancomycin Level Trough 18.2 mcg/ml (SEE COMMENT) White Blood Count 9.08 K/uL (4.8-10.8) Red Blood Count 3.92 M/uL (4.2-5.4) Hemoglobin 12.0 g/dL (12.0-16.0) Hematocrit 36.8 % (37-47) Mean Corpuscular Volume 93.9 fL (80-100) Mean Corpuscular Hemoglobin 30.6 pg (25-34) Mean Corpuscular Hemoglobin Concent 32.6 g/dl (32-36) Platelet Count 347 K/uL (130-400) Mean Platelet Volume 11.0 fL (7.4-10.4) Neutrophils (%) (Auto) 54.4 % Lymphocytes (%) (Auto) 25.6 % Monocytes (%) (Auto) 11.2 % Eosinophils (%) (Auto) 8.3 % Basophils (%) (Auto) 0.2 % Neutrophils # (Auto) 4.94 K/uL (1.4-6.5) Lymphocytes # (Auto) 2.32 K/uL (1.2-3.4) Monocytes # (Auto) 1.02 K/uL (0.11-0.59) Eosinophils # (Auto) 0.75 K/uL (0-0.5) Basophils # (Auto) 0.02 K/uL (0-0.2) RDW Standard Deviation 46.0 fL (36.4-46.3) RDW Coefficient of Variation 13.4 % (11.5-14.5) Immature Granulocyte % (Auto) 0.3 % Immature Granulocyte # (Auto) 0.03 K/uL (0.00-0.02) Anion Gap 7.0 mmol/L (3-11) Est Creatinine Clear Calc Drug Dose 66.3 ml/min Estimated GFR () 92.7 Estimated GFR (Non- 80.0 BUN/Creatinine Ratio 8.8 (10-20) Calcium Level 8.7 mg/dl (8.5-10.1) Magnesium Level 1.9 mg/dl (1.8-2.4) Date/Time Source Procedure Growth Status 06/26/16 09:10 Stool C.difficile Toxin B Gene (PCR) - Final No C. difficile toxin B gene detected Complete Assessment and Plan 85 yo female admitted with cellulitis and fluid collection s/p IM nail for left hip fracture done by Dr Sherwood on May 15. Post operative surgical wound infection with Cellulitis and fluid collection ( possible abscess) - Stop Zosyn as no cultures grown and less likely anaerobe. Will Continue Vancomycin for additional 24 hours and then switch to oral amoxicillin and Bactrim. - d/w Dr Paulino - collection not for surgical drainage right now, recommend changing to PO and follow up Dr Sherwood in 1-2 weeks. - blood culture and fluid culture negative to date. Diarrhea - possibly chronic but given broad spectrum antibiotic use will test for c. diff - c.diff negative Left calf pain and swelling - US Doppler - no DVT. post operative swelling and immobility with poor venous return Obstructive Sleep Apnea - CPAP at night Hx left breast ca. - restricted left arm B12 def, depression, anemia of chronic disease - continue outpatient medications, trend Hgb VTE Prophylaxis - Heparin 5000 units Q8H SQ Code - DNR as per patient's wishes Disposition - Continue on med/surg. PT/OT pending ortho instructions on mobility. Discharge planning ordered. Reviewed: Pt Seen/Exam by Me, EMS, RN Notes, HO Notes, Prior Records, Labs, RAD , EKG History Resident Physician Supervision Note: I was present with Dr. Edouard during the history and exam. I discussed the case with the resident and agree with the findings and plan as documented in the note. Any exceptions or clarifications are listed here: patient complains of left hip pain and swelling Documented By: Joseluis Henson Constitutional: denies: chills Respiratory: negative: cough Cardiovascular: denies chest pain Genitourinary: negative discharge Musculoskeletal: positive: joint swelling (left hip), negative: back pain Neurological/Psych: negative: anxiety Hematologic/Lymphatic: negative: anemia General Appearance: WD/WN, no apparent distress Eye Exam: bilateral eye normal inspection Ears, Nose, Throat: hearing grossly normal, pharynx normal Neck: non-tender, supple Respiratory: chest non-tender, normal breath sounds Cardiovascular: normal peripheral pulses, no edema Gastrointestinal: normal bowel sounds Extremities: swelling (left hip with cellulitis) Neurologic/Psychiatric: alert, oriented x 3 Skin Characteristics: normal color, cyanosis Assessment/Plan 85 yo female admitted with cellulitis and fluid collection s/p IM nail for left hip fracture done by Dr Sherwood on May 15. 1. Left hip cellulitis with fluid collection s/p IM hip surgery Continue Vancomycin for additional 24 hours and then switch to oral amoxicillin and Bactrim. Dr Almendarez discussed with Dr Paulino, no surgical drainage right now, recommend changing to PO and follow up Dr Sherwood in 1-2 weeks. fluid culture negative to date. 2. Diarrhea, malabsorption? cdiff is negative 3. PHAM, cont CPAP 4. Hx Left breast cancer, left arm lymphedema noted 5. DVT proph with heparin sq DNR Dispo: PT/OT pending ortho instructions on mobility. Discharge planning ordered.
[2016-06-26 16:04] VITALS: BP 144/76; PULSE 73; TEMP 36.9; O2SAT 98
[2016-06-26] MEDS: OXYCODONE/ACETAMINOPHEN 5-325 TAB PO PRN (20:53)
[2016-06-26 22:52] VITALS: BP 147/67; PULSE 83; TEMP 36.2; O2SAT 90
[2016-06-27] VITALS (8 sets, daily range): BP systolic 109–167; BP diastolic 52–82; PULSE 72–79; TEMP 36.1–37.1; O2SAT 90–99
[2016-06-27] MEDS: HEPARIN SOD 5000 UNIT/0.5 ML CARP SQ SCH (05:45)
[2016-06-27 08:11] LABS: BASO % 0.3 %; BASO ABS # 0.03 K/uL (0-0.2); EOS % 5.9 %; HEMATOCRIT 37.2 % (37-47); IG% 0.2 %; LYMPH % 22.3 %; LYMPH ABS # 1.95 K/uL (1.2-3.4); MEAN CELL VOLUME 92.8 fL (80-100); MEAN CORPUSCULAR HEMOGLOBIN 30.9 pg (25-34); MEAN PLATELET VOLUME 10.6 fL (7.4-10.4); MONO % 10.1 %; NEUT % 61.2 %; PLATELET COUNT 350 K/uL (130-400); RED BLOOD COUNT 4.01 M/uL (4.2-5.4); WHITE BLOOD COUNT 8.74 K/uL (4.8-10.8)
--- NOTE | 2016-06-27 08:20 | ORTHOPEDICS PROGRESS NOTE ---
DATE: 06/27/2016 DATE: 06/27/2016. SUBJECTIVE: A 85-year-old white female 6 weeks out from IM nailing of left intertrochanteric fracture admitted with cellulitis and fluid collection around the hip area. She has got some moderate pain. She has been able to be mobilized without too much problem. OBJECTIVE: VITAL SIGNS: Temperature 36.5. Vital signs stable. PHYSICAL EXAMINATION: LEFT HIP: Reveals still residual redness around the incision site. Mild pain with hip motion. Leg lengths are equal. She is neurologically intact. LABORATORY DATA: None. ASSESSMENT: A 85-year-old white female 6 weeks out from IM nailing of a left intertrochanteric fracture with residual cellulitis and a fluid collection around the hip area. Initial aspirate revealed more serous collection in this tissue. Recent CT scan shows continued fluid in this area. PLAN: I am going to attempt to aspirate this at the bedside today. I will send it off for analysis. I did aspirate this and it looked like pretty bloody thickened fluid. Certainly thicker and more inflammatory than her initial aspirate. This is more consistent with hematoma with likely some degree of infection. We are going to send this fluid off for analysis. I do think this probably warrants washing out. We will keep her NPO for now and wait for fluid analysis to make final determination. Procedure: Left Hip was prepped with alcohol. I aspirated the left hip subcutaneous tissue for 20+ ccs of dark, cloudy fluid. Sent it off for analysis. I think we need to wash this out surgically. Will check cell count and gram stain. [facility]
[2016-06-27 08:36] LABS: BUN/CREATININE RATIO 6.8 (10-20); CALCIUM 8.8 mg/dl (8.5-10.1); CREATININE 0.59 mg/dl (0.60-1.20); POTASSIUM 3.7 mmol/L (3.5-5.1)
[2016-06-27 08:39] LABS: COMPLETE YES; MEAN CORPUSCULAR HGB CONC 33.3 g/dl (32-36)
[2016-06-27] MEDS: CALCIUM 600MG + VIT D 400 IU TAB PO SCH (08:48)
[2016-06-27] MEDS: DOCUSATE SODIUM 100 MG CAP PO SCH ×2 (08:48→20:27)
[2016-06-27] MEDS: MULTIVITAMIN TAB PO SCH (08:49)
[2016-06-27] MEDS: TRAZODONE HCL 50 MG TAB PO SCH ×2 (08:49→20:27)
[2016-06-27] MEDS: GABAPENTIN 100 MG CAP PO SCH ×2 (08:49→20:27)
[2016-06-27] MEDS: FLUOXETINE HCL 20 MG CAP PO SCH (08:49)
[2016-06-27] MEDS: ASCORBIC ACID 500 MG TAB PO SCH ×2 (08:49→20:27)
[2016-06-27] MEDS: CHOLECALCIFEROL 1000 INTER.UNIT TAB PO SCH (08:49)
[2016-06-27] MEDS: CYANOCOBALAMIN 100 MCG TAB (VIT B-12) PO SCH (08:49)
[2016-06-27 09:13] LABS: SYNOVIAL FLUID APPEARANCE TURBID; SYNOVIAL FLUID COLOR AMBER
[2016-06-27] MEDS: CLOTRIMAZOLE 1% CR 15 GM TUBE EXT SCH ×2 (09:34→20:26)
[2016-06-27] MEDS: VANCOMYCIN INJ 1,000 MG in SODIUM CHLORIDE 0.9% 250ML 250 ML IV SCH ×2 (10:09→22:19)
[2016-06-27] MEDS: SODIUM CHLORIDE 0.45% 1000ML 1,000 ML IV SCH ×2 (10:10→23:48)
--- NOTE | 2016-06-27 10:13 | Family Medicine Progress Note ---
Progress Note Date of Service Jun 27, 2016. Subjective Pt evaluation today including: conversation w/ patient, conversation w/ family (Daughter keara), physical exam, chart review, lab review, review of studies, conversation w/ foreign law consultant (Dr Daley), review of inpatient medication list Mrs Maldonado feels much the same today. She is unsure exactly what is going on and wants to have something to eat. She is orientated to year, place and person , no change from admission. Constitutional: No chills, No fever All Other Systems: Reviewed and Negative Medications Current Inpatient Medications Medications (Trade) Dose Ordered Sig/Doug Route Start Time Stop Time Status Last Admin Dose Admin Acetaminophen (Tylenol Tab) 650 mg Q4H PRN PO 06/23/16 21:30 07/23/16 21:29 Zolpidem Tartrate (Ambien Tab) 5 mg HSZ PRN PO 06/23/16 21:30 07/23/16 21:29 Ascorbic Acid (Vitamin C Tab) 1,000 mg BID PO 06/24/16 09:00 07/24/16 08:59 06/26/16 20:53 1,000 MG Bisacodyl (Dulcolax Supp) 10 mg UD PRN [place] 06/23/16 21:30 07/23/16 21:29 Cholecalciferol (Vitamin D Tab) 1,000 inter.unit DAILY PO 06/24/16 09:00 07/24/16 08:59 06/26/16 08:44 1,000 INTER.UNIT Clotrimazole (Lotrimin 1% Crm) 1 appln BID EXT 06/24/16 09:00 07/24/16 08:59 06/27/16 09:34 1 APPLN Docusate Sodium (coLACE CAP) 200 mg BID PO 06/24/16 09:00 07/24/16 08:59 06/25/16 21:00 200 MG Fluoxetine HCl (Prozac Cap) 40 mg QAM PO 06/24/16 09:00 07/24/16 08:59 06/26/16 08:44 40 MG Gabapentin (Neurontin Cap) 100 mg BID PO 06/24/16 09:00 07/24/16 08:59 06/26/16 20:55 100 MG Magnesium Hydroxide (Milk Of Magnesia Susp) 30 ml UD PRN PO 06/23/16 21:30 07/23/16 21:29 Multivitamins (Multivitamin Tab) 1 tab DAILY PO 06/24/16 09:00 07/24/16 08:59 06/26/16 08:43 1 TAB Oxycodone/ Acetaminophen (Percocet 5-325MG Tab) 1 tab Q6H PRN PO 06/23/16 21:30 07/07/16 21:29 06/26/16 20:53 1 TAB Sodium Biphosphate/ Sodium Phosphate (Fleet Enema) 133 ml UD PRN [place] 06/23/16 21:30 07/23/16 21:29 Tramadol HCl (Ultram Tab) 50 mg Q6H PRN PO 06/23/16 21:30 07/23/16 21:29 06/26/16 13:28 50 MG Trazodone HCl (Desyrel Tab) 50 mg BID PO 06/24/16 09:00 07/24/16 08:59 06/26/16 20:52 50 MG Calcium/Vitamin D (Caltrate Plus Tab) 1 tab DAILY PO 06/24/16 09:00 07/24/16 08:59 06/26/16 08:42 1 TAB Cyanocobalamin (Vitamin B-12 Tab) 1,000 mcg QAM PO 06/24/16 09:00 07/24/16 08:59 06/26/16 08:42 1,000 MCG Polyethylene (Miralax Powder Packet) 17 gm DAILY PRN PO 06/23/16 21:30 07/23/16 21:29 Ondansetron HCl (Zofran Inj) 4 mg Q6H PRN IV 06/23/16 21:30 07/23/16 21:29 Vancomycin HCl 1 ea 1 ea UD PRN N/A 06/23/16 21:40 07/23/16 21:39 Vancomycin HCl 1000 mg/Sodium Chloride 270 ml @ 125 mls/hr Q12H IV 06/24/16 10:00 07/03/16 20:59 06/27/16 10:09 125 MLS/HR Sodium Chloride (1/2 Nss 1000ml) 1,000 ml @ 75 mls/hr [id number] IV 06/27/16 10:15 07/27/16 10:14 06/27/16 10:10 75 MLS/HR Objective Vital Signs Date Time Temp Pulse Resp B/P Pulse Ox O2 Delivery O2 Flow Rate FiO2 06/27/16 07:45 Nasal Cannula 2.0 06/27/16 07:03 36.5 79 16 167/82 90 BiPAP 06/26/16 23:45 CPAP 06/26/16 22:52 36.2 83 14 147/67 90 Room Air 06/26/16 16:04 36.9 73 16 144/76 98 Room Air 06/26/16 15:40 Nasal Cannula 2.0 06/26/16 11:17 36.6 77 16 147/70 98 Room Air Physical Exam General Appearance: no apparent distress, + obese Eyes: normal inspection, PERRL Neck: supple, no JVD Respiratory/Chest: chest non-tender, lungs clear, normal breath sounds, no respiratory distress, no accessory muscle use Cardiovascular: regular rate, rhythm, no murmur Abdomen: normal bowel sounds, non tender, soft Extremities: normal capillary refill, + pedal edema (R>L + to knees) Neurologic/Psychiatric: alert, normal mood/affect, oriented x 3 (year) Laboratory Results 06/27/16 07:50 Red Blood Count 4.01, Mean Corpuscular Volume 92.8, Mean Corpuscular Hemoglobin 30.9, Mean Corpuscular Hemoglobin Concent 33.3, Mean Platelet Volume 10.6, Neutrophils (%) (Auto) 61.2, Lymphocytes (%) (Auto) 22.3, Monocytes (%) (Auto) 10.1, Eosinophils (%) (Auto) 5.9, Basophils (%) (Auto) 0.3, Neutrophils # (Auto ) 5.34, Lymphocytes # (Auto) 1.95, Monocytes # (Auto) 0.88, Eosinophils # (Auto ) 0.52, Basophils # (Auto) 0.03 06/27/16 07:50 Test 06/27/16 07:45 06/27/16 07:50 Synovial Fluid Source HIP Synovial Fluid Color ALEA Synovial Fluid Appearance TURBID Synovial Fluid WBC 78420 /uL (0-200) Synovial Fluid RBC 923689 /uL Synovial Fluid Polynuclear WBCs % 85.0 % Synovial Fluid Mononuclear WBCs % 15.0 % White Blood Count 8.74 K/uL (4.8-10.8) Red Blood Count 4.01 M/uL (4.2-5.4) Hemoglobin 12.4 g/dL (12.0-16.0) Hematocrit 37.2 % (37-47) Mean Corpuscular Volume 92.8 fL (80-100) Mean Corpuscular Hemoglobin 30.9 pg (25-34) Mean Corpuscular Hemoglobin Concent 33.3 g/dl (32-36) Platelet Count 350 K/uL (130-400) Mean Platelet Volume 10.6 fL (7.4-10.4) Neutrophils (%) (Auto) 61.2 % Lymphocytes (%) (Auto) 22.3 % Monocytes (%) (Auto) 10.1 % Eosinophils (%) (Auto) 5.9 % Basophils (%) (Auto) 0.3 % Neutrophils # (Auto) 5.34 K/uL (1.4-6.5) Lymphocytes # (Auto) 1.95 K/uL (1.2-3.4) Monocytes # (Auto) 0.88 K/uL (0.11-0.59) Eosinophils # (Auto) 0.52 K/uL (0-0.5) Basophils # (Auto) 0.03 K/uL (0-0.2) RDW Standard Deviation 45.6 fL (36.4-46.3) RDW Coefficient of Variation 13.4 % (11.5-14.5) Immature Granulocyte % (Auto) 0.2 % Immature Granulocyte # (Auto) 0.02 K/uL (0.00-0.02) Anion Gap 9.0 mmol/L (3-11) Est Creatinine Clear Calc Drug Dose 74.1 ml/min Estimated GFR () 96.2 Estimated GFR (Non- 83.0 BUN/Creatinine Ratio 6.8 (10-20) Calcium Level 8.8 mg/dl (8.5-10.1) Assessment and Plan 85 yo female admitted with cellulitis and fluid collection s/p IM nail for left hip fracture done by Dr Sherwood on May 15. Post operative surgical wound infection with Cellulitis and fluid collection ( possible abscess) - Continue vancomycin. Consider adding back gram negative coverage if worsening after I&D or depending on new fluid culture results. - d/w Dr Paulino who took out some bloody thickened fluid. Sent for analysis and will keep NPO with IVF half normal saline 75 MLS/HR for presumed I&D this afternoon. - blood culture and fluid culture negative to date. Diarrhea - possibly chronic but given broad spectrum antibiotic use will test for c. diff - c.diff negative - monitor Left calf pain and swelling - US Doppler - no DVT. post operative swelling and immobility with poor venous return Obstructive Sleep Apnea - CPAP at night Hx left breast ca. - restricted left arm B12 def, depression, anemia of chronic disease - continue outpatient medications, Hgb stable VTE Prophylaxis - Heparin 5000 units Q8H SQ. held for surgery. Restart as per ortho instruction post op. Code - DNR as per patient's wishes Disposition - Continue on med/surg. D/W daughter Keara and patient expressed previous wishes not to return to [facility] as she hates it. Resident Physician Supervision Note: I interviewed and examined the patient. Discussed with Dr. Edouard and agree with findings and plan as documented in the note. Any exceptions or clarifications are listed here: None Documented By: Nikhil Watkins feeling ok - seen preop - operative notes noted d/w dtr over the phone no new complaints vitals noted nad erythema stable side of L leg infected seroma - now s/p drainage. await cultures, continue current coverage. for maritza agustín at discharge otherwise as above
[2016-06-27] MEDS ORDERED: NURSING VERBAL MED ORDER ONE (10:15)
[2016-06-27] MEDS ORDERED: EpHEDrine SULFATE INJ 50 MG/ML AMP IV PRN (11:30)
[2016-06-27] MEDS ORDERED: ONDANSETRON INJ 2 MG/ML 2 ML VIAL IV PRN (11:30)
[2016-06-27] MEDS ORDERED: ATROPINE SULFATE 0.1 MG/ML 5ML SYR IV PRN (11:30)
[2016-06-27] MEDS ORDERED: FENTANYL CITRATE INJ 50 MCG/1 ML 2 ML VIAL ONE (12:13)
[2016-06-27] MEDS ORDERED: ONDANSETRON INJ 2 MG/ML 2 ML VIAL ONE (12:13)
[2016-06-27] MEDS ORDERED: DEXAMETHASONE SOD INJ 4 MG/ML VIAL ONE (12:13)
[2016-06-27] MEDS ORDERED: PROPOFOL IV EMULSION 10 MG/ML 20 ML VIAL IV ONE (12:13)
[2016-06-27] MEDS ORDERED: LIDOCAINE HCL 2% 2 ML VIAL (20MG/ML) ONE (12:13)
[2016-06-27] MEDS ORDERED: MIDAZOLAM HCL 1 MG/ML 2ML VIAL ONE (12:13)
--- NOTE | 2016-06-27 13:33 | History & Physical Bridge Note ---
H&P Re-Evaluation Bridge Note: I have examined the patient, reviewed the History & Physical and in the interval since the performance of the History & Physical I have noted the following changes of clinical significance: No changes noted
[2016-06-27] MEDS ORDERED: BACITRACIN 50000 UNIT VIAL IR ONE (14:15)
--- NOTE | 2016-06-27 14:39 | [facility] Post Operative Brief Note ---
Immediate Operative Summary Operative Date Jun 27, 2016. Pre-Operative Diagnosis Infective Seroma of the Left Hip Post-Operative Diagnosis Infective Seroma of the Left Hip Procedure(s) Performed Incision and drainage of Left Hip Surgeon Dr. Alexander Bhatti Tax Director Surgeon(s) Dr. Alexander Lopes PA-C Estimated Blood Loss 50 ML Findings as above Specimens Microbiology 1. Left Hip Out at 1406 Complication(s) None Disposition Recovery Room / PACU
[2016-06-27] MEDS: FENTANYL CITRATE INJ 50 MCG/1 ML 2 ML VIAL IV PRN ×4 (14:48→15:03)
--- NOTE | 2016-06-27 14:50 | OPERATIVE REPORT ---
DATE OF OPERATION: 06/27/2016 PREOPERATIVE DIAGNOSIS: Infected left hip. POSTOPERATIVE DIAGNOSIS: Infected seroma of the left hip. PROCEDURE: Irrigation and debridement of the left hip infected seroma. SURGEON: Dr. Alexander Bhatti. MAIL RIDER: Alexander Lopes PA-C, whose assistance was necessary for positioning of the leg and helping with retraction. ANESTHESIA: General. COMPLICATIONS: None. CONDITION: Stable to PACU. INDICATIONS: Homa is an 85-year-old female who underwent an intramedullary nail fixation of her left hip about 6 weeks ago. Unfortunately, she had some drainage and now some purulent discharge from the hip. A CT scan showed some collapse of the fracture site and also a large fluid collection just outside IT band. She has been on antibiotics, but it has continued to look red and inflamed. An incision was made to try an irrigation and debridement and to see how deep it goes into the hip itself. OPERATION AND FINDINGS: On 06/27/2016 she was brought down from her hospital room to the preoperative holding area and the operative extremity was identified and signed. She was then taken back to the operating room, laid on the table in supine position and put under general anesthesia. She was then put in the lateral decubitus position. The left hip was prepped and draped in sterile fashion. Time-out was done and the patient and operative extremity was properly identified. The proximal incision was once again opened up. There was some serous and purulent discharge. Cultures were taken. There was also some infected appearing tissue. It all seemed to be right in 1 single cavity just below the subcutaneous fat. The entire cavity was irrigated with 3 liters of normal saline solution with bacitracin. Time was then spent doing a debridement with a knife to make sure all infected tissue was removed. At no point did I see any tract that went down to the hip joint. I decided not to open up into the hip joint itself. Once the debridement was completed, an additional 3 liters of normal saline solution with bacitracin were irrigated throughout the cavity. Two drains were then placed and the skin was closed with 3-0 nylon suture. She was then placed in a soft dressing, extubated, transferred to a [facility] and taken to the postanesthesia care unit in stable condition. She tolerated the procedure well. I attest to the content of the Intraoperative Record and any orders documented therein. Any exceptio ns are noted below.
--- NOTE | 2016-06-27 14:52 | Anesthesiology Progress Note ---
Anesthesia Post Op Note Date & Time Jun 27, 2016 at 14:51 Vital Signs Pain Intensity: 0.0 Vital Signs Past 12 Hours Date Time Temp Pulse Resp B/P Pulse Ox O2 Delivery O2 Flow Rate FiO2 06/27/16 10:35 76 16 154/75 97 Nasal Cannula 2.0 06/27/16 07:45 Nasal Cannula 2.0 06/27/16 07:03 36.5 79 16 167/82 90 BiPAP Notes Mental Status: alert / awake / arousable, participated in evaluation Pt Amnestic to Procedure: Yes Nausea / Vomiting: adequately controlled Pain: adequately controlled Airway Patency, RR, SpO2: stable & adequate BP & HR: stable & adequate Hydration State: stable & adequate Anesthetic Complications: no major complications apparent
[2016-06-27] MEDS ORDERED: MoRPHine SULFATE 10 MG/ML CARP/VIAL ONE (15:06)
[2016-06-27] MEDS ORDERED: MoRPHine SULFATE 10 MG/ML CARP/VIAL IV PRN (15:15)
[2016-06-27] MEDS ORDERED: LABETALOL HCL IV 5 MG/ML 20ML ONE (15:29)
[2016-06-27] MEDS: OXYCODONE/ACETAMINOPHEN 5-325 TAB PO PRN (20:30)
[2016-06-27] MEDS: TRAMADOL HCL 50 MG TAB PO PRN (22:19)
[2016-06-28 03:45] VITALS: BP 130/69; PULSE 80; TEMP 37.1; O2SAT 90
[2016-06-28 06:46] VITALS: BP 114/62; PULSE 80; TEMP 36.9; O2SAT 94
[2016-06-28 08:16] LABS: HEMATOCRIT 34.3 % (37-47); MEAN CELL VOLUME 96.1 fL (80-100); MEAN CORPUSCULAR HEMOGLOBIN 31.1 pg (25-34); MEAN CORPUSCULAR HGB CONC 32.4 g/dl (32-36); PLATELET COUNT 341 K/uL (130-400); RED BLOOD COUNT 3.57 M/uL (4.2-5.4); WHITE BLOOD COUNT 9.17 K/uL (4.8-10.8)
[2016-06-28] MEDS: CLOTRIMAZOLE 1% CR 15 GM TUBE EXT SCH ×2 (08:42→21:00)
[2016-06-28] MEDS: ASCORBIC ACID 500 MG TAB PO SCH ×2 (08:42→21:00)
[2016-06-28] MEDS: CYANOCOBALAMIN 100 MCG TAB (VIT B-12) PO SCH (08:43)
[2016-06-28] MEDS: MULTIVITAMIN TAB PO SCH (08:43)
[2016-06-28] MEDS: GABAPENTIN 100 MG CAP PO SCH ×2 (08:43→20:59)
[2016-06-28] MEDS: FLUOXETINE HCL 20 MG CAP PO SCH (08:43)
[2016-06-28] MEDS: CHOLECALCIFEROL 1000 INTER.UNIT TAB PO SCH (08:43)
[2016-06-28] MEDS: DOCUSATE SODIUM 100 MG CAP PO SCH ×2 (08:44→21:00)
[2016-06-28] MEDS: CALCIUM 600MG + VIT D 400 IU TAB PO SCH (08:44)
[2016-06-28] MEDS: TRAZODONE HCL 50 MG TAB PO SCH ×2 (08:44→21:00)
[2016-06-28 08:50] LABS: CALCIUM 8.2 mg/dl (8.5-10.1); POTASSIUM 3.5 mmol/L (3.5-5.1)
--- NOTE | 2016-06-28 09:25 | PROGRESS NOTE ---
DATE: 06/28/2016 DATE: 06/28/2016. CHIEF COMPLAINT: Status post I\T\D of the left hip infected seroma postop day #1. PROGRESS: Homa was seen and examined at bedside today. She was sitting upright in a chair eating breakfast. She was not having any pain in her hip. She was unaware that she had hip surgery yesterday and she was unaware of who I was. However, she seemed pleasant, awake and alert. PHYSICAL EXAMINATION: LEFT HIP: The erythema seems to be improving from where it was yesterday. There is very minimal drainage on the dressing and the drain is still to suction. LABORATORY DATA: Her white count is 9.17 and she is afebrile and her vital signs are stable on 2 liters nasal cannula. Her intraoperative cultures did grow gram positive cocci, but the final cultures are still pending. Her MRSA screen was negative. IMPRESSION: Status post incision and drainage of infected seroma of the left hip, postop day #1. PLAN: The infection was all confined into a cavity just below the subcutaneous layer and outside of the IT band. I did not see any tracks which were going down to the hip joint itself. I did an extensive I\T\D of this cavity, but I believe it to be more of an infected seroma and I did not see evidence of any deep infection of the hip. I placed 2 drains. We will leave the drains in for a couple days. I will continue to work with the IV antibiotics. We will change the dressing tomorrow, but likely leave the drains in place until Thursday and possibly Thursday. She is currently on vancomycin and we are awaiting cultures.
[2016-06-28] MEDS ORDERED: VANCOMYCIN TROUGH SCH (09:30)
[2016-06-28] MEDS: VANCOMYCIN INJ 1,000 MG in SODIUM CHLORIDE 0.9% 250ML 250 ML IV SCH (10:30)
[2016-06-28] MEDS: TRAMADOL HCL 50 MG TAB PO PRN (10:31)
[2016-06-28 12:01] LABS: CREATININE 1.1 mg/dl (0.60-1.20)
--- NOTE | 2016-06-28 12:33 | Pharmacy Progress Note ---
Pharmacy Antibiotic Prog Note Date of Service: Jun 28, 2016. Subjective: The patient is currently receiving Vancomycin 1000 mg IV every 12 hours. The patient is currently on day # 6 of IV therapy. Objective: Height (Feet): 5 Height (Inches): 5.00 Weight (Kilograms): 86.000 Levels: Item Value Date Time Vancomycin Level Trough 18.2 mcg/ml 06/25/16 2145 Vancomycin Level Trough 28.8 mcg/ml 06/28/16 0928 Lab Results (24hrs): Laboratory Tests Test 06/28/16 06:36 BUN/Creatinine Ratio 6.0 Blood Urea Nitrogen 7 mg/dl Creatinine 1.10 mg/dl White Blood Count 9.17 K/uL Micro Results: Item Value Date Time Gram Stain - Final Resulted 06/27/16 1402 Cellulitis Hip , Left Gram Stain - Final Resulted 06/27/16 0745 Joint Fluid/Space (Synovial) Hip , Left C.difficile Toxin B Gene (PCR) - Final Complete 06/26/16 0910 Stool No C. difficile toxin B gene detected Gram Stain - Final Resulted 06/24/16 1430 Aspirate - Other Thigh , Left MRSA DNA Surveillance Screen - Final Complete 06/24/16 0046 Nasal Specimen Negative for MRSA by DNA Probe Urine Culture - Final Complete 06/24/16 0000 Urine , Clean Catch NO GROWTH - LESS THAN 1,000 COLONIES/ML Blood Culture - Preliminary Resulted 06/23/16 2035 Blood NO GROWTH TO DATE. Blood Culture - Preliminary Resulted 06/23/16 2015 Blood NO GROWTH TO DATE. Assessment & Plan: ASSESSMENT: * 85 yo F being treated with Vancomycin IV for infected seroma * Previous level was therapeutic and so a re-check was ordered for today to ensure safety/efficacy of dose * Unfortunately, patient's Scr nearly doubled overnight and her trough this AM was Supratherapeutic * I spoke with Dr. Watkins regarding level, and the fact that an additional dose has been infused since this level was reported PLAN: * HOLD further doses of Vancomycin * Re-check random drug level with AM labs 06/29/16 * Reassess culture data over the next 24 hours in hopes to de-escalate therapy * Most recent cultures showing few-moderate gram positive cocci- unsure if sensitivity will be following or not Pharmacy will continue to follow and will adjust dose/frequency as necessary. Thank you
[2016-06-28] MEDS: SODIUM CHLORIDE 0.45% 1000ML 1,000 ML IV SCH ×2 (13:09→23:31)
[2016-06-28 15:11] VITALS: BP 132/63; PULSE 73; TEMP 36.8; O2SAT 99
--- NOTE | 2016-06-28 18:53 | Progress Note ---
Subjective Date of Service: Jun 28, 2016. Subjective Pt evaluation today including: conversation w/ patient, physical exam, chart review, lab review, review of inpatient medication list leg feeling ok no f/c/s no other new complaints Problem List Medical Problems: (1) Cellulitis of left hip Status: Acute (2) Frequent falls Status: Acute (3) Hip fracture, left Status: Acute (4) Left arm cellulitis Status: Acute (5) Lymphedema of upper extremity Status: Acute (6) Postoperative wound infection Status: Acute (7) Weakness Status: Acute Review of Systems ros otherwise negative except for as above as best can be ascertained Objective Vital Signs Date Time Temp Pulse Resp B/P Pulse Ox O2 Delivery O2 Flow Rate FiO2 06/28/16 16:30 Nasal Cannula 2.0 06/28/16 15:11 36.8 73 16 132/63 99 Room Air 06/28/16 07:30 Nasal Cannula 2.0 06/28/16 06:46 36.9 80 16 114/62 94 Nasal Cannula 2.0 06/28/16 03:45 37.1 80 18 130/69 90 CPAP 06/27/16 23:40 Nasal Cannula 2.0 CPAP 06/27/16 23:15 37.1 79 18 109/52 92 CPAP 06/27/16 18:51 36.8 77 16 125/59 97 Nasal Cannula 4.0 Physical Exam General Appearance: no apparent distress Eyes: EOMI ENT: hearing grossly normal Neck: trachea midline Respiratory/Chest: no respiratory distress, no accessory muscle use Extremities: + pertinent finding (L leg erythema stable, drain without much output. 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, alert Skin: normal color, warm/dry Laboratory Results Last 24 Hours Test 06/28/16 06:36 06/28/16 09:28 White Blood Count 9.17 K/uL Red Blood Count 3.57 M/uL Hemoglobin 11.1 g/dL Hematocrit 34.3 % Mean Corpuscular Volume 96.1 fL Mean Corpuscular Hemoglobin 31.1 pg Mean Corpuscular Hemoglobin Concent 32.4 g/dl RDW Standard Deviation 48.2 fL RDW Coefficient of Variation 13.7 % Platelet Count 341 K/uL Mean Platelet Volume 11.0 fL Sodium Level 144 mmol/L Potassium Level 3.5 mmol/L Chloride Level 107 mmol/L Carbon Dioxide Level 28 mmol/L Anion Gap 9.0 mmol/L Blood Urea Nitrogen 7 mg/dl Creatinine 1.10 mg/dl Est Creatinine Clear Calc Drug Dose 39.8 ml/min Estimated GFR () 52.6 Estimated GFR (Non- 45.4 BUN/Creatinine Ratio 6.0 Random Glucose 86 mg/dl Calcium Level 8.2 mg/dl Vancomycin Level Trough 28.8 mcg/ml Assessment and Plan 85 yo female admitted with cellulitis and fluid collection s/p IM nail for left hip fracture done by Dr Sherwood on May 15. Post operative surgical wound infection with Cellulitis and fluid collection ( possible abscess) - Continue vancomycin. drainage showing gram positive cocci - hopefully by 06/29 we'll have definitive results and can alter abx further for discharge Diarrhea - - c.diff negative - monitor Left calf pain and swelling - US Doppler - no DVT. post operative swelling and immobility with poor venous return Obstructive Sleep Apnea - CPAP at night Hx left breast ca. - restricted left arm B12 def, depression, anemia of chronic disease - continue outpatient medications, Hgb stable VTE Prophylaxis - Heparin 5000 units Q8H SQ. held for surgery. Restart as per ortho instruction post op. Code - DNR as per patient's wishes Disposition - Continue on med/surg. plan for SNF at [facility] - hopefully thursday
[2016-06-28 23:00] VITALS: BP 127/67; PULSE 80; TEMP 37; O2SAT 84
[2016-06-28 23:05] VITALS: O2SAT 91
[2016-06-29 05:31] LABS: BUN/CREATININE RATIO 5.6 (10-20); CALCIUM 8.6 mg/dl (8.5-10.1); CREATININE 1.8 mg/dl (0.60-1.20); POTASSIUM 3.8 mmol/L (3.5-5.1)
[2016-06-29 07:01] VITALS: BP 121/62; PULSE 80; TEMP 36.7; O2SAT 95
[2016-06-29] MEDS: GABAPENTIN 100 MG CAP PO SCH ×2 (08:46→20:31)
[2016-06-29] MEDS: CALCIUM 600MG + VIT D 400 IU TAB PO SCH (08:46)
[2016-06-29] MEDS: CHOLECALCIFEROL 1000 INTER.UNIT TAB PO SCH (08:47)
[2016-06-29] MEDS: MULTIVITAMIN TAB PO SCH (08:47)
[2016-06-29] MEDS: FLUOXETINE HCL 20 MG CAP PO SCH (08:47)
[2016-06-29] MEDS: TRAZODONE HCL 50 MG TAB PO SCH ×2 (08:47→20:30)
[2016-06-29] MEDS: ASCORBIC ACID 500 MG TAB PO SCH ×2 (08:47→20:31)
[2016-06-29] MEDS: CYANOCOBALAMIN 100 MCG TAB (VIT B-12) PO SCH (08:47)
[2016-06-29] MEDS: DOCUSATE SODIUM 100 MG CAP PO SCH ×2 (08:48→20:30)
[2016-06-29] MEDS: CLOTRIMAZOLE 1% CR 15 GM TUBE EXT SCH ×2 (08:48→20:30)
--- NOTE | 2016-06-29 10:32 | PROGRESS NOTE ---
DATE: 06/29/2016 CHIEF COMPLAINT: Status post incision and drainage of left hip infected seroma, postoperative day #2. PROGRESS: Homa was seen and examined at bedside today. She was sitting up in a chair. Her pain is relatively well controlled. She is not participating well with physical therapy, but she does not complain of much pain when I see her today. She says she has had no acute events yesterday. PHYSICAL EXAMINATION: LEFT HIP: There is still some cellulitis in the area. It looks about the same as yesterday. It is certainly not expanding. The dressing is clean and dry and the drain is still to suction. LABORATORIES: Do show a creatinine of 1.8. Her H\T\H is stable. Cultures obtained from the left hip so far have shown no growth, but we are hoping for final cultures and sensitivities later today or tomorrow. IMPRESSION: Infected seroma and cellulitis of the left hip. PLAN: At this point, she is doing about as well as expected. She is still on vancomycin until we get final cultures and sensitivities. They likely will not be back until tomorrow or Thursday. I am going to leave the drain in for another day. Likely tomorrow, we will pull the drain and change the dressing. Once cultures and sensitivities return, she will likely be stable for discharge with oral or IV antibiotics.
[2016-06-29] MEDS: TRAMADOL HCL 50 MG TAB PO PRN (14:40)
[2016-06-29] MEDS: SODIUM CHLORIDE 0.45% 1000ML 1,000 ML IV SCH (14:43)
[2016-06-29 15:02] VITALS: BP 147/86; PULSE 83; TEMP 36.7; O2SAT 97
[2016-06-29 16:00] VITALS: O2SAT 97
[2016-06-29] MEDS ORDERED: SODIUM CHLORIDE 0.9% 1000ML 1,000 ML IV SCH (19:30)
--- NOTE | 2016-06-29 19:31 | Progress Note ---
Subjective Date of Service: Jun 29, 2016. Subjective Pt evaluation today including: conversation w/ patient, physical exam, chart review, lab review, review of studies, review of inpatient medication list Pain: left hip PO Intake: normal No issues overnight Reports pain in left hip area otherwise no complaints Confirms that she is on chronic oxygen outside the hospital Problem List Medical Problems: (1) Cellulitis of left hip Status: Acute (2) Frequent falls Status: Acute (3) Hip fracture, left Status: Acute (4) Left arm cellulitis Status: Acute (5) Lymphedema of upper extremity Status: Acute (6) Postoperative wound infection Status: Acute (7) Weakness Status: Acute Review of Systems Constitutional: No chills, No fever Respiratory: No shortness of breath Cardiac: No chest pain Abdomen: No pain Objective Vital Signs Date Time Temp Pulse Resp B/P Pulse Ox O2 Delivery O2 Flow Rate FiO2 06/29/16 16:00 97 Nasal Cannula 2.0 06/29/16 15:02 36.7 83 18 147/86 97 Nasal Cannula 2.0 06/29/16 07:30 Nasal Cannula 2.0 06/29/16 07:01 36.7 80 15 121/62 95 CPAP 06/28/16 23:25 CPAP 4.0 06/28/16 23:05 91 CPAP 4.0 06/28/16 23:00 37.0 80 18 127/67 84 CPAP 2.0 Physical Exam General Appearance: no apparent distress ENT: pharynx normal Neck: no JVD Respiratory/Chest: lungs clear, no respiratory distress, no accessory muscle use Cardiovascular: regular rate, rhythm, no gallop, no murmur Abdomen: normal bowel sounds, non tender, soft, no organomegaly Extremities: no pedal edema Neurologic/Psychiatric: alert, + disoriented (mild) Skin: + pertinent finding (drains in place, left hip; ecchymoses present left hip as well ) Comments: lymphedema left arm Laboratory Results Last 24 Hours Test 06/29/16 04:50 Sodium Level 145 mmol/L Potassium Level 3.8 mmol/L Chloride Level 108 mmol/L Carbon Dioxide Level 30 mmol/L Anion Gap 7.0 mmol/L Blood Urea Nitrogen 10 mg/dl Creatinine 1.80 mg/dl Est Creatinine Clear Calc Drug Dose 24.3 ml/min Estimated GFR () 29.0 Estimated GFR (Non- 25.0 BUN/Creatinine Ratio 5.6 Random Glucose 111 mg/dl Calcium Level 8.6 mg/dl Chemistry Specimen Hemolysis Random Vancomycin Level 30.3 mcg/ml Assessment and Plan 85yo female with: 1. left hip post-op infected seroma with cellulitis - clinically improving. Intra-op cultures with coag negative staph. Continues on vancomycin. Will ask ID to see tomorrow; may need prolonged course of IV antibiotics. Watch vanco levels in setting of the rising creatinine. Consider changing to daptomycin. Appreciate ortho consultation & recommendations. 2. acute kidney injury - 2nd to vancomycin? ATN? Other? Continue fluids. Repeat BMP in am. Avoid nephrotoxic agents. 3. chronic resp failure - uncertain why she has chronic o2 requirement; most recent echo without pulmonary HTN, etc. Continue NC O2. 4. DVT proph - resume heparin BID cautiously. 5. PHAM - continue HS CPAP. 6. h/o left sided breast cancer - noted; with resulting lymphedema. 7. chronic b12 def - cont b12 supplementation. 8. FEN - change fluids to NS from 1/2 NS; repeat BMP in am. 9. [facility] PT, OT consultations appreciated Continued [facility] stay due to: ambulation difficulties, multiple IV medications needed Discharge planning: assisted facility
[2016-06-29] MEDS: HEPARIN SOD 5000 UNIT/0.5 ML CARP SQ SCH (20:36)
[2016-06-29 22:50] VITALS: BP 116/48; PULSE 79; TEMP 36.2; O2SAT 92
[2016-06-30 05:20] LABS: BUN/CREATININE RATIO 5.7 (10-20); CALCIUM 8.1 mg/dl (8.5-10.1); POTASSIUM 3.5 mmol/L (3.5-5.1)
[2016-06-30 06:50] VITALS: BP 125/70; PULSE 81; TEMP 36.5; O2SAT 97
[2016-06-30] MEDS: CALCIUM 600MG + VIT D 400 IU TAB PO SCH (08:50)
[2016-06-30] MEDS: DOCUSATE SODIUM 100 MG CAP PO SCH ×2 (08:50→20:51)
[2016-06-30] MEDS: MULTIVITAMIN TAB PO SCH (08:51)
[2016-06-30] MEDS: CLOTRIMAZOLE 1% CR 15 GM TUBE EXT SCH ×2 (08:54→20:53)
[2016-06-30] MEDS: GABAPENTIN 100 MG CAP PO SCH ×2 (08:56→20:52)
[2016-06-30] MEDS: TRAZODONE HCL 50 MG TAB PO SCH ×2 (08:56→20:52)
[2016-06-30] MEDS: ASCORBIC ACID 500 MG TAB PO SCH ×2 (08:57→20:53)
[2016-06-30] MEDS: FLUOXETINE HCL 20 MG CAP PO SCH (08:57)
[2016-06-30] MEDS: CYANOCOBALAMIN 500 MCG TAB (VIT B-12) PO SCH (08:57)
[2016-06-30] MEDS: CHOLECALCIFEROL 1000 INTER.UNIT TAB PO SCH (08:58)
[2016-06-30] MEDS: HEPARIN SOD 5000 UNIT/0.5 ML CARP SQ SCH ×2 (09:06→21:07)
[2016-06-30] MEDS: D5W AND 1/2NSS + 20MEQ KCL 1,000 ML IV SCH ×2 (09:40→20:50)
[2016-06-30] MEDS ORDERED: DAPTOMYCIN CONSULT ACTIVE PRN ×2 (11:00)
--- NOTE | 2016-06-30 11:06 | DIAGNOSTIC IMAGING REPORT ---
CHEST ONE VIEW PORTABLE CLINICAL HISTORY: Pulmonary edema COMPARISON STUDY: 06/23/2016 FINDINGS: The heart remains enlarged. There is mild elevation right hemidiaphragm. There is stable interstitial thickening. There are bibasal atelectatic changes. Surgical clips project over the left axilla. There is persistent blunting of the right lateral costophrenic angle[ IMPRESSION: No significant change from the preceding study given the differences in technique. Persistent interstitial thickening. Stable blunting of the right lateral costophrenic angle. Stable bibasal atelectasis. Electronically signed by: Forest Perkins M.D. 06/30/2016 11:04 AM
--- NOTE | 2016-06-30 11:09 | Medical Consult ---
Consultation Date of Consultation: Jun 30, 2016. Attending Physician: Eliezer Rojo MD Reason for Consultation: Infected left hip seroma History of Present Illness Patient is an 85 yo female who presented to the ED with concerns of worsening left hip pain, swelling, and erythema. The patient has history of left hip fracture nailing in the middle of April. She states that she initially fell out of bed which is how she fractured her hip. She states that she thinks she had done well following surgery other than that she did not like it at [facility]. She states that she has "short term memory". Since current admisison , the patient had CT scans of the left lower extremity which showed a large subcutaneous fluid collection under the left prior surgical site. She is now s/ p I & D of septic seroma in that area. Culture from surgery is growing coag- negative staph with sensitivities pending. She is currently on IV Vancomycin. Her WBC count today is 9.17, and her creatinine increased to 2.00 from 0.56 on admission. I spoke to Dr. East regarding this patient's case as well. Past Medical/Surgical History Medical Problems: (1) Cellulitis of left hip Status: Acute (2) Frequent falls Status: Acute (3) Hip fracture, left Status: Acute (4) Left arm cellulitis Status: Acute (5) Lymphedema of upper extremity Status: Acute (6) Postoperative wound infection Status: Acute (7) Weakness Status: Acute Medical Problems: (1) Anxiety (2) Carcinoma of breast (3) Carcinoma of colon (4) Chest pain (5) Depression (6) History of chronic diarrhea (7) Lumbar spinal stenosis (8) Lymphedema (9) Neuropathy (10) Osteoporosis (11) Pernicious anemia (12) Sleep apnea Surgical Problems: (1) H/O partial mastectomy (2) History of appendectomy (3) History of cholecystectomy (4) History of partial colectomy Family History Cancer Diabetes mellitus Noncontributory Social History Smoking Status: Never Smoker Smokeless Tobacco Use: No Alcohol Use: none Drug Use: none Marital Status: Housing Status: lives alone Occupation Status: retired Allergies Coded Allergies: No Known Allergies (Unverified , 04/11/16) PT DENIES PREVIOUSLY PROFILED SULFA ALLERGY? Home Medications Reported Home Medications Medications Dose Route/Sig Max Daily Dose Days Date Category Dose Instructions Dulcolax (Bisacodyl) 10 Mg Sup 1 Supp UT UD PRN 06/23/16 Reported NEEDED FOR NO BOWEL MOVEMENT FOR 4 DAYS Tylenol (Acetaminophen) 325 Mg Tab 650 Mg PO Q6H PRN 06/23/16 Reported NEEDED FOR PAIN RATED 1-4 ON A SCALE OF "0-10" OR FOR ELEVATED TEMPERATURE GREATER THAN 101 F. DO NOT EXCEED 3 GM APAP/24 HOURS. Clotrimazole Anti-Fungal (Clotrimazole (Topical)) 1 % Cre 1 Appln TOP BID 06/23/16 Reported APPLY TO ABDOMINAL FOLDS AND INNER THIGHS Fleet Enema (Sodium Phosphate/Biphosphate) Alayna 1 Ea UT UD PRN 06/23/16 Reported IF AFTER 4 HOURS DULCOLAX SUPPOSITORY WAS INEFFECTIVE GIVE FLEET ENEMA Miralax (Polyethylene Glycol 3350) 1 Pow Pow 17 Gm PO DAILY PRN 06/23/16 Reported Milk Of Magnesia (Magnesium Hydroxide) 30 Ml Susp 30 Ml PO UD PRN 06/23/16 Reported NEEDED FOR NO BOWEL MOVEMENT FOR 9 SHIFTS Percocet 5MG/325MG (Oxycodone/Acetaminophen) Tab 1 Tablet PO Q6H PRN 06/23/16 Reported NEEDED FOR PAIN RATED 7-10 ON A SCALE OF "0-10" Ultram (Tramadol HCl) 50 Mg Tab 50 Mg PO Q6H PRN 06/23/16 Reported NEEDED FOR PAIN RATED 4-6 ON A SCALE OF "0-10" [Juice Supplement] 1 Dose PO BID 06/23/16 Reported Colace (Docusate Sodium) 100 Mg Cap 200 Mg PO BID 06/23/16 Reported Vitamin D3 (Cholecalciferol) 1,000 Unit Tab 1,000 Inter.unit PO DAILY 06/23/16 Reported Lidoderm Patch 5% (Lidocaine) 1 Ea Tdsy 2 Patch TOP ONAMOFFPM 06/23/16 Reported APPLY TO LEFT HIP EVERY MORNING AND REMOVE IN THE EVENING Ascorbic Acid 500 Mg Tab 1,000 Mg PO BID 06/23/16 Reported Vitamin B12 (Cyanocobalamin) 1,000 Mcg Tab 1,000 Mcg PO DAILY 05/14/16 Reported Gabapentin 100 Mg Cap 100 Mg PO BID 05/14/16 Reported Mobic (Meloxicam) 15 Mg Tab 15 Mg PO DAILY 05/14/16 Reported Trazodone (Trazodone HCl) 50 Mg Tab 50 Mg PO BID 05/14/16 Reported Oscal 500/200 D-3 (Calcium Carbonate-Vitamin D) 1 Tab Tab 1 Tab PO DAILY 11/07/14 Reported Prozac (Fluoxetine HCl) 40 Mg Cap 40 Mg PO QAM 11/07/14 Reported Multivitamin (Multiple Vitamin) 1 Tab Tab 1 Tab PO DAILY 12/05/12 Reported Oxygen Gas 2 Liters NA HS 12/05/12 Reported USE WITH CPAP HS and PRN SOB Current Inpatient Medications Current Inpatient Medications Medications (Trade) Dose Ordered Sig/Doug Route Start Time Stop Time Status Last Admin Dose Admin Acetaminophen (Tylenol Tab) 650 mg Q4H PRN PO 06/23/16 21:30 07/23/16 21:29 Zolpidem Tartrate (Ambien Tab) 5 mg HSZ PRN PO 06/23/16 21:30 07/23/16 21:29 Ascorbic Acid (Vitamin C Tab) 1,000 mg BID PO 06/24/16 09:00 07/24/16 08:59 06/30/16 08:57 1,000 MG Bisacodyl (Dulcolax Supp) 10 mg UD PRN UT 06/23/16 21:30 07/23/16 21:29 Cholecalciferol (Vitamin D Tab) 1,000 inter.unit DAILY PO 06/24/16 09:00 07/24/16 08:59 06/30/16 08:58 1,000 INTER.UNIT Clotrimazole (Lotrimin 1% Crm) 1 appln BID EXT 06/24/16 09:00 07/24/16 08:59 06/30/16 08:54 1 APPLN Docusate Sodium (coLACE CAP) 200 mg BID PO 06/24/16 09:00 07/24/16 08:59 06/30/16 08:50 200 MG Fluoxetine HCl (Prozac Cap) 40 mg QAM PO 06/24/16 09:00 07/24/16 08:59 06/30/16 08:57 40 MG Gabapentin (Neurontin Cap) 100 mg BID PO 06/24/16 09:00 07/24/16 08:59 06/30/16 08:56 100 MG Magnesium Hydroxide (Milk Of Magnesia Susp) 30 ml UD PRN PO 06/23/16 21:30 07/23/16 21:29 Multivitamins (Multivitamin Tab) 1 tab DAILY PO 06/24/16 09:00 07/24/16 08:59 06/30/16 08:51 1 TAB Oxycodone/ Acetaminophen (Percocet 5-325MG Tab) 1 tab Q6H PRN PO 06/23/16 21:30 07/07/16 21:29 06/27/16 20:30 1 TAB Sodium Biphosphate/ Sodium Phosphate (Fleet Enema) 133 ml UD PRN UT 06/23/16 21:30 07/23/16 21:29 Tramadol HCl (Ultram Tab) 50 mg Q6H PRN PO 06/23/16 21:30 07/23/16 21:29 06/29/16 14:40 50 MG Trazodone HCl (Desyrel Tab) 50 mg BID PO 06/24/16 09:00 07/24/16 08:59 06/30/16 08:56 50 MG Calcium/Vitamin D (Caltrate Plus Tab) 1 tab DAILY PO 06/24/16 09:00 07/24/16 08:59 06/30/16 08:50 1 TAB Polyethylene (Miralax Powder Packet) 17 gm DAILY PRN PO 06/23/16 21:30 07/23/16 21:29 Ondansetron HCl (Zofran Inj) 4 mg Q6H PRN IV 06/23/16 21:30 07/23/16 21:29 Cyanocobalamin (Vitamin B-12 Tab) 1,000 mcg QAM PO 06/30/16 09:00 07/30/16 08:59 06/30/16 08:57 1,000 MCG Heparin Sodium (Porcine) 5000 unit 5,000 unit Q12 SQ 06/29/16 21:00 07/29/16 20:59 06/30/16 09:06 5,000 UNIT Potassium Chloride/Dextrose/ Sod Cl 1,000 ml @ 100 mls/hr Q10H IV 06/30/16 09:00 07/30/16 08:44 06/30/16 09:40 100 MLS/HR Daptomycin/Sodium Chloride (Cubicin IV/Nss 50ml) 58 ml @ 100 mls/hr DAILY IV 07/01/16 09:00 07/31/16 08:59 UNV Daptomycin (Consult) 1 ea UD PRN N/A 06/30/16 11:00 07/30/16 10:59 Review of Systems Constitutional: + fever (FLEXO OPERATOR), No chills, No sweats Eyes: No worsening of vision ENT: No hearing loss Respiratory: No cough, No shortness of breath Cardiovascular: No chest pain Abdomen: No diarrhea, No nausea, No pain Musculoskeletal: + joint pain (left hip) Genitourinary - Female: No dysuria Neurologic: + problem reported (states that she has "short term memory") Integumentary: + color change, + new/changing skin lesions (left hip incision) , No itch, No rash Physical Exam Date Time Temp Pulse Resp B/P Pulse Ox O2 Delivery O2 Flow Rate FiO2 06/30/16 07:30 Nasal Cannula 2.0 06/30/16 06:50 36.5 81 17 125/70 97 Nasal Cannula 2.0 06/29/16 23:30 BiPAP 2.0 06/29/16 22:50 36.2 79 16 116/48 92 BiPAP 06/29/16 16:00 97 Nasal Cannula 2.0 06/29/16 15:02 36.7 83 18 147/86 97 Nasal Cannula 2.0 General Appearance: no apparent distress, + obese Head: normocephalic, atraumatic Eyes: normal inspection, sclerae normal ENT: hearing grossly normal Neck: supple, trachea midline Respiratory/Chest: chest non-tender, lungs clear, no respiratory distress, no accessory muscle use Cardiovascular: regular rate, rhythm Abdomen/GI: normal bowel sounds, non tender, soft Extremities/Musculoskelatal: + pertinent finding (left hip with dressing and surgical drain in place. Note cloudy/bloody fluid in the drain. Mild edema of the left hip.) Skin: warm/dry, no rash, + pertinent finding (Mild erythema of the distal portion of he left hip incision) Laboratory Results LEFT HIP CT CT DOSE: 854.38 mGy.cm HISTORY: reassess fluid collection s/p aspiration L hip TECHNIQUE: Multiaxial CT images of the left hip were performed and reformatted in the sagittal and coronal plane without the use of contrast. COMPARISON: Left hip CT 06/23/2016. FINDINGS: Patient is status post internal fixation of a left proximal left femoral fracture with intramedullary klaus and interlocking pin. The fracture remains impacted. The alignment is unchanged. The visualized pelvic bones are intact. Trace pelvic free fluid. Colonic diverticulosis. Left lateral hip/thigh skin thickening and subcutaneous fat stranding/edema is again noted. The subcutaneous fluid collection at the incision site has slightly decreased in size. This currently measures 9 x 4.9 x 2.2 cm. This previously measured 10 x 4.8 x 3.4 cm. There is also a second smaller focus of fluid at the lateral mid thigh subcutaneous fat. This remains unchanged. IMPRESSION: 1. Slight decrease in size in the nonspecific 9.0 x 4.9 x 2.2 cm subcutaneous fluid collection at the incision site within the left lateral hip/thigh. This could represent a postoperative seroma, hematoma, or abscess. 2. Postoperative changes consistent with internal fixation of a left hip fracture. The alignment remains unchanged. RUN DATE: 06/30/16 [facility] LAB PAGE 1 RUN TIME: 802 Specimen Inquiry PATIENT: MIKI FORBES LOC: KEV U # : [id number] AGE/SX: 85/F ROOM: [facility] REG : 06/23/[address]: Eliezer Rojo MD : [id number] BED: 1 DIS : STATUS: ADM IN TLOC: SPEC #: [id number] SHI: 06/27/16 STATUS: RES REQ #: [id number] RECD: 06/27/16 [facility] DR: Manny Paulino M.D. SOURCE: JOINT FLSP ENTR: 06/27/16 [facility] DR: [facility] SPDESC: Katty LISA Jonathan, MD Pasquariello, Rick D M.D. Ridenour, Ryan, D.O. Sefter, Atif Middleton, DO ORDERED: LIDIA FL/SP CU/SM Procedure Result Verified Site GRAM STAIN Final 06/27/16 RESULT MANY WBCs SEEN FEW GRAM POSITIVE COCCI JOINT FLUID/SPACE CULTURE Preliminary 06/30/16 Organism 1 COAG NEG STAPHYLOCOCCUS QUANITY RARE SENS SENSITIVITY TO FOLLOW Item Value Date Time Gram Stain - Final Resulted 06/27/16 1402 Cellulitis Hip , Left Gram Stain - Final Resulted 06/27/16 0745 Joint Fluid/Space (Synovial) Hip , Left C.difficile Toxin B Gene (PCR) - Final Complete 06/26/16 0910 Stool No C. difficile toxin B gene detected Gram Stain - Final Complete 06/24/16 1430 Aspirate - Other Thigh , Left MRSA DNA Surveillance Screen - Final Complete 06/24/16 0046 Nasal Specimen Negative for MRSA by DNA Probe Urine Culture - Final Complete 06/24/16 0000 Urine , Clean Catch NO GROWTH - LESS THAN 1,000 COLONIES/ML Blood Culture - Final Complete 06/23/16 2035 Blood NO GROWTH Blood Culture - Final Complete 06/23/162014 Blood NO GROWTH Last 24 Hours Test 06/30/16 04:35 Sodium Level 147 mmol/L Potassium Level 3.5 mmol/L Chloride Level 111 mmol/L Carbon Dioxide Level 29 mmol/L Anion Gap 7.0 mmol/L Blood Urea Nitrogen 11 mg/dl Creatinine 2.00 mg/dl Est Creatinine Clear Calc Drug Dose 21.9 ml/min Estimated GFR () 25.6 Estimated GFR (Non- 22.0 BUN/Creatinine Ratio 5.7 Random Glucose 88 mg/dl Calcium Level 8.1 mg/dl Random Vancomycin Level 22.1 mcg/ml Assessment & Plan Patient with left septic post-operative seroma with coag-negative staph. She is currently on IV Vancomycin but has had an increase in her creatinine. Will change to IV Daptomycin pending sensitivities of culture. Feel that this patient may require about 2 weeks of IV antibiotic therapy with reevaluation prior to discontinuation. She is anticipating D/C to a SNF, therefore will need to change from Daptomycin once sensitivities are available, but we will follow and adjust as able. Plan: 1. D/C Vancomycin 2. Continue on IV Daptomycin pending culture PROVIDER ADDENDUM: Patient examined and reviewed with Ms. Elmore. Agree with above assessment.
--- NOTE | 2016-06-30 13:22 | Anesthesiology Progress Note ---
Anesthesia Post Op Note Date & Time Jun 30, 2016 at 13:22 Vital Signs Pain Intensity: 0.0 Vital Signs Past 12 Hours Date Time Temp Pulse Resp B/P Pulse Ox O2 Delivery O2 Flow Rate FiO2 06/30/16 07:30 Nasal Cannula 2.0 06/30/16 06:50 36.5 81 17 125/70 97 Nasal Cannula 2.0 Notes Mental Status: alert / awake / arousable, participated in evaluation
--- NOTE | 2016-06-30 13:43 | ORTHOPEDIC PROGRESS NOTE ---
DATE: 06/30/2016 CHIEF COMPLAINT: She is status post incision and drainage of her left hip infected seroma, postop day #3. HISTORY OF PRESENT ILLNESS: Homa was seen and examined by me at the bedside today. She was lying in bed comfortably. Her pain was pretty well controlled. She does complain of little bit of incisional pain but not too much. She denies any fevers, chills or night sweats. Denies any flu-like symptoms. PHYSICAL EXAMINATION: EXTREMITIES: Left hip, there is some mild cellulitis surrounding the incision of the area. The dressing is clean, dry, well healed. She does have a little serosanguineous drainage from the Hemovac drain. No acute pain with any palpation over the incision site. VITAL SIGNS: Today, temperature is 36.5, taken orally. Her pulse is 81, respiratory rate is 17, blood pressure is 125/70, pulse ox is 97 with nasal cannula 2 liters an hour. LABORATORY DATA: Most recent hemoglobin is 11.1, hematocrit is 34.4. This was as of 06/28/2016. We did review her cultures that were taken on Thursday intraoperatively. The bacterial culture did show some moderate gram-positive cocci. This is preliminary. The synovial joint fluid analysis from the left hip came back negative for any staphylococcus. ASSESSMENT AND DIAGNOSIS: Postoperative day 3, incision and drainage of left hip. PLAN: At this point, we are going to pull her drain. She is putting out approximately 20-25 mL of serosanguineous fluid. We will also get a dressing change for her at this point. Continue with pain control management. We do recommend that she can be discharged to an extended care facility that she is planning on going to. Recommend that she be considered for either p.o. or IV antibiotics per infectious disease consult. We will follow her back up in our office in approximately 10 days for suture removal.
[2016-06-30 15:36] VITALS: BP 155/75; PULSE 84; TEMP 36.7; O2SAT 99
[2016-06-30 16:30] VITALS: O2SAT 99
--- NOTE | 2016-06-30 17:58 | Progress Note ---
Subjective Date of Service: Jun 30, 2016. Subjective Pt evaluation today including: conversation w/ patient, physical exam, chart review, lab review, review of studies (cxr), conversation w/ research consultant (ID) Pain: left hip only PO Intake: normal no issues overnight feels "good" with exception of mild left hip pain no issues per staff Problem List Medical Problems: (1) Cellulitis of left hip Status: Acute (2) Frequent falls Status: Acute (3) Hip fracture, left Status: Acute (4) Left arm cellulitis Status: Acute (5) Lymphedema of upper extremity Status: Acute (6) Postoperative wound infection Status: Acute (7) Weakness Status: Acute Review of Systems Constitutional: No fever Respiratory: No cough, No shortness of breath Cardiac: No chest pain Abdomen: No pain Objective Vital Signs Date Time Temp Pulse Resp B/P Pulse Ox O2 Delivery O2 Flow Rate FiO2 06/30/16 15:36 36.7 84 18 155/75 99 Nasal Cannula 2.0 06/30/16 07:30 Nasal Cannula 2.0 06/30/16 06:50 36.5 81 17 125/70 97 Nasal Cannula 2.0 06/29/16 23:30 BiPAP 2.0 06/29/16 22:50 36.2 79 16 116/48 92 BiPAP Physical Exam General Appearance: no apparent distress ENT: pharynx normal Neck: no JVD Respiratory/Chest: no respiratory distress, no accessory muscle use, + crackles (bases) Cardiovascular: regular rate, rhythm, no gallop, no murmur Abdomen: normal bowel sounds, non tender, soft, no organomegaly Extremities: no pedal edema Neurologic/Psychiatric: alert Skin: + pertinent finding (left lateral hip with significant edema/swelling & mild ecchymoses; drain still in place; dressing in place) Laboratory Results Last 24 Hours Test 06/30/16 04:35 Sodium Level 147 mmol/L Potassium Level 3.5 mmol/L Chloride Level 111 mmol/L Carbon Dioxide Level 29 mmol/L Anion Gap 7.0 mmol/L Blood Urea Nitrogen 11 mg/dl Creatinine 2.00 mg/dl Est Creatinine Clear Calc Drug Dose 21.9 ml/min Estimated GFR () 25.6 Estimated GFR (Non- 22.0 BUN/Creatinine Ratio 5.7 Random Glucose 88 mg/dl Calcium Level 8.1 mg/dl Random Vancomycin Level 22.1 mcg/ml Assessment and Plan 85yo female with: 1. left hip post-op infected seroma with cellulitis - clinically improving. Intra-op cultures with coag negative staph. Sensitivities pending. Continues on vancomycin. ID consult appreciated; to change to daptomycin due to BRYN. Will need about 2 weeks of IV therapy at minimum. Appreciate ortho consultation & recommendations. 2. acute kidney injury - 2nd to vancomycin? ATN? Other? Continue fluids. Repeat BMP in am. Avoid nephrotoxic agents. Creatinine not significantly changed today. 3. chronic resp failure - uncertain why she has chronic o2 requirement; most recent echo without pulmonary HTN, etc. Continue NC O2. Likely some form of chronic lung disease - ILD?? 4. DVT proph - resumed heparin BID cautiously on 06/29/16. 5. PHAM - continue HS CPAP. 6. h/o left sided breast cancer - noted; with resulting lymphedema. 7. chronic b12 def - cont b12 supplementation. 8. FEN - cont fluids; lytes stable; eating ok. 9. dispo - [facility] 10. crackles on exam - cxr obtained showing atelectasis only; no pulmonary edema. incentive spirometry PT, OT consultations appreciated Continued [facility] stay due to: ambulation difficulties, multiple IV medications needed [facility]charge planning: [facility] facility
[2016-06-30] MEDS ORDERED: DAPTOmycin IV 350 MG in SODIUM CHLORIDE 0.9% 50ML 50 ML IV SCH (18:00)
[2016-06-30] MEDS: OXYCODONE/ACETAMINOPHEN 5-325 TAB PO PRN (20:49)
[2016-06-30 22:50] VITALS: BP 119/65; PULSE 85; TEMP 37.2; O2SAT 90
[2016-07-01] MEDS: D5W AND 1/2NSS + 20MEQ KCL 1,000 ML IV SCH (05:19)
[2016-07-01 06:52] VITALS: BP 148/74; PULSE 82; TEMP 36.7; O2SAT 100
[2016-07-01 07:45] LABS: HEMATOCRIT 35.6 % (37-47); MEAN CELL VOLUME 94.4 fL (80-100); MEAN CORPUSCULAR HGB CONC 32.9 g/dl (32-36); MEAN PLATELET VOLUME 11.5 fL (7.4-10.4); PLATELET COUNT 305 K/uL (130-400); RED BLOOD COUNT 3.77 M/uL (4.2-5.4); WHITE BLOOD COUNT 12.07 K/uL (4.8-10.8)
[2016-07-01 07:50] LABS: BUN/CREATININE RATIO 6.1 (10-20); CALCIUM 8.6 mg/dl (8.5-10.1); CREATININE 2.1 mg/dl (0.60-1.20); POTASSIUM 3.9 mmol/L (3.5-5.1)
[2016-07-01] MEDS: CLOTRIMAZOLE 1% CR 15 GM TUBE EXT SCH ×2 (09:11→20:42)
[2016-07-01] MEDS: CYANOCOBALAMIN 500 MCG TAB (VIT B-12) PO SCH (09:11)
[2016-07-01] MEDS: DOCUSATE SODIUM 100 MG CAP PO SCH ×2 (09:12→20:41)
[2016-07-01] MEDS: ASCORBIC ACID 500 MG TAB PO SCH ×2 (09:12→20:41)
[2016-07-01] MEDS: GABAPENTIN 100 MG CAP PO SCH ×2 (09:12→20:41)
[2016-07-01] MEDS: TRAZODONE HCL 50 MG TAB PO SCH ×2 (09:13→20:41)
[2016-07-01] MEDS: CHOLECALCIFEROL 1000 INTER.UNIT TAB PO SCH (09:13)
[2016-07-01] MEDS: FLUOXETINE HCL 20 MG CAP PO SCH (09:13)
[2016-07-01] MEDS: MULTIVITAMIN TAB PO SCH (09:13)
[2016-07-01] MEDS: CALCIUM 600MG + VIT D 400 IU TAB PO SCH (09:14)
[2016-07-01] MEDS: HEPARIN SOD 5000 UNIT/0.5 ML CARP SQ SCH ×2 (09:24→20:48)
[2016-07-01] MEDS ORDERED: D5W AND 1/4NSS + 20MEQ KCL 1,000 ML IV SCH (09:30)
--- NOTE | 2016-07-01 11:10 | Infectious Disease Progress Nt ---
Progress Note Date of Service Jul 01, 2016. Subjective Pt evaluation today including: conversation w/ patient, physical exam, chart review, lab review, review of studies, conversation w/ medical economics consultant (Dr. East- regarding crackles in lung and continued treatment), review of inpatient medication list WBC count increased slightly to 12.07 today. She states that her left hip pain if slightly improved however she is having some increased SOB today. She denies coughing or chest pain but is having trouble breathing at rest. Creatinine was 2.10 today. She is on Daptomycin. Her culture is growing Coag-Negative staph with resistance to Oxacillin and Bactrim. Vancomycin LAURA is 4. All Other Systems: Reviewed and Negative Medications Current Inpatient Medications Medications (Trade) Dose Ordered Sig/Doug Route Start Time Stop Time Status Last Admin Dose Admin Acetaminophen (Tylenol Tab) 650 mg Q4H PRN PO 06/23/16 21:30 07/23/16 21:29 Ascorbic Acid (Vitamin C Tab) 1,000 mg BID PO 06/24/16 09:00 07/24/16 08:59 07/01/16 09:12 1,000 MG Bisacodyl (Dulcolax Supp) 10 mg UD PRN AL 06/23/16 21:30 07/23/16 21:29 Cholecalciferol (Vitamin D Tab) 1,000 inter.unit DAILY PO 06/24/16 09:00 07/24/16 08:59 07/01/16 09:13 1,000 INTER.UNIT Clotrimazole (Lotrimin 1% Crm) 1 appln BID EXT 06/24/16 09:00 07/24/16 08:59 07/01/16 09:11 1 APPLN Docusate Sodium (coLACE CAP) 200 mg BID PO 06/24/16 09:00 07/24/16 08:59 07/01/16 09:12 200 MG Fluoxetine HCl (Prozac Cap) 40 mg QAM PO 06/24/16 09:00 07/24/16 08:59 07/01/16 09:13 40 MG Gabapentin (Neurontin Cap) 100 mg BID PO 06/24/16 09:00 07/24/16 08:59 07/01/16 09:12 100 MG Magnesium Hydroxide (Milk Of Magnesia Susp) 30 ml UD PRN PO 06/23/16 21:30 07/23/16 21:29 Multivitamins (Multivitamin Tab) 1 tab DAILY PO 06/24/16 09:00 07/24/16 08:59 07/01/16 09:13 1 TAB Oxycodone/ Acetaminophen (Percocet 5-325MG Tab) 1 tab Q6H PRN PO 06/23/16 21:30 07/07/16 21:29 06/30/16 20:49 1 TAB Sodium Biphosphate/ Sodium Phosphate (Fleet Enema) 133 ml UD PRN AL 06/23/16 21:30 07/23/16 21:29 Tramadol HCl (Ultram Tab) 50 mg Q6H PRN PO 06/23/16 21:30 07/23/16 21:29 06/29/16 14:40 50 MG Trazodone HCl (Desyrel Tab) 50 mg BID PO 06/24/16 09:00 07/24/16 08:59 07/01/16 09:13 50 MG Calcium/Vitamin D (Caltrate Plus Tab) 1 tab DAILY PO 06/24/16 09:00 07/24/16 08:59 07/01/16 09:14 1 TAB Polyethylene (Miralax Powder Packet) 17 gm DAILY PRN PO 06/23/16 21:30 07/23/16 21:29 Ondansetron HCl (Zofran Inj) 4 mg Q6H PRN IV 06/23/16 21:30 07/23/16 21:29 Cyanocobalamin (Vitamin B-12 Tab) 1,000 mcg QAM PO 06/30/16 09:00 07/30/16 08:59 07/01/16 09:11 1,000 MCG Heparin Sodium (Porcine) (Heparin Sq 5000 Unit/0.5ml) 5,000 unit Q12 SQ 06/29/16 21:00 07/29/16 20:59 07/01/16 09:24 5,000 UNIT Daptomycin 1 ea 1 ea UD PRN N/A 06/30/16 11:00 07/30/16 10:59 Daptomycin 350 mg/ Sodium Chloride 57 ml @ 100 mls/hr Q48H IV 06/30/16 18:00 07/30/16 17:59 06/30/16 18:30 100 MLS/HR Potassium Chloride/Dextrose/ Sod Cl (D5W And 1/4nss + 20meq KCl) 1,000 ml @ 100 mls/hr Q10H IV 07/01/16 09:30 07/31/16 09:29 07/01/16 09:24 100 MLS/HR Objective Vital Signs Date Time Temp Pulse Resp B/P Pulse Ox O2 Delivery O2 Flow Rate FiO2 07/01/16 06:52 36.7 82 20 148/74 100 Nasal Cannula 4.0 07/01/16 00:15 06/30/16 22:50 37.2 85 18 119/65 90 CPAP 06/30/16 16:30 99 Nasal Cannula 2.0 06/30/16 15:36 36.7 84 18 155/75 99 Nasal Cannula 2.0 Physical Exam General Appearance: WD/WN, no apparent distress Eyes: normal inspection ENT: hearing grossly normal Neck: supple Respiratory/Chest: chest non-tender, no respiratory distress, no accessory muscle use, + crackles (left upper lobe- different from yesterday) Cardiovascular: regular rate, rhythm Abdomen: normal bowel sounds Extremities: + pertinent finding (dressing on left hip c/d/i) Neurologic/Psychiatric: alert, normal mood/affect Skin: normal color, warm/dry, no rash Laboratory Results RUN DATE: 07/01/16 [facility] PAGE 1 RUN TIME: 818 Specimen Inquiry PATIENT: MIKI FORBES LOC: [facility] U # : [id number] AGE/SX: 85/F ROOM: N376 REG : 06/23/[address]: Eliezer Rojo MD : [id number] BED: 1 DIS : STATUS: ADM IN TLOC: SPEC #: [id number] SHI: 06/27/16 STATUS: COMP REQ #: [id number] RECD: 06/27/[address]: Manny Paulino M.D. SOURCE: JOINT FLSP ENTR: 06/27/[address] [facility] DR: [facility] SPDESC: Katty LISA Jonathan, MD Pasquariello, Rick D M.D. Ridenour, Ryan, D.O. Sefter, John C., DO ORDERED: LIDIA COREAS/SP CU/SM Procedure Result Verified Site GRAM STAIN Final 06/27/16 RESULT MANY WBCs SEEN FEW GRAM POSITIVE COCCI JOINT FLUID/SPACE CULTURE Final 07/01/16-08 Organism 1 COAG NEG STAPH NOT LUGDUNENSIS QUANITY RARE SENS SENSITIVITY TO FOLLOW 1. COAG NEG STAPH NOT LUGDUNENSIS Target Route Dose RX AB Cost M.I.C. IQ ------ ----- ------ -- ------ -------- - ------ TRIMET/SULFA R >2/38 * OXACILLIN R >2 VANCOMYCIN S 4 ERYTHROMYCIN S <=0.5 CLINDAMYCIN S <=0.5 DAPTOMYCIN S <=0.5 S = SENSITIVE I = INTERMEDIATE R = RESISTANT \ Item Value Date Time Gram Stain - Final Resulted 06/27/16 1402 Cellulitis Hip , Left Gram Stain - Final Complete 06/27/16 0745 Joint Fluid/Space (Synovial) Hip , Left Last 24 Hours Test 07/01/16 07:00 White Blood Count 12.07 K/uL Red Blood Count 3.77 M/uL Hemoglobin 11.7 g/dL Hematocrit 35.6 % Mean Corpuscular Volume 94.4 fL Mean Corpuscular Hemoglobin 31.0 pg Mean Corpuscular Hemoglobin Concent 32.9 g/dl RDW Standard Deviation 48.7 fL RDW Coefficient of Variation 14.1 % Platelet Count 305 K/uL Mean Platelet Volume 11.5 fL Sodium Level 147 mmol/L Potassium Level 3.9 mmol/L Chloride Level 113 mmol/L Carbon Dioxide Level 26 mmol/L Anion Gap 8.0 mmol/L Blood Urea Nitrogen 13 mg/dl Creatinine 2.10 mg/dl Est Creatinine Clear Calc Drug Dose 20.8 ml/min Estimated GFR () 24.1 Estimated GFR (Non- 20.8 BUN/Creatinine Ratio 6.1 Random Glucose 96 mg/dl Calcium Level 8.6 mg/dl Assessment and Plan Patient with left septic post-operative seroma with coag-negative staph. She is currently on IV Daptomycin. Patient likely will require at least 2 weeks of IV abx therapy. She will need to stay on either Daptomycin or could consider Ceftaroline because of increased Vancomycin LAURA of 4. She is not a candidate for Zyvox due to being on SSRI. We will follow. PROVIDER ADDENDUM: Patient reviewed with Ms. Elmore. Agree with above assessment.
--- NOTE | 2016-07-01 13:18 | PROGRESS NOTE ---
DATE: 07/01/2016 SUBJECTIVE: She is alert, oriented. She was a little confused and she did not recognize me early and does say she is becoming quite forgetful. OBJECTIVE: Her wound is clean, it is well protected. There is still some erythema. She is afebrile. Cultures do demonstrate a coag-negative staph. ASSESSMENT: Cellulitis and infected left hip bursa sac. DISPOSITION: Includes continue IV antibiotics, extended care facility placement. She is allowed full weightbearing to the lower extremity. I recommend dressing changes about every 24-48 hours.
[2016-07-01] MEDS ORDERED: DULOXETINE HCL 20 MG CAP PO ONE (14:30)
--- NOTE | 2016-07-01 14:51 | DIAGNOSTIC IMAGING REPORT ---
CHEST ONE VIEW PORTABLE CLINICAL HISTORY: Respiratory difficulty COMPARISON STUDY: 06/30/2016 FINDINGS: The cardiac and mediastinal contours remain stable. There are surgical clips in the left axillary region. There is blunting of the lateral costophrenic angle suggesting small effusions. There are increasing bilateral interstitial lung opacities left greater than right.[ IMPRESSION: 1. Increasing nonspecific bilateral interstitial lung opacities left greater than right 2. Suspected small pleural effusions Electronically signed by: Forest Perkins M.D. 07/01/2016 2:49 PM
[2016-07-01 14:57] VITALS: BP 181/76; PULSE 84; TEMP 36.8; O2SAT 99
[2016-07-01] MEDS: CLINDAMYCIN IV 600 MG in DEXTROSE 5% ADD-VANTAGE 50ML 50 ML IV SCH ×2 (15:10→21:41)
[2016-07-01 15:14] VITALS: BP 161/80
[2016-07-01 17:52] LABS: BUN/CREATININE RATIO 5.7 (10-20); CALCIUM 8.7 mg/dl (8.5-10.1); CREATININE 2.1 mg/dl (0.60-1.20); POTASSIUM 4.3 mmol/L (3.5-5.1)
[2016-07-01] MEDS ORDERED: DAPTOmycin IV 350 MG in SODIUM CHLORIDE 0.9% 50ML 50 ML IV SCH (18:00)
[2016-07-01] MEDS ORDERED: FUROSEMIDE INJ 20 MG in SYRINGE 0 ML IV ONE (20:00)
[2016-07-01 20:15] VITALS: O2SAT 99
[2016-07-01 23:25] VITALS: BP 138/71; PULSE 83; TEMP 36.7; O2SAT 96
--- NOTE | 2016-07-01 23:30 | Progress Note ---
Subjective Date of Service: Jul 01, 2016. Subjective Pt evaluation today including: conversation w/ patient, physical exam, chart review, lab review, review of studies (cxr), conversation w/ field service consultant (ID), review of inpatient medication list Pain: left hip PO Intake: fair Voiding: no voiding problems patient expresses feelings of depression she states "I don't feel good" when asked to describe what she means she says "both physically and mentally" she openly admits to not enjoying activities any longer - TV, reading, etc denies cough or sob at rest Problem List Medical Problems: (1) Cellulitis of left hip Status: Acute (2) Frequent falls Status: Acute (3) Hip fracture, left Status: Acute (4) Left arm cellulitis Status: Acute (5) Lymphedema of upper extremity Status: Acute (6) Postoperative wound infection Status: Acute (7) Weakness Status: Acute Review of Systems Respiratory: No cough, No dyspnea at rest, No sputum Cardiac: No chest pain, No orthopnea Abdomen: No pain Objective Vital Signs Date Time Temp Pulse Resp B/P Pulse Ox O2 Delivery O2 Flow Rate FiO2 07/01/16 20:15 99 Nasal Cannula 4.0 07/01/16 15:14 161/80 07/01/16 14:57 36.8 84 16 181/76 99 Nasal Cannula 4.0 07/01/16 08:00 Nasal Cannula 4.0 07/01/16 06:52 36.7 82 20 148/74 100 Nasal Cannula 4.0 07/01/16 00:15 Physical Exam General Appearance: no apparent distress ENT: pharynx normal Neck: no JVD Respiratory/Chest: no respiratory distress, no accessory muscle use, + crackles (diffuse bilateral bases; also heard anteriorly on the left chest) Cardiovascular: regular rate, rhythm, no gallop, no murmur Abdomen: normal bowel sounds, non tender, soft, no organomegaly Extremities: no pedal edema, + swelling (left thigh/hip) Neurologic/Psychiatric: alert, + depressed affect Skin: + pertinent finding (resolving ecchymoses left hip; swelling left hip unchanged; dressings in place ) Laboratory Results Last 24 Hours Test 07/01/16 07:00 07/01/16 17:04 White Blood Count 12.07 K/uL Red Blood Count 3.77 M/uL Hemoglobin 11.7 g/dL Hematocrit 35.6 % Mean Corpuscular Volume 94.4 fL Mean Corpuscular Hemoglobin 31.0 pg Mean Corpuscular Hemoglobin Concent 32.9 g/dl RDW Standard Deviation 48.7 fL RDW Coefficient of Variation 14.1 % Platelet Count 305 K/uL Mean Platelet Volume 11.5 fL Sodium Level 147 mmol/L 146 mmol/L Potassium Level 3.9 mmol/L 4.3 mmol/L Chloride Level 113 mmol/L 110 mmol/L Carbon Dioxide Level 26 mmol/L 27 mmol/L Anion Gap 8.0 mmol/L 9.0 mmol/L Blood Urea Nitrogen 13 mg/dl 12 mg/dl Creatinine 2.10 mg/dl 2.10 mg/dl Est Creatinine Clear Calc Drug Dose 20.8 ml/min 20.8 ml/min Estimated GFR () 24.1 24.1 Estimated GFR (Non- 20.8 20.8 BUN/Creatinine Ratio 6.1 5.7 Random Glucose 96 mg/dl 110 mg/dl Calcium Level 8.6 mg/dl 8.7 mg/dl Assessment and Plan 85yo female with: 1. left hip post-op infected seroma with cellulitis - clinically improving. s/p I/D in the OR. Appreciate ortho consultation & recommendations. Intra-op cultures with coag negative staph. ID consult appreciated. Will need about 2 weeks of IV therapy at minimum. Due to BRYN vancomycin is not a good choice. SNF will not cover daptomycin. Thus, ID has selected clindamycin. 2. acute kidney injury - suspect 2nd to vancomycin. Repeat BMP slightly worse today, but repeat Cr later in the day unchanged. Making good UOP. BMP again in am. 3. chronic resp failure - uncertain why she has chronic o2 requirement; most recent echo without pulmonary HTN, etc. Continue NC O2. Likely some form of chronic lung disease - ILD?? 4. DVT proph - resumed heparin BID cautiously on 06/29/16. 5. PHAM - continue HS CPAP. 6. h/o left sided breast cancer - noted; with resulting lymphedema. 7. chronic b12 def - cont b12 supplementation. 8. FEN - stop fluids due to concern of volume overload (see below). repeat labs in am. 9. ?acute/chronic diastolic CHF - repeat cxr today with worsening interstitial infiltrates. Despite such she has no significant symptoms. She is 10+ liters positive since admission. Stop fluids. Lasix 20mg IV x 1. Reassess in AM. 10. depression - already on large dose of prozac. Start cymbalta 20mg once daily. [facility], OT consultations appreciated update daughter in AM Continued [facility] stay due to: ambulation difficulties, multiple IV medications needed Discharge planning: long-term facility
[2016-07-02] MEDS: CLINDAMYCIN IV 600 MG in DEXTROSE 5% ADD-VANTAGE 50ML 50 ML IV SCH ×3 (05:52→21:42)
[2016-07-02 07:37] VITALS: BP 161/79; PULSE 80; TEMP 36.5; O2SAT 95
[2016-07-02 08:01] LABS: BASO % 0.3 %; BASO ABS # 0.03 K/uL (0-0.2); COMPLETE YES; EOS % 6.7 %; HEMATOCRIT 33.4 % (37-47); IG% 0.1 %; LYMPH % 13.2 %; LYMPH ABS # 1.26 K/uL (1.2-3.4); MEAN CELL VOLUME 94.6 fL (80-100); MEAN CORPUSCULAR HEMOGLOBIN 31.2 pg (25-34); MEAN CORPUSCULAR HGB CONC 32.9 g/dl (32-36); MEAN PLATELET VOLUME 11.5 fL (7.4-10.4); MONO % 13.5 %; NEUT % 66.2 %; PLATELET COUNT 342 K/uL (130-400); RED BLOOD COUNT 3.53 M/uL (4.2-5.4); WHITE BLOOD COUNT 9.58 K/uL (4.8-10.8)
[2016-07-02 08:31] LABS: BUN/CREATININE RATIO 6.6 (10-20); POTASSIUM 3.8 mmol/L (3.5-5.1)
[2016-07-02 09:04] VITALS: O2SAT 95
[2016-07-02] MEDS: CLOTRIMAZOLE 1% CR 15 GM TUBE EXT SCH ×2 (09:09→20:36)
[2016-07-02] MEDS: LACTOBACILLUS ACIDOPHILUS (FLORANEX) TAB PO SCH ×3 (09:09→17:32)
[2016-07-02] MEDS: FLUOXETINE HCL 20 MG CAP PO SCH (09:09)
[2016-07-02] MEDS: DULOXETINE HCL 20 MG CAP PO SCH (09:10)
[2016-07-02] MEDS: MULTIVITAMIN TAB PO SCH (09:10)
[2016-07-02] MEDS: CALCIUM 600MG + VIT D 400 IU TAB PO SCH (09:10)
[2016-07-02] MEDS: CYANOCOBALAMIN 500 MCG TAB (VIT B-12) PO SCH (09:10)
[2016-07-02] MEDS: CHOLECALCIFEROL 1000 INTER.UNIT TAB PO SCH (09:11)
[2016-07-02] MEDS: ASCORBIC ACID 500 MG TAB PO SCH ×2 (09:11→20:36)
[2016-07-02] MEDS: DOCUSATE SODIUM 100 MG CAP PO SCH ×2 (09:11→20:36)
[2016-07-02] MEDS: GABAPENTIN 100 MG CAP PO SCH ×2 (09:12→20:37)
[2016-07-02] MEDS: TRAZODONE HCL 50 MG TAB PO SCH ×2 (09:12→20:36)
[2016-07-02] MEDS: HEPARIN SOD 5000 UNIT/0.5 ML CARP SQ SCH ×2 (09:17→20:40)
--- NOTE | 2016-07-02 10:07 | DIAGNOSTIC IMAGING REPORT ---
CHEST 2 VIEWS ROUTINE CLINICAL HISTORY: Infiltrates. Evaluate for interval change. COMPARISON: Chest radiograph July 01, 2016. FINDINGS: Lung volumes are diminished. This is unchanged. Elevation of the right hemidiaphragm is unchanged. Mild cardiomegaly is again noted. There are left axillary surgical clips. Asymmetric interstitial thickening within the left lung is again noted. Right lower lung opacity favors atelectasis. No lobar consolidation is present. There is no evidence of pulmonary edema. IMPRESSION: 1. Mild left lower lung airspace opacity which is slightly increased since prior exams. This could reflect atelectasis or consolidation. 2. Otherwise, unchanged appearance of the chest with diminished lung volumes and elevation of the right hemidiaphragm. Electronically signed by: Harley Lockhart M.D. 07/02/2016 10:06 AM
--- NOTE | 2016-07-02 14:58 | Infectious Disease Progress Nt ---
Progress Note Date of Service Jul 02, 2016. Subjective Pt evaluation today including: conversation w/ patient, physical exam, chart review, lab review, review of studies, conversation w/ java developer consultant (Dr. East), review of inpatient medication list Patient's sodium is 149 this morning and creatinine is 2.00. WBC count is 9.58. No new micro. Repeat Chest X-ray showed mild left lower lung airspace opacity increased compared to prior exam- question atelectasis versus consolidation. Patient is complaining of continued SOB today and "disinterest" in "everything" including food, water, activities when asked specifically. She states that her left hip pain is improved. All Other Systems: Reviewed and Negative Medications Current Inpatient Medications Medications (Trade) Dose Ordered Sig/Doug Route Start Time Stop Time Status Last Admin Dose Admin Acetaminophen (Tylenol Tab) 650 mg Q4H PRN PO 06/23/16 21:30 07/23/16 21:29 Ascorbic Acid (Vitamin C Tab) 1,000 mg BID PO 06/24/16 09:00 07/24/16 08:59 07/02/16 09:11 1,000 MG Bisacodyl (Dulcolax Supp) 10 mg UD PRN [place] 06/23/16 21:30 07/23/16 21:29 Cholecalciferol (Vitamin D Tab) 1,000 inter.unit DAILY PO 06/24/16 09:00 07/24/16 08:59 07/02/16 09:11 1,000 INTER.UNIT Clotrimazole (Lotrimin 1% Crm) 1 appln BID EXT 06/24/16 09:00 07/24/16 08:59 07/02/16 09:09 1 APPLN Docusate Sodium (coLACE CAP) 200 mg BID PO 06/24/16 09:00 07/24/16 08:59 07/02/16 09:11 200 MG Fluoxetine HCl (Prozac Cap) 40 mg QAM PO 06/24/16 09:00 07/24/16 08:59 07/02/16 09:09 40 MG Gabapentin (Neurontin Cap) 100 mg BID PO 06/24/16 09:00 07/24/16 08:59 07/02/16 09:12 100 MG Magnesium Hydroxide (Milk Of Magnesia Susp) 30 ml UD PRN PO 06/23/16 21:30 07/23/16 21:29 Multivitamins (Multivitamin Tab) 1 tab DAILY PO 06/24/16 09:00 07/24/16 08:59 07/02/16 09:10 1 TAB Oxycodone/ Acetaminophen (Percocet 5-325MG Tab) 1 tab Q6H PRN PO 06/23/16 21:30 07/07/16 21:29 06/30/16 20:49 1 TAB Sodium Biphosphate/ Sodium Phosphate (Fleet Enema) 133 ml UD PRN [place] 06/23/16 21:30 07/23/16 21:29 Tramadol HCl (Ultram Tab) 50 mg Q6H PRN PO 06/23/16 21:30 07/23/16 21:29 06/29/16 14:40 50 MG Trazodone HCl (Desyrel Tab) 50 mg BID PO 06/24/16 09:00 07/24/16 08:59 07/02/16 09:12 50 MG Calcium/Vitamin D (Caltrate Plus Tab) 1 tab DAILY PO 06/24/16 09:00 07/24/16 08:59 07/02/16 09:10 1 TAB Polyethylene (Miralax Powder Packet) 17 gm DAILY PRN PO 06/23/16 21:30 07/23/16 21:29 Ondansetron HCl (Zofran Inj) 4 mg Q6H PRN IV 06/23/16 21:30 07/23/16 21:29 Cyanocobalamin (Vitamin B-12 Tab) 1,000 mcg QAM PO 06/30/16 09:00 07/30/16 08:59 07/02/16 09:10 1,000 MCG Heparin Sodium (Porcine) (Heparin Sq 5000 Unit/0.5ml) 5,000 unit Q12 SQ 06/29/16 21:00 07/29/16 20:59 07/02/16 09:17 5,000 UNIT Duloxetine HCl 20 mg 20 mg QAM PO 07/02/16 09:00 08/01/16 08:59 07/02/16 09:10 20 MG Clindamycin Phosphate/Dextrose (Cleocin Iv/ Dextrose Add-[place] 50ML) 54 ml @ 100 mls/hr Q8 IV 07/01/16 15:00 07/11/16 14:59 07/02/16 05:52 100 MLS/HR Lactobacillus Acidophilus 4 tab 4 tab TIDM PO 07/02/16 08:30 08/01/16 08:29 07/02/16 12:56 4 TAB Dextrose (D5W 1000ml) 1,000 ml @ 50 mls/hr Q20H IV 07/02/16 10:45 08/01/16 10:44 Objective Vital Signs Date Time Temp Pulse Resp B/P Pulse Ox O2 Delivery O2 Flow Rate FiO2 07/02/16 09:04 95 Nasal Cannula 3.0 07/02/16 07:37 36.5 80 16 161/79 95 CPAP 07/02/16 07:30 Nasal Cannula 3.0 07/01/16 23:30 CPAP 3.0 07/01/16 23:25 36.7 83 18 138/71 96 CPAP 3.0 07/01/16 20:15 99 Nasal Cannula 4.0 07/01/16 15:14 161/80 07/01/16 14:57 36.8 84 16 181/76 99 Nasal Cannula 4.0 Physical Exam General Appearance: WD/WN, no apparent distress Eyes: normal inspection, sclerae normal ENT: hearing grossly normal Neck: supple, trachea midline Respiratory/Chest: chest non-tender, normal breath sounds, no respiratory distress, no accessory muscle use, + crackles (left upper lobe) Cardiovascular: regular rate, rhythm Abdomen: normal bowel sounds Extremities: + pertinent finding (dressing on left hip C/D/I. No surrounding erythema.) Neurologic/Psychiatric: alert, normal mood/affect Skin: normal color, warm/dry, no rash Laboratory Results CHEST 2 VIEWS ROUTINE CLINICAL HISTORY: Infiltrates. Evaluate for interval change. COMPARISON: Chest radiograph July 01, 2016. FINDINGS: Lung volumes are diminished. This is unchanged. Elevation of the right hemidiaphragm is unchanged. Mild cardiomegaly is again noted. There are left axillary surgical clips. Asymmetric interstitial thickening within the left lung is again noted. Right lower lung opacity favors atelectasis. No lobar consolidation is present. There is no evidence of pulmonary edema. IMPRESSION: 1. Mild left lower lung airspace opacity which is slightly increased since prior exams. This could reflect atelectasis or consolidation. 2. Otherwise, unchanged appearance of the chest with diminished lung volumes and elevation of the right hemidiaphragm. Last 24 Hours Test 07/01/16 17:04 07/02/16 07:04 Sodium Level 146 mmol/L 149 mmol/L Potassium Level 4.3 mmol/L 3.8 mmol/L Chloride Level 110 mmol/L 110 mmol/L Carbon Dioxide Level 27 mmol/L 27 mmol/L Anion Gap 9.0 mmol/L 12.0 mmol/L Blood Urea Nitrogen 12 mg/dl 13 mg/dl Creatinine 2.10 mg/dl 2.00 mg/dl Est Creatinine Clear Calc Drug Dose 20.8 ml/min 21.9 ml/min Estimated GFR () 24.1 25.6 Estimated GFR (Non- 20.8 22.0 BUN/Creatinine Ratio 5.7 6.6 Random Glucose 110 mg/dl 90 mg/dl Calcium Level 8.7 mg/dl 9.0 mg/dl White Blood Count 9.58 K/uL Red Blood Count 3.53 M/uL Hemoglobin 11.0 g/dL Hematocrit 33.4 % Mean Corpuscular Volume 94.6 fL Mean Corpuscular Hemoglobin 31.2 pg Mean Corpuscular Hemoglobin Concent 32.9 g/dl Platelet Count 342 K/uL Mean Platelet Volume 11.5 fL Neutrophils (%) (Auto) 66.2 % Lymphocytes (%) (Auto) 13.2 % Monocytes (%) (Auto) 13.5 % Eosinophils (%) (Auto) 6.7 % Basophils (%) (Auto) 0.3 % Neutrophils # (Auto) 6.35 K/uL Lymphocytes # (Auto) 1.26 K/uL Monocytes # (Auto) 1.29 K/uL Eosinophils # (Auto) 0.64 K/uL Basophils # (Auto) 0.03 K/uL RDW Standard Deviation 48.8 fL RDW Coefficient of Variation 14.2 % Immature Granulocyte % (Auto) 0.1 % Immature Granulocyte # (Auto) 0.01 K/uL Magnesium Level 2.0 mg/dl Assessment and Plan Patient with left septic post-operative seroma with coag-negative staph. She is currently on IV Clindamycin and likely will need to continue this for at least 2 weeks with reassessment prior to discontinuation. Patient is anticipating D/C to rehab. Also, in regards to possible consolidation on CXR, discussed with Dr. East and Dr. Weller, because of new onset crackles along with complaint of SOB and new CXR findings, recommend addition of levofloxacin for concerns of developing pneumonia. We will continue to follow. PROVIDER ADDENDUM: Patient reviewed with Ms. Elmore. Agree with above assessment.
[2016-07-02] MEDS ORDERED: LEVOFLOXACIN CONSULT ACTIVE PRN (15:15)
[2016-07-02 16:02] VITALS: BP 168/67; PULSE 80; TEMP 36.5; O2SAT 95
[2016-07-02] MEDS: LEVOFLOXACIN 750 MG TAB PO SCH (16:21)
[2016-07-02] MEDS: DEXTROSE 5% 1000ML 1,000 ML IV SCH (17:29)
[2016-07-02] MEDS: ONDANSETRON INJ 2 MG/ML 2 ML VIAL IV PRN (18:19)
[2016-07-02 18:37] VITALS: BP 153/77
[2016-07-02] MEDS: OXYCODONE/ACETAMINOPHEN 5-325 TAB PO PRN (21:42)
[2016-07-02] MEDS: TRAMADOL HCL 50 MG TAB PO PRN (22:46)
[2016-07-02 23:09] VITALS: BP 119/58; PULSE 74; TEMP 36.6; O2SAT 94
--- NOTE | 2016-07-02 23:13 | Progress Note ---
Subjective Date of Service: Jul 02, 2016. Subjective Pt evaluation today including: conversation w/ patient, conversation w/ family (daughter by phone), physical exam, chart review, lab review, review of studies (cxr), conversation w/ data integrity consultant (infectious disease), review of inpatient medication list Pain: left hip - minimal PO Intake: fair at best no issues overnight per staff PICC line consent obtained and PICC line placed today patient reports feeling tired but otherwise offers no other complaints Problem List Medical Problems: (1) Cellulitis of left hip Status: Acute (2) Frequent falls Status: Acute (3) Hip fracture, left Status: Acute (4) Left arm cellulitis Status: Acute (5) Lymphedema of upper extremity Status: Acute (6) Postoperative wound infection Status: Acute (7) Weakness Status: Acute Review of Systems Constitutional: No fever Respiratory: + cough, No dyspnea at rest Cardiac: No chest pain Abdomen: No pain Objective Vital Signs Date Time Temp Pulse Resp B/P Pulse Ox O2 Delivery O2 Flow Rate FiO2 07/02/16 18:37 153/77 07/02/16 16:02 36.5 80 19 168/67 95 Nasal Cannula 3.0 07/02/16 15:45 Nasal Cannula 3.0 07/02/16 09:04 95 Nasal Cannula 3.0 07/02/16 07:37 36.5 80 16 161/79 95 CPAP 07/02/16 07:30 Nasal Cannula 3.0 07/01/16 23:30 CPAP 3.0 07/01/16 23:25 36.7 83 18 138/71 96 CPAP 3.0 Physical Exam General Appearance: no apparent distress ENT: pharynx normal Neck: no JVD Respiratory/Chest: no respiratory distress, no accessory muscle use, + crackles (left anterior chest as well as both bases posteriorly) Cardiovascular: regular rate, rhythm, no gallop, no murmur Abdomen: normal bowel sounds, non tender, soft, no organomegaly Extremities: + pertinent finding (left arm lymphedema (baseline); swelling left thigh unchanged; SCDs in place both LEs) Skin: + pertinent finding (resolving cellulitis and ecchymoses left hip) Laboratory Results Last 24 Hours Test 07/02/16 07:04 White Blood Count 9.58 K/uL Red Blood Count 3.53 M/uL Hemoglobin 11.0 g/dL Hematocrit 33.4 % Mean Corpuscular Volume 94.6 fL Mean Corpuscular Hemoglobin 31.2 pg Mean Corpuscular Hemoglobin Concent 32.9 g/dl Platelet Count 342 K/uL Mean Platelet Volume 11.5 fL Neutrophils (%) (Auto) 66.2 % Lymphocytes (%) (Auto) 13.2 % Monocytes (%) (Auto) 13.5 % Eosinophils (%) (Auto) 6.7 % Basophils (%) (Auto) 0.3 % Neutrophils # (Auto) 6.35 K/uL Lymphocytes # (Auto) 1.26 K/uL Monocytes # (Auto) 1.29 K/uL Eosinophils # (Auto) 0.64 K/uL Basophils # (Auto) 0.03 K/uL RDW Standard Deviation 48.8 fL RDW Coefficient of Variation 14.2 % Immature Granulocyte % (Auto) 0.1 % Immature Granulocyte # (Auto) 0.01 K/uL Sodium Level 149 mmol/L Potassium Level 3.8 mmol/L Chloride Level 110 mmol/L Carbon Dioxide Level 27 mmol/L Anion Gap 12.0 mmol/L Blood Urea Nitrogen 13 mg/dl Creatinine 2.00 mg/dl Est Creatinine Clear Calc Drug Dose 21.9 ml/min Estimated GFR () 25.6 Estimated GFR (Non- 22.0 BUN/Creatinine Ratio 6.6 Random Glucose 90 mg/dl Calcium Level 9.0 mg/dl Magnesium Level 2.0 mg/dl Assessment and Plan 85yo female with: 1. left hip post-op infected seroma with cellulitis - again clinically improving. s/p I/D in the OR. Intra-op cultures with coag negative staph. Will need about 2 weeks of IV therapy at minimum. Due to BRYN vancomycin is not a good choice. SNF will not cover daptomycin. Thus, ID has selected clindamycin and so far she is tolerating this. Appreciate ID and ortho consults. 2. acute kidney injury - suspect 2nd to vancomycin. Cr not any better but not worse. Urine output very adequate. BMP in am. 3. chronic resp failure - etiology? Continue NC O2. Will investigate outpatient records. 4. DVT proph - heparin BID + SCDs. 5. PHAM - continue HS CPAP. 6. hypernatremia - worse following dose of lasix today. I do not believe she is in acute CHF. restart fluids - D5W at 50cc/hr. Repeat BMP am. 7. left sided pneumonia - clinically present as well as radiographically. ID has selected levaquin to cover such which is good choice. Day #1 today. Clindamycin will provide anaerobe coverage and some MRSA coverage. 8. FEN - repeat BMP in am. Restart fluids with D5W. 9. ?acute/chronic diastolic CHF - lasix made Na worse, no significant diuresis , and cxr no better. DOUBT CHF. stop all diuretics. 10. depression - cont prozac + cymbalta. 11. dispo - [facility] PT, OT consultations appreciated updated daughter by phone supriya PICC line placed today Continued [facility] stay due to: ambulation difficulties, multiple IV medications needed Discharge planning: senior care facility
[2016-07-03] MEDS: DEXTROSE 5% 1000ML 1,000 ML IV SCH (05:39)
[2016-07-03] MEDS: CLINDAMYCIN IV 600 MG in DEXTROSE 5% ADD-VANTAGE 50ML 50 ML IV SCH ×3 (05:39→22:09)
[2016-07-03 06:55] VITALS: BP 112/62; PULSE 68; TEMP 36.4; O2SAT 95
[2016-07-03] MEDS: LACTOBACILLUS ACIDOPHILUS (FLORANEX) TAB PO SCH ×3 (09:00→17:49)
[2016-07-03] MEDS: DOCUSATE SODIUM 100 MG CAP PO SCH ×2 (09:00→21:04)
[2016-07-03] MEDS: CALCIUM 600MG + VIT D 400 IU TAB PO SCH (09:01)
[2016-07-03] MEDS: TRAZODONE HCL 50 MG TAB PO SCH ×2 (09:01→21:04)
[2016-07-03] MEDS: CYANOCOBALAMIN 500 MCG TAB (VIT B-12) PO SCH (09:01)
[2016-07-03] MEDS: ASCORBIC ACID 500 MG TAB PO SCH ×2 (09:01→21:04)
[2016-07-03] MEDS: CLOTRIMAZOLE 1% CR 15 GM TUBE EXT SCH ×2 (09:01→21:03)
[2016-07-03] MEDS: FLUOXETINE HCL 20 MG CAP PO SCH (09:02)
[2016-07-03] MEDS: DULOXETINE HCL 20 MG CAP PO SCH (09:02)
[2016-07-03] MEDS: MULTIVITAMIN TAB PO SCH (09:02)
[2016-07-03] MEDS: GABAPENTIN 100 MG CAP PO SCH ×2 (09:02→21:04)
[2016-07-03] MEDS: CHOLECALCIFEROL 1000 INTER.UNIT TAB PO SCH (09:03)
[2016-07-03] MEDS: HEPARIN SOD 5000 UNIT/0.5 ML CARP SQ SCH ×2 (09:07→21:06)
[2016-07-03 09:08] LABS: BUN/CREATININE RATIO 7.6 (10-20); CALCIUM 8.6 mg/dl (8.5-10.1); POTASSIUM 3.6 mmol/L (3.5-5.1)
--- NOTE | 2016-07-03 12:17 | Infectious Disease Progress Nt ---
Progress Note Date of Service Jul 03, 2016. Subjective Pt evaluation today including: conversation w/ patient, physical exam, chart review, lab review, review of studies, review of inpatient medication list WBC count today is 9.58. Creatinine continues to be 2.00. Patient states that she is feeling slightly improved today. No further SOB this morning. All Other Systems: Reviewed and Negative Medications Current Inpatient Medications Medications (Trade) Dose Ordered Sig/Doug Route Start Time Stop Time Status Last Admin Dose Admin Acetaminophen (Tylenol Tab) 650 mg Q4H PRN PO 06/23/16 21:30 07/23/16 21:29 Ascorbic Acid (Vitamin C Tab) 1,000 mg BID PO 06/24/16 09:00 07/24/16 08:59 07/03/16 09:01 1,000 MG Bisacodyl (Dulcolax Supp) [address] 06/23/16 21:30 07/23/16 21:29 Cholecalciferol (Vitamin D Tab) 1,000 inter.unit DAILY PO 06/24/16 09:00 07/24/16 08:59 07/03/16 09:03 1,000 INTER.UNIT Clotrimazole (Lotrimin 1% Crm) 1 appln BID EXT 06/24/16 09:00 07/24/16 08:59 07/03/16 09:01 1 APPLN Docusate Sodium (coLACE CAP) 200 mg BID PO 06/24/16 09:00 07/24/16 08:59 07/03/16 09:00 200 MG Fluoxetine HCl (Prozac Cap) 40 mg QAM PO 06/24/16 09:00 07/24/16 08:59 07/03/16 09:02 40 MG Gabapentin (Neurontin Cap) 100 mg BID PO 06/24/16 09:00 07/24/16 08:59 07/03/16 09:02 100 MG Magnesium Hydroxide (Milk Of Magnesia Susp) 30 ml UD PRN PO 06/23/16 21:30 07/23/16 21:29 Multivitamins (Multivitamin Tab) 1 tab DAILY PO 06/24/16 09:00 07/24/16 08:59 07/03/16 09:02 1 TAB Oxycodone/ Acetaminophen (Percocet 5-325MG Tab) 1 tab Q6H PRN PO 06/23/16 21:30 07/07/16 21:29 07/02/16 21:42 1 TAB Sodium Biphosphate/ Sodium Phosphate (Fleet Enema) [address] 06/23/16 21:30 07/23/16 21:29 Tramadol HCl (Ultram Tab) 50 mg Q6H PRN PO 06/23/16 21:30 07/23/16 21:29 07/02/16 22:46 50 MG Trazodone HCl (Desyrel Tab) 50 mg BID PO 06/24/16 09:00 07/24/16 08:59 07/03/16 09:01 50 MG Calcium/Vitamin D (Caltrate Plus Tab) 1 tab DAILY PO 06/24/16 09:00 07/24/16 08:59 07/03/16 09:01 1 TAB Polyethylene (Miralax Powder Packet) 17 gm DAILY PRN PO 06/23/16 21:30 07/23/16 21:29 Ondansetron HCl (Zofran Inj) 4 mg Q6H PRN IV 06/23/16 21:30 07/23/16 21:29 07/02/16 18:19 4 MG Cyanocobalamin (Vitamin B-12 Tab) 1,000 mcg QAM PO 06/30/16 09:00 07/30/16 08:59 07/03/16 09:01 1,000 MCG Heparin Sodium (Porcine) (Heparin Sq 5000 Unit/0.5ml) 5,000 unit Q12 SQ 06/29/16 21:00 07/29/16 20:59 07/03/16 09:07 5,000 UNIT Duloxetine HCl 20 mg 20 mg QAM PO 07/02/16 09:00 08/01/16 08:59 07/03/16 09:02 20 MG Clindamycin Phosphate/Dextrose (Cleocin Iv/ Dextrose Add-Club[place] 50ML) 54 ml @ 100 mls/hr Q8 IV 07/01/16 15:00 07/11/16 14:59 07/03/16 05:39 100 MLS/HR Lactobacillus Acidophilus 4 tab 4 tab TIDM PO 07/02/16 08:30 08/01/16 08:29 07/03/16 12:03 4 TAB Dextrose (D5W 1000ml) 1,000 ml @ 50 mls/hr Q20H IV 07/02/16 10:45 08/01/16 10:44 07/03/16 05:39 50 MLS/HR Levofloxacin (Levaquin Tab) 750 mg Q2D@1100 PO 07/02/16 15:30 07/09/16 15:29 07/02/16 16:21 750 MG Levofloxacin (Consult) 1 ea UD PRN N/A 07/02/16 15:15 08/01/16 15:14 Heparin Sodium (Porcine) (Heparin 10 Unit/ ml 5 ml Flush) 5 ml PRN PRN FLUSH 07/02/16 19:45 08/01/16 19:44 Objective Vital Signs Date Time Temp Pulse Resp B/P Pulse Ox O2 Delivery O2 Flow Rate FiO2 07/03/16 07:30 Nasal Cannula 3.0 07/03/16 06:55 36.4 68 16 112/62 95 BiPAP 07/02/16 23:40 CPAP 07/02/16 23:09 36.6 74 18 119/58 94 CPAP 3.0 07/02/16 18:37 153/77 07/02/16 16:02 36.5 80 19 168/67 95 Nasal Cannula 3.0 07/02/16 15:45 Nasal Cannula 3.0 Physical Exam General Appearance: WD/WN, no apparent distress Eyes: normal inspection, sclerae normal ENT: hearing grossly normal Neck: supple, trachea midline Respiratory/Chest: chest non-tender, no respiratory distress, no accessory muscle use, + crackles (mild left upper lobe) Cardiovascular: regular rate, rhythm Abdomen: normal bowel sounds, non tender, soft Extremities: + pertinent finding (left hip bandage in place. c/d/i) Neurologic/Psychiatric: alert, normal mood/affect Skin: normal color, warm/dry, no rash Laboratory Results Last 24 Hours Test 07/03/16 07:32 Sodium Level 143 mmol/L Potassium Level 3.6 mmol/L Chloride Level 104 mmol/L Carbon Dioxide Level 31 mmol/L Anion Gap 8.0 mmol/L Blood Urea Nitrogen 15 mg/dl Creatinine 2.00 mg/dl Est Creatinine Clear Calc Drug Dose 21.4 ml/min Estimated GFR () 25.6 Estimated GFR (Non- 22.0 BUN/Creatinine Ratio 7.6 Random Glucose 108 mg/dl Calcium Level 8.6 mg/dl Assessment and Plan Patient with left septic post-operative seroma with coag-negative staph and possible left lower lobe pneumonia. She is currently on IV Clindamycin and likely will need to continue this for at least 2 weeks with reassessment prior to discontinuation. Patient is anticipating D/C to rehab. She was also placed Levaquin for concerns of pneumonia. She appears to be improved today. Therefore, would recommend completing 7 days. PROVIDER ADDENDUM: Patient reviewed with Ms. Elmore. Agree with above assessment.
[2016-07-03 16:00] VITALS: BP 115/66; PULSE 65; TEMP 36.5; O2SAT 100
--- NOTE | 2016-07-03 22:11 | DIAGNOSTIC IMAGING REPORT ---
RETROPERITONEAL COMPLETE CLINICAL HISTORY: Renal insufficiency COMPARISON STUDY: No previous studies for comparison. FINDINGS: The right kidney measures 11.3 cm in length. The left kidney measures 11.2 cm in length. There is minimal dilatation the right renal collecting system. There is mild to moderate left-sided hydronephrosis. No renal masses are visualized. No bladder lesions are visualized. Bilateral ureteral jets were delineated. IMPRESSION: 1. No renal masses identified 2. Minimal dilatation the right collecting system. Mild to moderate left-sided hydronephrosis. 3. No bladder abnormalities were visualized. Bilateral ureteral jets were visualized. Electronically signed by: Forest Perkins M.D. 07/03/2016 10:10 PM Dictated Date/Time: 07/03/2016 10:08 PM
--- NOTE | 2016-07-03 23:19 | Progress Note ---
Subjective Date of Service: Jul 03, 2016. Subjective Pt evaluation today including: conversation w/ patient, physical exam, chart review, lab review, review of studies (renal u/s ) Pain: left hip - minimal PO Intake: fair Voiding: no voiding problems patient offers no complaints during my visit except that she "spent so much time out of bed today and now I am tired" staff report no issues urine output has been sufficient Problem List Medical Problems: (1) Cellulitis of left hip Status: Acute (2) Frequent falls Status: Acute (3) Hip fracture, left Status: Acute (4) Left arm cellulitis Status: Acute (5) Lymphedema of upper extremity Status: Acute (6) Postoperative wound infection Status: Acute (7) Weakness Status: Acute Review of Systems Constitutional: No fever Respiratory: No shortness of breath Cardiac: No chest pain Abdomen: No pain Objective Vital Signs Date Time Temp Pulse Resp B/P Pulse Ox O2 Delivery O2 Flow Rate FiO2 07/03/16 16:00 36.5 65 18 115/66 100 Nasal Cannula 3.0 07/03/16 15:45 Nasal Cannula 3.0 07/03/16 07:30 Nasal Cannula 3.0 07/03/16 06:55 36.4 68 16 112/62 95 BiPAP 07/02/16 23:40 CPAP Physical Exam General Appearance: no apparent distress ENT: pharynx normal Neck: no JVD Respiratory/Chest: no respiratory distress, no accessory muscle use, + crackles (left anterior chest, left posterior base, scant rales right posterior base) Cardiovascular: regular rate, rhythm, no gallop, no murmur Abdomen: normal bowel sounds, non tender, soft, no organomegaly Extremities: no pedal edema, + pertinent finding (left hip/thigh swelling markedly improved) Skin: + pertinent finding (minimal cellulitis left hip) Laboratory Results Last 24 Hours Test 07/03/16 07:32 Sodium Level 143 mmol/L Potassium Level 3.6 mmol/L Chloride Level 104 mmol/L Carbon Dioxide Level 31 mmol/L Anion Gap 8.0 mmol/L Blood Urea Nitrogen 15 mg/dl Creatinine 2.00 mg/dl Est Creatinine Clear Calc Drug Dose 21.4 ml/min Estimated GFR () 25.6 Estimated GFR (Non- 22.0 BUN/Creatinine Ratio 7.6 Random Glucose 108 mg/dl Calcium Level 8.6 mg/dl Assessment and Plan 85yo female with: 1. left hip post-op infected seroma with cellulitis s/p I/D in the OR - stable , improved. Intra-op cultures with coag negative staph. Will need about 2 weeks of IV therapy at minimum. Cont IV clindamycin. Appreciate ID and ortho consults. 2. acute kidney injury - suspect 2nd to vancomycin, but despite time and hydration Cr has not improved. Checked renal u/s and there is evidence of hydronephrosis. May ask urology to consult for their opinion. Need to check CT to exclude stones, masses, etc?? 3. chronic resp failure - stable on home O2 amount. Etiology uncertain. 4. DVT proph - heparin BID + SCDs. 5. PHAM - continue HS CPAP. 6. hypernatremia - resolved; d/c fluids today. 7. left sided pneumonia - day #2 levaquin for gram negative coverage. Clindamycin will provide anaerobe coverage and some MRSA coverage. 8. FEN - eating is fair, lytes are stable, Na now normal, d/c fluids later today. 9. depression - cont prozac + cymbalta. Tolerating latter. Increase cymbalta dose in 1-2 weeks. [facility]. [facility] daughter updated by phone on 07/02/16 Continued [facility] stay due to: ambulation difficulties, multiple IV medications needed Discharge planning: shelter facility
[2016-07-03 23:41] VITALS: BP 93/51; PULSE 85; TEMP 36.5; O2SAT 98
[2016-07-04] MEDS: CLINDAMYCIN IV 600 MG in DEXTROSE 5% ADD-VANTAGE 50ML 50 ML IV SCH ×3 (05:40→21:24)
[2016-07-04 06:28] LABS: BUN/CREATININE RATIO 7.3 (10-20); CREATININE 2.2 mg/dl (0.60-1.20); POTASSIUM 3.6 mmol/L (3.5-5.1)
[2016-07-04 07:37] VITALS: BP 113/56; PULSE 75; TEMP 36.6; O2SAT 98
[2016-07-04 07:56] VITALS: O2SAT 98
[2016-07-04] MEDS: LACTOBACILLUS ACIDOPHILUS (FLORANEX) TAB PO SCH ×3 (08:59→17:51)
[2016-07-04] MEDS: DOCUSATE SODIUM 100 MG CAP PO SCH ×2 (08:59→19:56)
[2016-07-04] MEDS: CALCIUM 600MG + VIT D 400 IU TAB PO SCH (08:59)
[2016-07-04] MEDS: CYANOCOBALAMIN 500 MCG TAB (VIT B-12) PO SCH (08:59)
[2016-07-04] MEDS: ASCORBIC ACID 500 MG TAB PO SCH ×2 (09:00→19:57)
[2016-07-04] MEDS: DULOXETINE HCL 20 MG CAP PO SCH (09:00)
[2016-07-04] MEDS: CLOTRIMAZOLE 1% CR 15 GM TUBE EXT SCH ×2 (09:00→20:00)
[2016-07-04] MEDS: FLUOXETINE HCL 20 MG CAP PO SCH (09:00)
[2016-07-04] MEDS: MULTIVITAMIN TAB PO SCH (09:01)
[2016-07-04] MEDS: CHOLECALCIFEROL 1000 INTER.UNIT TAB PO SCH (09:01)
[2016-07-04] MEDS: GABAPENTIN 100 MG CAP PO SCH ×2 (09:01→19:57)
[2016-07-04] MEDS: TRAZODONE HCL 50 MG TAB PO SCH ×2 (09:04→19:57)
[2016-07-04] MEDS: HEPARIN SOD 5000 UNIT/0.5 ML CARP SQ SCH ×2 (09:07→20:51)
--- NOTE | 2016-07-04 09:27 | Infectious Disease Progress Nt ---
Progress Note Date of Service Jul 04, 2016. Subjective Pt evaluation today including: conversation w/ patient, physical exam, chart review, lab review, review of studies, conversation w/ oracle application consultant (Dr. East), review of inpatient medication list Creatinine this morning is slightly more elevated this morning at 2.20. She had a retroperitoneal U/S completed this morning which showed no renal masses, but did show minimal dilatation of the right collecting system with mild to moderate left-sided hydronephrosis. She is feeling well this morning and states that she has had no continued SOB. Her left hip pain is bearable. All Other Systems: Reviewed and Negative Medications Current Inpatient Medications Medications (Trade) Dose Ordered Sig/Doug Route Start Time Stop Time Status Last Admin Dose Admin Acetaminophen (Tylenol Tab) 650 mg Q4H PRN PO 06/23/16 21:30 07/23/16 21:29 Ascorbic Acid (Vitamin C Tab) 1,000 mg BID PO 06/24/16 09:00 07/24/16 08:59 07/04/16 09:00 1,000 MG Bisacodyl (Dulcolax Supp) 10 mg UD PRN GA 06/23/16 21:30 07/23/16 21:29 Cholecalciferol (Vitamin D Tab) 1,000 inter.unit DAILY PO 06/24/16 09:00 07/24/16 08:59 07/04/16 09:01 1,000 INTER.UNIT Clotrimazole (Lotrimin 1% Crm) 1 appln BID EXT 06/24/16 09:00 07/24/16 08:59 07/04/16 09:00 1 APPLN Docusate Sodium (coLACE CAP) 200 mg BID PO 06/24/16 09:00 07/24/16 08:59 07/04/16 08:59 200 MG Fluoxetine HCl (Prozac Cap) 40 mg QAM PO 06/24/16 09:00 07/24/16 08:59 07/04/16 09:00 40 MG Gabapentin (Neurontin Cap) 100 mg BID PO 06/24/16 09:00 07/24/16 08:59 07/04/16 09:01 100 MG Magnesium Hydroxide (Milk Of Magnesia Susp) 30 ml UD PRN PO 06/23/16 21:30 07/23/16 21:29 Multivitamins (Multivitamin Tab) 1 tab DAILY PO 06/24/16 09:00 07/24/16 08:59 07/04/16 09:01 1 TAB Oxycodone/ Acetaminophen (Percocet 5-325MG Tab) 1 tab Q6H PRN PO 06/23/16 21:30 07/07/16 21:29 07/02/16 21:42 1 TAB Sodium Biphosphate/ Sodium Phosphate (Fleet Enema) 133 ml UD PRN GA 06/23/16 21:30 07/23/16 21:29 Tramadol HCl (Ultram Tab) 50 mg Q6H PRN PO 06/23/16 21:30 07/23/16 21:29 07/02/16 22:46 50 MG Trazodone HCl (Desyrel Tab) 50 mg BID PO 06/24/16 09:00 07/24/16 08:59 07/04/16 09:04 50 MG Calcium/Vitamin D (Caltrate Plus Tab) 1 tab DAILY PO 06/24/16 09:00 07/24/16 08:59 07/04/16 08:59 1 TAB Polyethylene (Miralax Powder Packet) 17 gm DAILY PRN PO 06/23/16 21:30 07/23/16 21:29 Ondansetron HCl (Zofran Inj) 4 mg Q6H PRN IV 06/23/16 21:30 07/23/16 21:29 07/02/16 18:19 4 MG Cyanocobalamin (Vitamin B-12 Tab) 1,000 mcg QAM PO 06/30/16 09:00 07/30/16 08:59 07/04/16 08:59 1,000 MCG Heparin Sodium (Porcine) (Heparin Sq 5000 Unit/0.5ml) 5,000 unit Q12 SQ 06/29/16 21:00 07/29/16 20:59 07/04/16 09:07 5,000 UNIT Duloxetine HCl 20 mg 20 mg QAM PO 07/02/16 09:00 08/01/16 08:59 07/04/16 09:00 20 MG Clindamycin Phosphate/Dextrose (Cleocin Iv/ Dextrose Add-[place] 50ML) 54 ml @ 100 mls/hr Q8 IV 07/01/16 15:00 07/11/16 14:59 07/04/16 05:40 100 MLS/HR Lactobacillus Acidophilus (Floranex Tab) 4 tab TIDM PO 07/02/16 08:30 08/01/16 08:29 07/04/16 08:59 4 TAB Levofloxacin (Levaquin Tab) 750 mg Q2D@1100 PO 07/02/16 15:30 07/09/16 15:29 07/02/16 16:21 750 MG Levofloxacin (Consult) 1 ea UD PRN N/A 07/02/16 15:15 08/01/16 15:14 Heparin Sodium (Porcine) (Heparin 10 Unit/ ml 5 ml Flush) 5 ml PRN PRN FLUSH 07/02/16 19:45 08/01/16 19:44 07/04/16 08:34 5 ML Objective Vital Signs Date Time Temp Pulse Resp B/P Pulse Ox O2 Delivery O2 Flow Rate FiO2 07/04/16 07:56 98 Nasal Cannula 4.0 07/04/16 07:37 36.6 75 16 113/56 98 Nasal Cannula 4.0 07/04/16 07:30 Nasal Cannula 3.0 07/04/16 00:30 Nasal Cannula 3.0 07/03/16 23:41 36.5 85 18 93/51 98 Nasal Cannula 2.0 07/03/16 16:00 36.5 65 18 115/66 100 Nasal Cannula 3.0 07/03/16 15:45 Nasal Cannula 3.0 Physical Exam General Appearance: WD/WN, no apparent distress Eyes: normal inspection, sclerae normal ENT: hearing grossly normal Neck: supple, trachea midline Respiratory/Chest: chest non-tender, no respiratory distress, no accessory muscle use, + crackles (very mild left upper lung), + pertinent finding (nasal cannula O2 in place) Cardiovascular: regular rate, rhythm Abdomen: normal bowel sounds Neurologic/Psychiatric: alert, normal mood/affect Skin: normal color, warm/dry, no rash Laboratory Results Last 24 Hours Test 07/04/16 05:30 Sodium Level 144 mmol/L Potassium Level 3.6 mmol/L Chloride Level 104 mmol/L Carbon Dioxide Level 31 mmol/L Anion Gap 9.0 mmol/L Blood Urea Nitrogen 16 mg/dl Creatinine 2.20 mg/dl Est Creatinine Clear Calc Drug Dose 19.4 ml/min Estimated GFR () 22.8 Estimated GFR (Non- 19.6 BUN/Creatinine Ratio 7.3 Random Glucose 88 mg/dl Calcium Level 8.0 mg/dl Assessment and Plan Patient with left septic post-operative seroma with coag-negative staph and possible left lower lobe pneumonia. She is currently on IV Clindamycin and likely will need to continue this for at least 2 more weeks of abx therapy. She continues to have some mild erythema around the bandage and incision. Patient is anticipating D/C to rehab. She was also placed Levaquin for concerns of pneumonia. She appears to be improved today. Therefore, would recommend completing 7 days. PROVIDER ADDENDUM: Patient reviewed with Ms. Elmore. Agree with above assessment.
--- NOTE | 2016-07-04 10:54 | DIAGNOSTIC IMAGING REPORT ---
CT SCAN OF THE ABDOMEN AND PELVIS WITHOUT IV CONTRAST CLINICAL HISTORY: Hydronephrosis. COMPARISON STUDY: Abdominal CT dated 09/29/2006. Renal ultrasound dated 07/03/2016. TECHNIQUE: CT scan of the abdomen and pelvis is performed from the lung bases to the proximal femora. Images are reviewed in the axial, sagittal, and coronal planes. IV contrast was not administered for this examination. Automated dose control exposure was utilized. The examination is significantly degraded by streak artifact from the patient's arms which could not be elevated above the abdomen or pelvis as well as motion artifact. CT DOSE: 1801.46 mGy.cm FINDINGS: Lung bases: The heart is normal in size and without pericardial effusion. There is bibasilar consolidation. Chronic interstitial changes are present at both lung bases. Small pleural effusions are identified, left larger than right. A right PICC line is in place. Liver: The unenhanced liver is normal in size, contour, and attenuation. There is mild central intrahepatic biliary ductal dilatation. Gallbladder: Not identified and presumed surgically absent. Spleen: Normal in size and attenuation. Pancreas: Atrophic. Adrenal glands: Unremarkable. Kidneys: The unenhanced kidneys are atrophic and without hydronephrosis. Parapelvic cysts are again seen in both kidneys. This is similar to the 2007 examination. There are no renal calculi identified. There is no evidence of contour deforming renal mass lesion. Abdominal vasculature: The abdominal aorta is normal in course and caliber noting mild to moderate atherosclerotic calcification. Bowel: The small bowel and colon are normal in course and caliber. There is moderate sigmoid diverticulosis without CT evidence of acute diverticulitis. The appendix is not visualized. Peritoneum: There is no intraperitoneal free air or abdominal ascites. Lymphadenopathy: None. Pelvic viscera: Streak artifact from orthopedic hardware in the left femur degrades assessment of the pelvis. The bladder, uterus, and adnexa are normal as visualized. Numerous calcified phleboliths are seen in the pelvis. Skeletal structures: The skeletal structures are osteopenic. There is mild to moderate lumbosacral spondylosis and scoliosis. No lytic or blastic lesions are seen. Postoperative change is noted in the left femur. There are healed left-sided rib fractures. Soft tissues: There is body wall edema. There is an incision site with loculated subcutaneous fluid seen overlying the left hip. There are foci of centimeters gas. The pocket of fluid measures approximately 9 x 2 x 3.5 cm. IMPRESSION: 1. Significant streak and motion artifact degraded examination 2. There are no acute infectious or inflammatory findings in the abdomen or pelvis. 3. There is no hydronephrosis. Bilateral parapelvic renal cysts are identified and unchanged from the 2007 examination. 4. Moderate sigmoid diverticulosis without CT evidence of acute diverticulitis. 5. There is bibasilar consolidation and small pleural effusions. Cortical clinically for evidence of aspiration pneumonitis/pneumonia. 6. Postoperative change is seen overlying the left femur. There is gas and fluid identified within the simultaneous fat along the incision site. This likely represents seroma/hematoma. Correlate clinically for evidence of abscess. 7. Additional changes as detailed above. Electronically signed by: Dennys Marrero M.D. 07/04/2016 10:52 AM Dictated Date/Time: 07/04/2016 10:43 AM
[2016-07-04] MEDS: LEVOFLOXACIN 750 MG TAB PO SCH (11:15)
[2016-07-04] MEDS: SODIUM CHLORIDE 0.9% 1000ML 1,000 ML IV SCH (15:02)
[2016-07-04 15:23] VITALS: BP 131/70; PULSE 85; TEMP 36.3; O2SAT 100
[2016-07-04 16:27] LABS: URINE APPEARANCE CLOUDY (CLEAR); URINE BILIRUBIN NEG (NEG); URINE COLOR YELLOW; URINE EPITHELIAL CELL AUTO >30 /lpf (0-5); URINE NITRITE NEG (NEG); URINE SPECIFIC GRAVITY 1.002 (1.000-1.030); UROBILINOGEN NEG (NEG)
[2016-07-04 16:29] LABS: MANUAL MICROSCOPIC REQUIRED? NO; REVIEW REQ? YES
--- NOTE | 2016-07-04 17:58 | PROGRESS NOTE ---
DATE: 07/04/2016 CHIEF COMPLAINT: Status post I\T\D of an infected seroma of the left hip postop day #7. PROGRESS: Homa was seen and examined at bedside today. She is awake and alert but she is unaware of who I am and what procedure she has had done. Her stay has been longer due to a renal failure. Overall, she says she has not had any pain and is not having any complaints. PHYSICAL EXAMINATION: The wound was inspected, there is still some cellulitis in the area but it actually looks much better than did preoperatively. There is a very small amount of drainage still coming from the center of the wound, but the majority of the wound looks like it is healing nicely. She is neurovascularly intact. I see no signs of recurrence of the infected seroma at this point. LABORATORY DATAL: Micro: The intraoperative cultures came back as coag negative staph, which was sensitive to vancomycin and clindamycin. IMPRESSION: Status post incision and drainage of the left hip seroma postop day #7. PLAN: She has been very slow to work with occupational therapy. She pretty much sits on the edge of the bed. They have changed her vancomycin to clindamycin because of her renal failure. Overall, the infection does seem to be improving from where we were last week. She could be weightbearing as tolerated on her left hip, once I remove the sutures about 2-3 weeks from the day of surgery. She is orthopedically stable for discharge at this time and I will see her in my office 2-3 weeks from the day of surgery. My office phone number is [phone].
[2016-07-04] MEDS: OXYCODONE/ACETAMINOPHEN 5-325 TAB PO PRN (19:58)
--- NOTE | 2016-07-04 20:09 | Progress Note ---
Subjective Date of Service: Jul 04, 2016. Subjective Pt evaluation today including: conversation w/ patient, conversation w/ family (daughter by phone), physical exam, chart review, lab review, review of studies (renal u/s, CT abd/pelvis), conversation w/ safety consultant (nephrology, urology), review of inpatient medication list Pain: left hip - minimal PO Intake: fair per staff Voiding: no voiding problems no major issues overnight she again denies cough, sob, or wheezing denies abd pain although had an episode of nausea just prior to my arrival; staff state she did NOT vomit Problem List Medical Problems: (1) Cellulitis of left hip Status: Acute (2) Frequent falls Status: Acute (3) Hip fracture, left Status: Acute (4) Left arm cellulitis Status: Acute (5) Lymphedema of upper extremity Status: Acute (6) Postoperative wound infection Status: Acute (7) Weakness Status: Acute Review of Systems Constitutional: No fever Respiratory: No cough, No shortness of breath, No sputum, No wheezing Cardiac: No chest pain, No orthopnea Abdomen: + nausea, No pain Objective Vital Signs Date Time Temp Pulse Resp B/P Pulse Ox O2 Delivery O2 Flow Rate FiO2 07/04/16 15:23 36.3 85 18 131/70 100 Nasal Cannula 3.0 07/04/16 07:56 98 Nasal Cannula 4.0 07/04/16 07:37 36.6 75 16 113/56 98 Nasal Cannula 4.0 07/04/16 07:30 Nasal Cannula 3.0 07/04/16 00:30 Nasal Cannula 3.0 07/03/16 23:41 36.5 85 18 93/51 98 Nasal Cannula 2.0 Physical Exam General Appearance: no apparent distress ENT: pharynx normal Neck: no JVD Respiratory/Chest: no respiratory distress, no accessory muscle use, + rales ( continue left anterior chest & both bases --- no change from prior exams) Cardiovascular: regular rate, rhythm, no gallop, no murmur Abdomen: normal bowel sounds, non tender, soft, no organomegaly Extremities: no pedal edema Neurologic/Psychiatric: alert Skin: + pertinent finding (cellulitis left hip region RESOLVED; dressing intact ; thigh swelling improved) Laboratory Results Last 24 Hours Test 07/04/16 05:30 07/04/16 15:26 Sodium Level 144 mmol/L Potassium Level 3.6 mmol/L Chloride Level 104 mmol/L Carbon Dioxide Level 31 mmol/L Anion Gap 9.0 mmol/L Blood Urea Nitrogen 16 mg/dl Creatinine 2.20 mg/dl Est Creatinine Clear Calc Drug Dose 19.4 ml/min Estimated GFR () 22.8 Estimated GFR (Non- 19.6 BUN/Creatinine Ratio 7.3 Random Glucose 88 mg/dl Calcium Level 8.0 mg/dl Urine Color YELLOW Urine Appearance CLOUDY Urine pH 5.0 Urine Specific [place] 1.002 Urine Protein NEG Urine Glucose (UA) NEG Urine Ketones NEG Urine Occult Blood NEG Urine Nitrite NEG Urine Bilirubin NEG Urine Urobilinogen NEG Urine Leukocyte Esterase TRACE Urine WBC (Auto) 5-10 /hpf Urine RBC (Auto) 0-4 /hpf Urine Hyaline Casts (Auto) 0 /lpf Urine Epithelial Cells (Auto) >30 /lpf Urine Bacteria (Auto) NEG Urine Pathogenic Casts /lpf Urine Yeast (Auto) Assessment and Plan 85yo female with: 1. left hip post-op infected seroma with cellulitis s/p I/D in the OR - again stable, improved. Intra-op cultures with coag negative staph. Cont IV clindamycin. Plan for minimum 2 weeks. Appreciate ID and ortho consults. 2. acute kidney injury - suspect 2nd to vancomycin, but despite time and hydration Cr has not improved. She could have had ATN from hypotension during her recent surgery as well. Checked renal u/s and there is evidence of hydronephrosis. CT abd/pelvis without stone or mass or other pathology; oddly there was no hydronephrosis on the CT. u/a without casts I have asked nephrology, Dr. Esposito, to see in consult for any other recommendations. Cont gentle hydration. repeat bmp am. 3. chronic resp failure - stable on home O2 amount. 2nd to ILD? Does she have radiation fibrosis from prior xrt for breast ca? 4. DVT proph - heparin BID + SCDs. 5. PHAM - continue HS CPAP. 6. suspected left sided pneumonia - day #3 levaquin for gram negative coverage. Clindamycin will provide anaerobe coverage and some MRSA coverage. 7. FEN - eating is fair, lytes are stable, cont NS hydration due to #2 above. 8. depression - cont prozac + cymbalta. Tolerating latter. Increase cymbalta dose in 1-2 weeks. 9. dispo - [facility] 10. nausea - could have stress gastritis - add PPI. daughter updated by phone on 07/02/16 and 07/04/16 Continued [facility] stay due to: ambulation difficulties, multiple IV medications needed, other (BRYN - can d/c to SNF once Cr is improving ) Discharge planning: senior care facility
[2016-07-04] MEDS ORDERED: PANTOprazole SOD 40 MG TAB PO ONE (20:30)
[2016-07-04] MEDS: ONDANSETRON INJ 2 MG/ML 2 ML VIAL IV PRN (20:52)
[2016-07-04 23:35] VITALS: BP 112/45; PULSE 80; TEMP 36.8; O2SAT 95
[2016-07-05] MEDS: SODIUM CHLORIDE 0.9% 1000ML 1,000 ML IV SCH (03:42)
[2016-07-05] MEDS: CLINDAMYCIN IV 600 MG in DEXTROSE 5% ADD-VANTAGE 50ML 50 ML IV SCH ×3 (05:32→21:15)
[2016-07-05 06:35] LABS: BUN/CREATININE RATIO 7.3 (10-20); CALCIUM 7.8 mg/dl (8.5-10.1); CREATININE 2.1 mg/dl (0.60-1.20); POTASSIUM 3.7 mmol/L (3.5-5.1)
[2016-07-05 07:25] VITALS: BP 132/74; PULSE 80; TEMP 36.6; O2SAT 90
[2016-07-05] MEDS: LACTOBACILLUS ACIDOPHILUS (FLORANEX) TAB PO SCH ×3 (08:30→18:20)
[2016-07-05] MEDS ORDERED: PANTOprazole SOD 40 MG TAB PO SCH (09:00)
[2016-07-05] MEDS: DULOXETINE HCL 20 MG CAP PO SCH (10:46)
[2016-07-05] MEDS: GABAPENTIN 100 MG CAP PO SCH ×2 (10:47→21:15)
[2016-07-05] MEDS: FLUOXETINE HCL 20 MG CAP PO SCH (10:48)
[2016-07-05] MEDS: MULTIVITAMIN TAB PO SCH (10:48)
[2016-07-05] MEDS: ASCORBIC ACID 500 MG TAB PO SCH (10:49)
[2016-07-05] MEDS: TRAZODONE HCL 50 MG TAB PO SCH ×2 (10:49→21:15)
[2016-07-05] MEDS: CYANOCOBALAMIN 500 MCG TAB (VIT B-12) PO SCH (10:50)
[2016-07-05] MEDS: CHOLECALCIFEROL 1000 INTER.UNIT TAB PO SCH (10:50)
[2016-07-05] MEDS: CALCIUM 600MG + VIT D 400 IU TAB PO SCH (10:50)
[2016-07-05] MEDS: DOCUSATE SODIUM 100 MG CAP PO SCH ×2 (10:51→21:14)
[2016-07-05] MEDS: HEPARIN SOD 5000 UNIT/0.5 ML CARP SQ SCH ×2 (10:55→21:17)
--- NOTE | 2016-07-05 11:14 | Nephrology Consultation ---
Nephrology Consultation Date & Providers Date of Consultation: Jul 05, 2016. Primary Care Provider: Rehab,[facility] Nursing and Referring Provider: Reason for Consultation Evaluation of nonoliguric acute kidney injury History of Present Illness Ms. Maldonado is an 85 year old white female who is seen at the request of Dr. Rojo for evaluation of nonoliguric acute kidney injury. Medical records in the hospital EMR were reviewed and are summarized as follows: The patient has a history of pernicious anemia, PHAM, depression, colon & breast cancer. In she suffered a mechanical fall. She fractured her left hip and required L NIK. On 06/23/16 she was admitted to the hospital with an infected left hip seroma. Cultures grew out coagulase negative staphylococcus. The patient was treated with IV Vancomycin therapy and required surgical I&D of the left hip . Intraoperatively blood pressure fluctuated from 180 mm Hg down to 90 mm Hg systolic. The patient remained on IV Vancomycin therapy. She received 1 g IV twice daily. Trough levels were 18 - 28 mcg/ml. Vancomycin was discontinued 06/28 after 6 days of therapy when it was noted that the creatinine value had increased from 0.6 to 1.1. There was no associated skin rash. Serum creatinine has now stabilized at 2.2. The patient remains nonoliguric. Urinalysis is negative for blood or protein. There were a few leukocytes. Urine microscopy has been negative for casts. Renal US films reviewed. Patient has mild dilation of both collecting systems. Abdominal CT revealed bilateral parapelvic cysts without hydronephrosis. This was reported to be a stable finding dating back to a 2007 study. The patient's current medical regimen includes clindamycin and levaquin as antibiotics. She is on protonix for GERD. She has prn Fleets enemas ordered. She is taking vitamin C 1000 mg BID as well. Past Medical/Surgical History Medical: # Pernicious anemia # PHAM # Depression # Colon CA s/p partial colectomy # Breast CA s/p lumpectomy Surgical: # Partial colectomy # Lumpectomy # L NIK Allergies Coded Allergies: No Known Allergies (Unverified , 04/11/16) PT DENIES PREVIOUSLY PROFILED SULFA ALLERGY? Inpatient Medications Current Inpatient Medications Medications (Trade) Dose Ordered Sig/Doug Route Start Time Stop Time Status Last Admin Dose Admin Acetaminophen (Tylenol Tab) 650 mg Q4H PRN PO 06/23/16 21:30 07/23/16 21:29 Ascorbic Acid (Vitamin C Tab) 1,000 mg BID PO 06/24/16 09:00 07/24/16 08:59 07/04/16 19:57 1,000 MG Bisacodyl (Dulcolax Supp) 10 mg UD PRN NV 06/23/16 21:30 07/23/16 21:29 Cholecalciferol (Vitamin D Tab) 1,000 inter.unit DAILY PO 06/24/16 09:00 07/24/16 08:59 07/04/16 09:01 1,000 INTER.UNIT Clotrimazole (Lotrimin 1% Crm) 1 appln BID EXT 06/24/16 09:00 07/24/16 08:59 07/04/16 20:00 1 APPLN Docusate Sodium (coLACE CAP) 200 mg BID PO 06/24/16 09:00 07/24/16 08:59 07/04/16 19:56 200 MG Fluoxetine HCl (Prozac Cap) 40 mg QAM PO 06/24/16 09:00 07/24/16 08:59 07/04/16 09:00 40 MG Gabapentin (Neurontin Cap) 100 mg BID PO 06/24/16 09:00 07/24/16 08:59 07/04/16 19:57 100 MG Magnesium Hydroxide (Milk Of Magnesia Susp) 30 ml UD PRN PO 06/23/16 21:30 07/23/16 21:29 Multivitamins (Multivitamin Tab) 1 tab DAILY PO 06/24/16 09:00 07/24/16 08:59 07/04/16 09:01 1 TAB Oxycodone/ Acetaminophen (Percocet 5-325MG Tab) 1 tab Q6H PRN PO 06/23/16 21:30 07/07/16 21:29 07/04/16 19:58 1 TAB Sodium Biphosphate/ Sodium Phosphate (Fleet Enema) 133 ml UD PRN NV 06/23/16 21:30 07/23/16 21:29 Tramadol HCl (Ultram Tab) 50 mg Q6H PRN PO 06/23/16 21:30 07/23/16 21:29 07/02/16 22:46 50 MG Trazodone HCl (Desyrel Tab) 50 mg BID PO 06/24/16 09:00 07/24/16 08:59 07/04/16 19:57 50 MG Calcium/Vitamin D (Caltrate Plus Tab) 1 tab DAILY PO 06/24/16 09:00 07/24/16 08:59 07/04/16 08:59 1 TAB Polyethylene (Miralax Powder Packet) 17 gm DAILY PRN PO 06/23/16 21:30 07/23/16 21:29 Ondansetron HCl (Zofran Inj) 4 mg Q6H PRN IV 06/23/16 21:30 07/23/16 21:29 07/04/16 20:52 4 MG Cyanocobalamin (Vitamin B-12 Tab) 1,000 mcg QAM PO 06/30/16 09:00 07/30/16 08:59 07/04/16 08:59 1,000 MCG Heparin Sodium (Porcine) (Heparin Sq 5000 Unit/0.5ml) 5,000 unit Q12 SQ 06/29/16 21:00 07/29/16 20:59 07/04/16 20:51 5,000 UNIT Duloxetine HCl 20 mg 20 mg QAM PO 07/02/16 09:00 08/01/16 08:59 07/04/16 09:00 20 MG Clindamycin Phosphate/Dextrose (Cleocin Iv/ Dextrose Add-[place] 50ML) 54 ml @ 100 mls/hr Q8 IV 07/01/16 15:00 07/11/16 14:59 07/05/16 05:32 100 MLS/HR Lactobacillus Acidophilus (Floranex Tab) 4 tab TIDM PO 07/02/16 08:30 08/01/16 08:29 07/04/16 17:51 4 TAB Levofloxacin (Levaquin Tab) 750 mg Q2D@1100 PO 07/02/16 15:30 07/09/16 15:29 07/04/16 11:15 750 MG Levofloxacin (Consult) 1 ea UD PRN N/A 07/02/16 15:15 08/01/16 15:14 Heparin Sodium (Porcine) 5 ml 5 ml PRN PRN FLUSH 07/02/16 19:45 08/01/16 19:44 07/04/16 14:50 5 ML Sodium Chloride (Nss 1000ml) 1,000 ml @ 75 mls/hr [id number] IV 07/04/16 15:00 08/03/16 14:59 07/05/16 03:42 75 MLS/HR Pantoprazole Sodium (Protonix Tab) 40 mg QAM PO 07/05/16 09:00 08/04/16 08:59 Family History Cancer Diabetes mellitus Negative for CKD/ESRD Social History Smoking Status: Never Smoker Smokeless Tobacco Use: No Alcohol Use: none Drug Use: none Marital Status: Housing Status: lives alone, [employer] Occupation: retired . Resides at local [employer]. Never a smoker Review of Systems Constitutional: No fever Respiratory: No cough Cardiovascular: No chest pain Abdomen: No diarrhea, No pain Genitourinary - Female: No dysuria, No hematuria Integumentary: No rash A complete review of systems was performed. Pertinent positives are noted above. All other systems are negative. Physical Exam Date Time Temp Pulse Resp B/P Pulse Ox O2 Delivery O2 Flow Rate FiO2 07/05/16 09:15 CPAP 07/05/16 07:25 36.6 80 20 132/74 90 CPAP 3.0 07/04/16 23:35 36.8 80 18 112/45 95 CPAP 2.0 07/04/16 19:58 Nasal Cannula 07/04/16 15:23 36.3 85 18 131/70 100 Nasal Cannula 3.0 General Appearance: no apparent distress Head: normocephalic, atraumatic Eyes: PERRL, EOMI Neck: no adenopathy Respiratory/Chest: lungs clear Cardiovascular: regular rate, rhythm Abdomen/GI: normal bowel sounds, non tender, soft Extremities/Musculoskelatal: no calf tenderness, no pedal edema Neurologic/Psych: alert, oriented x 3 Laboratory Results Last 24 Hours Test 07/04/16 15:26 07/05/16 05:35 Urine Color YELLOW Urine Appearance CLOUDY Urine pH 5.0 Urine Specific [place] 1.002 Urine Protein NEG Urine Glucose (UA) NEG Urine Ketones NEG Urine Occult Blood NEG Urine Nitrite NEG Urine Bilirubin NEG Urine Urobilinogen NEG Urine Leukocyte Esterase TRACE Urine WBC (Auto) 5-10 /hpf Urine RBC (Auto) 0-4 /hpf Urine Hyaline Casts (Auto) 0 /lpf Urine Epithelial Cells (Auto) >30 /lpf Urine Bacteria (Auto) NEG Urine Pathogenic Casts /lpf Urine Yeast (Auto) Sodium Level 147 mmol/L Potassium Level 3.7 mmol/L Chloride Level 108 mmol/L Carbon Dioxide Level 30 mmol/L Anion Gap 9.0 mmol/L Blood Urea Nitrogen 15 mg/dl Creatinine 2.10 mg/dl Est Creatinine Clear Calc Drug Dose 20.3 ml/min Estimated GFR () 24.1 Estimated GFR (Non- 20.8 BUN/Creatinine Ratio 7.3 Random Glucose 87 mg/dl Calcium Level 7.8 mg/dl Impression (1) Acute kidney injury (2) Seroma (3) Cellulitis of left hip (4) Pyuria, sterile Patient has nonoliguric BRYN. She may have suffered a hemodynamic injury at the time of surgery and vancomycin nephrotoxicity. Kidney function is stabilizing at this time. Volume status and electrolyte balance remain acceptable. Urinalysis was negative for blood or protein. Urine microscopy shows sterile pyuria but no casts. Renal US did show mild dilation of bilateral collecting systems, however, abdominal CT revealed stable bilateral parapelvic cysts. There was no hydronephrosis. Recommendations -- Agree with discontinuation of Vancomycin therapy -- Vancomycin is taken up by proximal tubular cells and can cause proximal tubular injury. This may take several days to weeks to recover. Nonoliguric status is a good prognostic sign -- Monitor serial PRP -- OK to heplock IVF and encourage oral fluid intake -- Recommend consolidating antibiotic regimen (stop levaquin?) -- Recommend d/c PPI as this can be associated w/ AIN. Patient has sterile pyuria on UA -- Avoid Fleets enemas as this may result in hyperphosphatemia in the setting of BRYN -- Recommend d/c vitamin C due to risk of oxaluria in the setting of BRYN
[2016-07-05] MEDS: CLOTRIMAZOLE 1% CR 15 GM TUBE EXT SCH ×2 (15:00→21:15)
[2016-07-05 15:36] VITALS: BP 136/91; PULSE 84; TEMP 36.4; O2SAT 95
--- NOTE | 2016-07-05 16:49 | Progress Note ---
Subjective Date of Service: Jul 05, 2016. Subjective Pt evaluation today including: conversation w/ patient, physical exam, chart review, lab review Pain: denies hip pain, abd pain, chest pain Voiding: no voiding problems no issues overnight patient is sitting in chair at bedside comfortably reports mild cough only but no dyspnea Problem List Medical Problems: (1) Cellulitis of left hip Status: Acute (2) Frequent falls Status: Acute (3) Hip fracture, left Status: Acute (4) Left arm cellulitis Status: Acute (5) Lymphedema of upper extremity Status: Acute (6) Postoperative wound infection Status: Acute (7) Weakness Status: Acute Review of Systems Respiratory: No dyspnea on exertion, No shortness of breath Cardiac: No chest pain, No orthopnea Abdomen: No diarrhea, No pain Objective Vital Signs Date Time Temp Pulse Resp B/P Pulse Ox O2 Delivery O2 Flow Rate FiO2 07/05/16 15:36 36.4 84 18 136/91 95 Nasal Cannula 3.0 07/05/16 09:15 CPAP 07/05/16 07:25 36.6 80 20 132/74 90 CPAP 3.0 07/04/16 23:35 36.8 80 18 112/45 95 CPAP 2.0 07/04/16 19:58 Nasal Cannula Physical Exam General Appearance: no apparent distress ENT: pharynx normal (no thrush) Neck: no JVD Respiratory/Chest: no respiratory distress, no accessory muscle use, + decreased breath sounds (both bases), + crackles (left anterior chest), + rales (b/l bases - no change) Cardiovascular: regular rate, rhythm, no gallop, no murmur Abdomen: normal bowel sounds, non tender, soft, no organomegaly Extremities: no pedal edema, + pertinent finding (left thigh swelling again improved) Neurologic/Psychiatric: alert, oriented x 3 Skin: + pertinent finding (cellulitis left hip resolved) Laboratory Results Last 24 Hours Test 07/05/16 05:35 Sodium Level 147 mmol/L Potassium Level 3.7 mmol/L Chloride Level 108 mmol/L Carbon Dioxide Level 30 mmol/L Anion Gap 9.0 mmol/L Blood Urea Nitrogen 15 mg/dl Creatinine 2.10 mg/dl Est Creatinine Clear Calc Drug Dose 20.3 ml/min Estimated GFR () 24.1 Estimated GFR (Non- 20.8 BUN/Creatinine Ratio 7.3 Random Glucose 87 mg/dl Calcium Level 7.8 mg/dl Assessment and Plan 85yo female with: 1. left hip post-op infected seroma with cellulitis s/p I/D in the OR - Intra-op cultures with coag negative staph. Cont IV clindamycin. Plan for minimum 2 weeks. Today is day #5 of clindamycin. Appreciate ID and ortho consults. 2. acute kidney injury - suspect 2nd to vancomycin; cannot rule out element of ATN although less likely (no casts, etc on microscopy). Checked renal u/s and there was evidence of hydronephrosis. CT abd/pelvis without stone or mass or other pathology; oddly there was no hydronephrosis on the CT. Appreciate Dr. Esposito's consultation. Cr stable today at 2.1. May take another 1-2 weeks to see creatinine recovery. BMP in am. 3. chronic resp failure - stable on home O2 amount. 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 4. DVT proph - heparin BID + SCDs. 5. PHAM - continue HS CPAP. 6. suspected left sided pneumonia - day #4 levaquin for gram negative coverage. Clindamycin will provide anaerobe coverage and some MRSA coverage. 7. FEN - eating is fair, lytes are stable, stop the fluids. BMP am. 8. depression - cont prozac + cymbalta. Tolerating latter. Increase cymbalta dose in 1 week. 9. dispo - [facility] 10. nausea - resolved. stop PPI at Dr. Esposito's request. start H2 amrita. daughter updated by phone on 07/02/16 and 07/04/16 hopefully d/c to [facility] tomorrow Continued [facility] [place] stay due to: ambulation difficulties, multiple IV medications needed, other (BRYN - can d/c to SNF once Cr is improving ) Discharge planning: detention facility
[2016-07-05] MEDS: OXYCODONE/ACETAMINOPHEN 5-325 TAB PO PRN (21:57)
[2016-07-05] MEDS: TRAMADOL HCL 50 MG TAB PO PRN (23:51)
[2016-07-06 00:16] VITALS: BP 112/57; PULSE 85; TEMP 36.9; O2SAT 95
[2016-07-06] MEDS: CLINDAMYCIN IV 600 MG in DEXTROSE 5% ADD-VANTAGE 50ML 50 ML IV SCH ×3 (05:58→21:09)
[2016-07-06 07:11] LABS: HEMATOCRIT 30.9 % (37-47); MEAN CELL VOLUME 93.9 fL (80-100); MEAN CORPUSCULAR HEMOGLOBIN 30.4 pg (25-34); MEAN CORPUSCULAR HGB CONC 32.4 g/dl (32-36); MEAN PLATELET VOLUME 11.4 fL (7.4-10.4); PLATELET COUNT 319 K/uL (130-400); RED BLOOD COUNT 3.29 M/uL (4.2-5.4); WHITE BLOOD COUNT 7.57 K/uL (4.8-10.8)
[2016-07-06 07:26] VITALS: BP 174/93; PULSE 83; TEMP 36.6; O2SAT 93
[2016-07-06 07:48] LABS: CALCIUM 7.9 mg/dl (8.5-10.1); POTASSIUM 3.4 mmol/L (3.5-5.1)
[2016-07-06] MEDS ORDERED: RANITIDINE HCL 150 MG TAB PO SCH (09:00)
[2016-07-06] MEDS: DOCUSATE SODIUM 100 MG CAP PO SCH ×2 (09:06→20:20)
[2016-07-06] MEDS: MULTIVITAMIN TAB PO SCH (09:06)
[2016-07-06] MEDS: CALCIUM 600MG + VIT D 400 IU TAB PO SCH (09:06)
[2016-07-06] MEDS: CYANOCOBALAMIN 500 MCG TAB (VIT B-12) PO SCH (09:06)
[2016-07-06] MEDS: LACTOBACILLUS ACIDOPHILUS (FLORANEX) TAB PO SCH ×3 (09:06→17:09)
[2016-07-06] MEDS: DULOXETINE HCL 20 MG CAP PO SCH (09:07)
[2016-07-06] MEDS: GABAPENTIN 100 MG CAP PO SCH ×2 (09:07→20:20)
[2016-07-06] MEDS: CHOLECALCIFEROL 1000 INTER.UNIT TAB PO SCH (09:07)
[2016-07-06] MEDS: TRAZODONE HCL 50 MG TAB PO SCH ×2 (09:07→20:19)
[2016-07-06] MEDS: CLOTRIMAZOLE 1% CR 15 GM TUBE EXT SCH ×2 (09:08→20:16)
[2016-07-06] MEDS: FLUOXETINE HCL 20 MG CAP PO SCH (09:08)
[2016-07-06] MEDS: HEPARIN SOD 5000 UNIT/0.5 ML CARP SQ SCH ×2 (09:11→20:24)
[2016-07-06] MEDS ORDERED: POTASSIUM CHLORIDE 10 MEQ TABCR PO STA (09:39)
--- NOTE | 2016-07-06 10:24 | Nephrology Progress Note ---
Nephrology Progress Note Date of Service Jul 06, 2016. Chief Complaint Follow up ealuation of nonoliguric acute kidney injury Subjective Ms. Maldonado was seen & examined in her hospital room this morning. She denies fever, left hip discomfort, dyspnea, chest discomfort,nausea or flank pain. She reports brisk urine output. She hopes to return to [facility] soon. Review of Systems Constitutional: No fever Cardiovascular: No chest pain Respiratory: No dyspnea at rest Abdomen: No nausea, No pain Genitourinary - Female: No dysuria, No gross hematuria Extremities: No leg edema A complete review of systems was performed. Pertinent positives are noted above. All other systems are negative. Vital Signs Last 8 Hrs Date Time Temp Pulse Resp B/P Pulse Ox O2 Delivery O2 Flow Rate FiO2 07/06/16 08:00 Nasal Cannula 3.0 07/06/16 07:26 36.6 83 18 174/93 93 CPAP 3.0 I & O 24-Hour Column 07/06/16 08:00 Intake Total 1755 ml Output Total 600 ml Balance 1155 ml Last Recorded Weight Weight (Kilograms): 82.000 Physical Exam General Appearance: no apparent distress Head: normocephalic, atraumatic Eyes: PERRL Neck: supple, no adenopathy Respiratory/Chest: lungs clear Cardiovascular: regular rate, rhythm Abdomen/GI: normal bowel sounds, non tender, soft Extremities/Musculoskelatal: no calf tenderness, no pedal edema Neurologic/Psych: alert, oriented x 3 Family History Cancer Diabetes mellitus Negative for CKD/ESRD Social History Smoking Status: Never smoker Smokeless Tobacco Use: No Alcohol Use: none Drug Use: none Marital Status: Housing Status: lives alone, senior living Occupation: retired . Resides at local senior living. Never a smoker Laboratory Results Past 24 Hours 07/06/16 06:14 07/06/16 06:14 Test 07/06/16 06:14 Red Blood Count 3.29 M/uL (4.2-5.4) Mean Corpuscular Volume 93.9 fL (80-100) Mean Corpuscular Hemoglobin 30.4 pg (25-34) Mean Corpuscular Hemoglobin Concent 32.4 g/dl (32-36) RDW Standard Deviation 50.0 fL (36.4-46.3) RDW Coefficient of Variation 14.5 % (11.5-14.5) Mean Platelet Volume 11.4 fL (7.4-10.4) Anion Gap 7.0 mmol/L (3-11) Est Creatinine Clear Calc Drug Dose 21.4 ml/min Estimated GFR () 25.6 Estimated GFR (Non- 22.0 BUN/Creatinine Ratio 7.0 (10-20) Calcium Level 7.9 mg/dl (8.5-10.1) Allergies Coded Allergies: No Known Allergies (Unverified , 04/11/16) PT DENIES PREVIOUSLY PROFILED SULFA ALLERGY? Medications Current Inpatient Medications Medications (Trade) Dose Ordered Sig/Doug Route Start Time Stop Time Status Last Admin Dose Admin Acetaminophen (Tylenol Tab) 650 mg Q4H PRN PO 06/23/16 21:30 07/23/16 21:29 Bisacodyl (Dulcolax Supp) 10 mg UD PRN MD 06/23/16 21:30 07/23/16 21:29 Cholecalciferol (Vitamin D Tab) 1,000 inter.unit DAILY PO 06/24/16 09:00 07/24/16 08:59 07/06/16 09:07 1,000 INTER.UNIT Clotrimazole (Lotrimin 1% Crm) 1 appln BID EXT 06/24/16 09:00 07/24/16 08:59 07/06/16 09:08 1 APPLN Docusate Sodium (coLACE CAP) 200 mg BID PO 06/24/16 09:00 07/24/16 08:59 07/06/16 09:06 200 MG Fluoxetine HCl (Prozac Cap) 40 mg QAM PO 06/24/16 09:00 07/24/16 08:59 07/06/16 09:08 40 MG Gabapentin (Neurontin Cap) 100 mg BID PO 06/24/16 09:00 07/24/16 08:59 07/06/16 09:07 100 MG Magnesium Hydroxide (Milk Of Magnesia Susp) 30 ml UD PRN PO 06/23/16 21:30 07/23/16 21:29 Multivitamins (Multivitamin Tab) 1 tab DAILY PO 06/24/16 09:00 07/24/16 08:59 07/06/16 09:06 1 TAB Oxycodone/ Acetaminophen (Percocet 5-325MG Tab) 1 tab Q6H PRN PO 06/23/16 21:30 07/07/16 21:29 07/05/16 21:57 1 TAB Sodium Biphosphate/ Sodium Phosphate (Fleet Enema) 133 ml UD PRN MD 06/23/16 21:30 07/23/16 21:29 Tramadol HCl (Ultram Tab) 50 mg Q6H PRN PO 06/23/16 21:30 07/23/16 21:29 07/05/16 23:51 50 MG Trazodone HCl (Desyrel Tab) 50 mg BID PO 06/24/16 09:00 07/24/16 08:59 07/06/16 09:07 50 MG Calcium/Vitamin D (Caltrate Plus Tab) 1 tab DAILY PO 06/24/16 09:00 07/24/16 08:59 07/06/16 09:06 1 TAB Polyethylene (Miralax Powder Packet) 17 gm DAILY PRN PO 06/23/16 21:30 07/23/16 21:29 Ondansetron HCl (Zofran Inj) 4 mg Q6H PRN IV 06/23/16 21:30 07/23/16 21:29 07/04/16 20:52 4 MG Cyanocobalamin (Vitamin B-12 Tab) 1,000 mcg QAM PO 06/30/16 09:00 07/30/16 08:59 07/06/16 09:06 1,000 MCG Heparin Sodium (Porcine) (Heparin Sq 5000 Unit/0.5ml) 5,000 unit Q12 SQ 06/29/16 21:00 07/29/16 20:59 07/06/16 09:11 5,000 UNIT Duloxetine HCl 20 mg 20 mg QAM PO 07/02/16 09:00 08/01/16 08:59 07/06/16 09:07 20 MG Clindamycin Phosphate/Dextrose (Cleocin Iv/ Dextrose Add-[place] 50ML) 54 ml @ 100 mls/hr Q8 IV 07/01/16 15:00 07/11/16 14:59 07/06/16 05:58 100 MLS/HR Lactobacillus Acidophilus (Floranex Tab) 4 tab TIDM PO 07/02/16 08:30 08/01/16 08:29 07/06/16 09:06 4 TAB Levofloxacin (Levaquin Tab) 750 mg Q2D@1100 PO 07/02/16 15:30 07/09/16 15:29 07/04/16 11:15 750 MG Levofloxacin (Consult) 1 ea UD PRN N/A 07/02/16 15:15 08/01/16 15:14 Heparin Sodium (Porcine) (Heparin 10 Unit/ ml 5 ml Flush) 5 ml PRN PRN FLUSH 07/02/16 19:45 08/01/16 19:44 07/06/16 06:54 5 ML Ranitidine HCl (zANTac TAB) 150 mg BID PO 07/06/16 21:00 08/05/16 20:59 Sucralfate (Carafate Susp) 1 gm ACHS PO 07/06/16 09:30 08/05/16 09:29 Impression (1) Acute kidney injury (2) Seroma (3) Cellulitis of left hip (4) Pyuria, sterile Patient has nonoliguric BRYN. She may have suffered a hemodynamic injury at the time of surgery and vancomycin nephrotoxicity. Baseline creatinine had been 0.6 - 1.0 prior to hospitalization. Kidney function has stabilized at creatinine 2.0. Volume status and electrolyte balance remain acceptable. Urinalysis was negative for blood or protein. Urine microscopy shows sterile pyuria but no casts. Renal US did show mild dilation of bilateral collecting systems, however, abdominal CT revealed stable bilateral parapelvic cysts. There was no hydronephrosis. Recommendations -- Agree with discontinuation of Vancomycin therapy -- Recommend consolidating antibiotic regimen (stop levaquin?) -- Avoid PPI as this can be associated w/ AIN. Patient has had sterile pyuria on UA -- Avoid Fleets enemas as this may result in hyperphosphatemia in the setting of BRYN -- Avoid vitamin C due to risk of oxaluria in the setting of BRYN -- Patient hopes to return to [facility] soon. She has nonoliguric BRYN. Recommend that temporary staff accountant at senior living monitor I&O's and obtain weight on a daily basis. Patient should have PRP checked twice weekly until clear evidence of renal recovery (creatinine 1.5 or less). Recommend discussing case w/ attending physician at [facility]. He can provide ongoing medical management
[2016-07-06] MEDS: SUCRALFATE 1 GM/10 ML UDC PO SCH ×4 (10:49→20:21)
[2016-07-06] MEDS: LEVOFLOXACIN 750 MG TAB PO SCH (10:50)
[2016-07-06] MEDS ORDERED: FLUCONAZOLE 100 MG TAB PO ONE (12:15)
[2016-07-06] MEDS: NYSTATIN SUSP 500,000 U/5 ML UDC PO SCH ×3 (12:53→20:21)
[2016-07-06] MEDS: OXYCODONE/ACETAMINOPHEN 5-325 TAB PO PRN ×2 (13:43→20:20)
[2016-07-06 15:18] VITALS: BP 152/71; PULSE 86; TEMP 36.2; O2SAT 98
--- NOTE | 2016-07-06 19:44 | Progress Note ---
Subjective Date of Service: Jul 06, 2016. Subjective Pt evaluation today including: conversation w/ patient, conversation w/ family (daughter by phone), physical exam, chart review, lab review, conversation w/ retail wireless sales consultant (speech), review of inpatient medication list Pain: mild odynophagia with swallowing - started this AM PO Intake: fair Voiding: no voiding problems no issues overnight she is in her usual mood - making jokes, etc c/o odynophagia - started this am, she believes both solids/liquids cause discomfort seen by speech; doctors hospital soft diet recommended no cough or congestion or respiratory complaints Problem List Medical Problems: (1) Cellulitis of left hip Status: Acute (2) Frequent falls Status: Acute (3) Hip fracture, left Status: Acute (4) Left arm cellulitis Status: Acute (5) Lymphedema of upper extremity Status: Acute (6) Postoperative wound infection Status: Acute (7) Weakness Status: Acute Review of Systems Constitutional: No fever Respiratory: No cough, No dyspnea on exertion, No shortness of breath, No sputum, No wheezing Cardiac: No chest pain, No orthopnea Abdomen: No diarrhea, No pain Objective Vital Signs Date Time Temp Pulse Resp B/P Pulse Ox O2 Delivery O2 Flow Rate FiO2 07/06/16 15:18 36.2 86 18 152/71 98 Nasal Cannula 3.0 07/06/16 15:15 Nasal Cannula 3.0 07/06/16 08:00 Nasal Cannula 3.0 07/06/16 07:26 36.6 83 18 174/93 93 CPAP 3.0 07/06/16 00:16 36.9 85 18 112/57 95 CPAP 07/05/16 23:45 Nasal Cannula 3.0 07/05/16 20:00 Nasal Cannula 3.0 Physical Exam General Appearance: no apparent distress ENT: pharynx normal, + pertinent finding (no hoarse voice, no oral thrush, MMM , no posterior throat lesions) Neck: no JVD Respiratory/Chest: no respiratory distress, no accessory muscle use, + rales ( anterior left chest and b/l bases posteriorly ) Cardiovascular: regular rate, rhythm, no gallop, no murmur Abdomen: normal bowel sounds, non tender, soft, no organomegaly Extremities: no pedal edema Neurologic/Psychiatric: alert Skin: + pertinent finding (left hip unchanged from previous exams; dressing intact) Comments: lymphedema left arm; PICC line right arm - clean Laboratory Results Last 24 Hours Test 07/06/16 06:14 White Blood Count 7.57 K/uL Red Blood Count 3.29 M/uL Hemoglobin 10.0 g/dL Hematocrit 30.9 % Mean Corpuscular Volume 93.9 fL Mean Corpuscular Hemoglobin 30.4 pg Mean Corpuscular Hemoglobin Concent 32.4 g/dl RDW Standard Deviation 50.0 fL RDW Coefficient of Variation 14.5 % Platelet Count 319 K/uL Mean Platelet Volume 11.4 fL Sodium Level 145 mmol/L Potassium Level 3.4 mmol/L Chloride Level 106 mmol/L Carbon Dioxide Level 32 mmol/L Anion Gap 7.0 mmol/L Blood Urea Nitrogen 14 mg/dl Creatinine 2.00 mg/dl Est Creatinine Clear Calc Drug Dose 21.4 ml/min Estimated GFR () 25.6 Estimated GFR (Non- 22.0 BUN/Creatinine Ratio 7.0 Random Glucose 89 mg/dl Calcium Level 7.9 mg/dl Assessment and Plan 85yo female with: 1. left hip post-op infected seroma with cellulitis s/p I/D in the OR - Intra-op cultures with coag negative staph. Cont IV clindamycin. Plan for minimum 2 weeks. Today is day #6 of clindamycin. Appreciate ID and ortho consults. Dr. Bhatti wishes to see her in the office in about 2 weeks after d/c. 2. acute kidney injury - suspect 2nd to vancomycin. Checked renal u/s and there was evidence of hydronephrosis. CT abd/pelvis without stone or mass or other pathology; oddly there was no hydronephrosis on the CT. Appreciate Dr. Esposito's consultation. Cr stable today at 2. May take another 1-2 weeks to see creatinine recovery. BMP in am. If stable can likely d/c to SNF> 3. chronic resp failure - stable on home O2 amount. 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 4. DVT proph - heparin BID + SCDs. 5. PHAM - continue HS CPAP. 6. suspected left sided pneumonia - day #5 levaquin for gram negative coverage. Clindamycin will provide anaerobe coverage and some MRSA coverage. 7. FEN - eating is fair, lytes are stable, BMP am. 8. depression - cont prozac + cymbalta. Tolerating latter. Increase cymbalta dose in 1 week. 9. odynophagia - the acuity would suggest candidal esophagitis in light of 2+ weeks of IV abx vs pill esophagitis vs other. Cannot rule out esophageal dysmotility at baseline. Plan - Dr Esposito requests that PPI not be used in light of BRYN. Thus, carafate 1gm QID, zantac 150 BID, and treat empirically for candidal esophagitis with diflucan x 10 days. Keep NPO after MN just in case a barium swallow or other study is needed but doubt we will need such. 10. probable mild cognitive impairment - mental status has been at baseline for several days daughter updated by phone on 07/02/16, 07/04/16, and 07/06/16 hopefully d/c to [facility] tomorrow Continued [facility] stay due to: ambulation difficulties, multiple IV medications needed, other (BRYN, odynophagia ) Discharge planning: [facility] facility
[2016-07-06] MEDS: RANITIDINE HCL 150 MG TAB PO SCH (20:19)
[2016-07-06 23:00] VITALS: BP 157/76; PULSE 86; TEMP 36.8; O2SAT 98
[2016-07-07] MEDS: CLINDAMYCIN IV 600 MG in DEXTROSE 5% ADD-VANTAGE 50ML 50 ML IV SCH ×2 (05:43→13:39)
[2016-07-07 06:52] LABS: BUN/CREATININE RATIO 7.6 (10-20); CALCIUM 8.4 mg/dl (8.5-10.1); CREATININE 1.8 mg/dl (0.60-1.20); POTASSIUM 3.3 mmol/L (3.5-5.1)
[2016-07-07 07:16] VITALS: BP 150/74; PULSE 84; TEMP 36.7; O2SAT 97
[2016-07-07] MEDS ORDERED: FLUCONAZOLE 100 MG TAB PO SCH (09:00)
[2016-07-07] MEDS ORDERED: POTASSIUM CHLORIDE 20 MEQ TABCR PO SCH (09:00)
[2016-07-07] MEDS: NYSTATIN SUSP 500,000 U/5 ML UDC PO SCH ×2 (09:07→13:39)
[2016-07-07] MEDS: CLOTRIMAZOLE 1% CR 15 GM TUBE EXT SCH (09:07)
[2016-07-07] MEDS: SUCRALFATE 1 GM/10 ML UDC PO SCH ×2 (09:07→12:06)
[2016-07-07] MEDS: LACTOBACILLUS ACIDOPHILUS (FLORANEX) TAB PO SCH ×2 (09:09→12:07)
[2016-07-07] MEDS: GABAPENTIN 100 MG CAP PO SCH (09:09)
[2016-07-07] MEDS: CHOLECALCIFEROL 1000 INTER.UNIT TAB PO SCH (09:10)
[2016-07-07] MEDS: CALCIUM 600MG + VIT D 400 IU TAB PO SCH (09:10)
[2016-07-07] MEDS: TRAZODONE HCL 50 MG TAB PO SCH (09:10)
[2016-07-07] MEDS: MULTIVITAMIN TAB PO SCH (09:10)
[2016-07-07] MEDS: RANITIDINE HCL 150 MG TAB PO SCH (09:10)
[2016-07-07] MEDS: FLUOXETINE HCL 20 MG CAP PO SCH (09:10)
[2016-07-07] MEDS: CYANOCOBALAMIN 500 MCG TAB (VIT B-12) PO SCH (09:11)
[2016-07-07] MEDS: DULOXETINE HCL 20 MG CAP PO SCH (09:11)
[2016-07-07] MEDS: DOCUSATE SODIUM 100 MG CAP PO SCH (09:11)
[2016-07-07] MEDS: HEPARIN SOD 5000 UNIT/0.5 ML CARP SQ SCH (09:16)
--- NOTE | 2016-07-07 10:19 | Nephrology Progress Note ---
Nephrology Progress Note Date of Service Jul 07, 2016. Chief Complaint Follow-up for acute kidney injury. Ridge Luther was seen and examined in her room this morning. She has been otherwise feeling fine, denies any shortness of breath, chest pain. Renal function slightly improved to creatinine 1.8. Sodium 147. Blood pressure has been well controlled. Continues to make decent amount of urine. Review of Systems A complete review of systems was performed. Pertinent positives are noted above. All other systems are negative. Vital Signs Last 8 Hrs Date Time Temp Pulse Resp B/P Pulse Ox O2 Delivery O2 Flow Rate FiO2 07/07/16 07:16 36.7 84 18 150/74 97 Nasal Cannula 2.0 I & O 24-Hour Column 07/07/16 08:00 Intake Total 100 ml Output Total 2050 ml Balance -1950 ml Last Recorded Weight Weight (Kilograms): 82.000 Physical Exam GENERAL: Elderly female, AAA x 3, pleasant, healthy-appearing, not in any distress. NECK: Supple, no JVD. RESPIRATORY: Normal breathing efforts, no accessory muscle use, clear to auscultation bilaterally, no wheezes or rales. CARDIOVASCULAR: S1, S2 normal, rate rhythm regular. EXTREMITY: No lower extremity edema NEURO: speech fluent. PSYCHIATRY: Normal mood and judgment Family History Cancer Diabetes mellitus Negative for CKD/ESRD Social History Smoking Status: Never smoker Smokeless Tobacco Use: No Alcohol Use: none Drug Use: none Marital Status: Housing Status: lives alone, [facility] Occupation: retired . Resides at local [facility]. Never a smoker Laboratory Results Past 24 Hours 07/07/16 05:43 Test 07/07/16 05:43 Anion Gap 8.0 mmol/L (3-11) Est Creatinine Clear Calc Drug Dose 23.7 ml/min Estimated GFR () 29.0 Estimated GFR (Non- 25.0 BUN/Creatinine Ratio 7.6 (10-20) Calcium Level 8.4 mg/dl (8.5-10.1) Allergies Coded Allergies: No Known Allergies (Unverified , 04/11/16) PT DENIES PREVIOUSLY PROFILED SULFA ALLERGY? Medications Current Inpatient Medications Medications (Trade) Dose Ordered Sig/Doug Route Start Time Stop Time Status Last Admin Dose Admin Acetaminophen (Tylenol Tab) 650 mg Q4H PRN PO 06/23/16 21:30 07/23/16 21:29 Bisacodyl (Dulcolax Supp) 10 mg UD PRN [place] 06/23/16 21:30 07/23/16 21:29 Cholecalciferol (Vitamin D Tab) 1,000 inter.unit DAILY PO 06/24/16 09:00 07/24/16 08:59 07/07/16 09:10 1,000 INTER.UNIT Clotrimazole (Lotrimin 1% Crm) 1 appln BID EXT 06/24/16 09:00 07/24/16 08:59 07/07/16 09:07 1 APPLN Docusate Sodium (coLACE CAP) 200 mg BID PO 06/24/16 09:00 07/24/16 08:59 07/07/16 09:11 200 MG Fluoxetine HCl (Prozac Cap) 40 mg QAM PO 06/24/16 09:00 07/24/16 08:59 07/07/16 09:10 40 MG Gabapentin (Neurontin Cap) 100 mg BID PO 06/24/16 09:00 07/24/16 08:59 07/07/16 09:09 100 MG Magnesium Hydroxide (Milk Of Magnesia Susp) 30 ml UD PRN PO 06/23/16 21:30 07/23/16 21:29 Multivitamins (Multivitamin Tab) 1 tab DAILY PO 06/24/16 09:00 07/24/16 08:59 07/07/16 09:10 1 TAB Oxycodone/ Acetaminophen (Percocet 5-325MG Tab) 1 tab Q6H PRN PO 06/23/16 21:30 07/07/16 21:29 07/06/16 20:20 1 TAB Sodium Biphosphate/ Sodium Phosphate (Fleet Enema) 133 ml UD PRN [place] 06/23/16 21:30 07/23/16 21:29 Tramadol HCl (Ultram Tab) 50 mg Q6H PRN PO 06/23/16 21:30 07/23/16 21:29 07/05/16 23:51 50 MG Trazodone HCl (Desyrel Tab) 50 mg BID PO 06/24/16 09:00 07/24/16 08:59 07/07/16 09:10 50 MG Calcium/Vitamin D (Caltrate Plus Tab) 1 tab DAILY PO 06/24/16 09:00 07/24/16 08:59 07/07/16 09:10 1 TAB Polyethylene (Miralax Powder Packet) 17 gm DAILY PRN PO 06/23/16 21:30 07/23/16 21:29 Ondansetron HCl (Zofran Inj) 4 mg Q6H PRN IV 06/23/16 21:30 07/23/16 21:29 07/04/16 20:52 4 MG Cyanocobalamin (Vitamin B-12 Tab) 1,000 mcg QAM PO 06/30/16 09:00 07/30/16 08:59 07/07/16 09:11 1,000 MCG Heparin Sodium (Porcine) (Heparin Sq 5000 Unit/0.5ml) 5,000 unit Q12 SQ 06/29/16 21:00 07/29/16 20:59 07/07/16 09:16 5,000 UNIT Duloxetine HCl 20 mg 20 mg QAM PO 07/02/16 09:00 08/01/16 08:59 07/07/16 09:11 20 MG Clindamycin Phosphate/Dextrose (Cleocin Iv/ Dextrose Add-[place] 50ML) 54 ml @ 100 mls/hr Q8 IV 07/01/16 15:00 07/11/16 14:59 07/07/16 05:43 100 MLS/HR Lactobacillus Acidophilus (Floranex Tab) 4 tab TIDM PO 07/02/16 08:30 08/01/16 08:29 07/07/16 09:09 4 TAB Levofloxacin (Levaquin Tab) 750 mg Q2D@1100 PO 07/02/16 15:30 07/09/16 15:29 07/06/16 10:50 750 MG Levofloxacin (Consult) 1 ea UD PRN N/A 07/02/16 15:15 08/01/16 15:14 Heparin Sodium (Porcine) (Heparin 10 Unit/ ml 5 ml Flush) 5 ml PRN PRN FLUSH 07/02/16 19:45 08/01/16 19:44 07/07/16 06:15 5 ML Ranitidine HCl (zANTac TAB) 150 mg BID PO 07/06/16 21:00 08/05/16 20:59 07/07/16 09:10 150 MG Sucralfate (Carafate Susp) 1 gm ACHS PO 07/06/16 09:30 08/05/16 09:29 07/07/16 09:07 1 GM Nystatin (Mycostatin Susp) 5 ml QID PO 07/06/16 13:00 07/16/16 12:59 07/07/16 09:07 5 ML Fluconazole (Diflucan Tab) 100 mg QAM PO 07/07/16 09:00 07/16/16 08:59 07/07/16 09:09 100 MG Potassium Chloride (Klor-Con Tab) 20 meq QAM PO 07/07/16 09:00 08/06/16 08:59 07/07/16 09:16 20 MEQ Impression (1) Acute kidney injury (2) Seroma (3) Cellulitis of left hip (4) Pyuria, sterile Patient has nonoliguric BRYN. She may have suffered a hemodynamic injury at the time of surgery and vancomycin nephrotoxicity. Baseline creatinine had been 0.6 - 1.0 prior to hospitalization. Kidney function has stabilized at creatinine 2.0. Volume status and electrolyte balance remain acceptable. Urinalysis was negative for blood or protein. Urine microscopy shows sterile pyuria but no casts. Renal US did show mild dilation of bilateral collecting systems, however, abdominal CT revealed stable bilateral parapelvic cysts. There was no hydronephrosis. Recommendations -- renal function stabilized and now seems to be improving. -- Will continue to follow while in hospital, check renal panel daily --Replace potassium with 40 milliequivalent potassium chloride p.o. x1 dose -- encourage free water intake, if serum sodium continues to stay above 145, consider starting on D5 water for a liter if p.o. intake is not adequate -- okay to be discharged when medically stable. -- Recommend that staff anesthesiologist at [facility] monitor I&O's and obtain weight on a daily basis. Patient should have PRP checked twice weekly until clear evidence of renal recovery (creatinine 1.5 or less). Recommend discussing case w/ attending physician at [facility]. He can provide ongoing medical management.
[2016-07-07] MEDS ORDERED: OXYC-57 PO ×2 (13:49)
[2016-07-07] MEDS ORDERED: TRAM-10 PO ×2 (13:49)
[2016-07-07] MEDS ORDERED: ZNT150 PO ×2 (13:49)
[2016-07-07] MEDS ORDERED: LVQ750 PO ×2 (13:49)
[2016-07-07] MEDS ORDERED: NYSS5 PO ×2 (13:49)
[2016-07-07] MEDS ORDERED: DFL100 PO ×2 (13:49)
[2016-07-07] MEDS ORDERED: CRFUDL PO ×2 (13:49)
[2016-07-07 13:50] VITALS: BP 150/74; PULSE 84; TEMP 36.7; O2SAT 97
[2016-07-07] MEDS ORDERED: CLIN300C10 PO ×2 (13:52)
--- NOTE | 2016-07-07 13:56 | Discharge Instructions ---
Discharge Instructions Admission Reason for Admission: Cellulitis Of Left Hip, Postoperative Wound Infect Discharge Discharge Diagnosis / Problem: left hip seroma that was infected with coagnegative staph Discharge Goals Goal(s): Diagnostic testing, Therapeutic intervention Activity Recommendations Activity Level: Assistance Required Therapies: Physical Therapy, Occupational Therapy Shower/Bathe: no limitations . Additional Information Patient informed of condition: Yes Advance Directives: Yes DNR: Yes Level of Care: Skilled Communicable Disease: No Prognosis: Stable Andrade Catheter: No Instructions / Follow-Up Instructions / Follow-Up 85yo female with infected left hip seroma after NIK: Left hip post-op infected seroma with cellulitis s/p I/D in the OR - Intra-op cultures with coag negative staph.Cont IV clindamycin. Plan for minimum 2 weeks. 07/14/[address] Bhatti wishes to see her in the office in about 2 weeks after d/ c. Acute kidney injury - suspect 2nd to vancomycin. CT abd/pelvis without stone or mass or other pathology; no hydronephrosis chronic resp failure/PHAM stable on home O2 and CPAP. 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 suspected left sided pneumonia - day #5 levaquin for gram negative coverage. Clindamycin will provide anaerobe coverage and some MRSA coverage. odynophagia - the acuity would suggest candidal esophagitis in light of 2+ weeks of IV abx vs pill esophagitis vs other. Cannot rule out esophageal dysmotility at baseline. Dr Esposito requests that PPI not be used in light of BRYN. Thus, carafate 1gm QID, zantac 150 BID, and treat empirically for candidal esophagitis with diflucan x 10 days. Depression - cont prozac + cymbalta. Tolerating latter. Increase cymbalta dose in 1 week. DVT proph - heparin BID + SCDs. Current Hospital Diet Patient's current hospital diet: Regular Diet Discharge Diet Recommended Diet: Regular Diet Procedures Procedures Performed: Incision and drainage of Left Hip Pending Studies Studies pending at discharge: no Medical Emergencies . Who to Call and When: Medical Emergencies: If at any time you feel your situation is an emergency, please call 911 immediately. . Non-Emergent Contact Non-Emergency issues call your: Primary Care Provider Call Non-Emergent contact if: you have a fever . . "Provider Documentation" section prepared by Clint Aguilar. Core Measure Problem Core Measures: None
--- NOTE | 2016-07-07 14:00 | Progress Note ---
Subjective Date of Service: Jul 07, 2016. Problem List Medical Problems: (1) Cellulitis of left hip Status: Acute (2) Frequent falls Status: Acute (3) Hip fracture, left Status: Acute (4) Left arm cellulitis Status: Acute (5) Lymphedema of upper extremity Status: Acute (6) Postoperative wound infection Status: Acute (7) Weakness Status: Acute Objective Vital Signs Date Time Temp Pulse Resp B/P Pulse Ox O2 Delivery O2 Flow Rate FiO2 07/07/16 07:16 36.7 84 18 150/74 97 Nasal Cannula 2.0 07/07/16 00:10 CPAP 3.0 07/06/16 23:00 36.8 86 18 157/76 98 Room Air 07/06/16 15:18 36.2 86 18 152/71 98 Nasal Cannula 3.0 07/06/16 15:15 Nasal Cannula 3.0 Laboratory Results Last 24 Hours Test 07/07/16 05:43 Sodium Level 147 mmol/L Potassium Level 3.3 mmol/L Chloride Level 106 mmol/L Carbon Dioxide Level 33 mmol/L Anion Gap 8.0 mmol/L Blood Urea Nitrogen 14 mg/dl Creatinine 1.80 mg/dl Est Creatinine Clear Calc Drug Dose 23.7 ml/min Estimated GFR () 29.0 Estimated GFR (Non- 25.0 BUN/Creatinine Ratio 7.6 Random Glucose 88 mg/dl Calcium Level 8.4 mg/dl Assessment and Plan 85yo female with infected left hip seroma after NIK: Left hip post-op infected seroma with cellulitis s/p I/D in the OR - Intra-op cultures with coag negative staph.Cont IV clindamycin. Plan for minimum 2 weeks. 07/14/[address] Bhatti wishes to see her in the office in about 2 weeks after d/ c. Acute kidney injury - suspect 2nd to vancomycin. CT abd/pelvis without stone or mass or other pathology; no hydronephrosis chronic resp failure/PHAM stable on home O2 and CPAP. 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 suspected left sided pneumonia - day #5 levaquin for gram negative coverage. Clindamycin will provide anaerobe coverage and some MRSA coverage. odynophagia - the acuity would suggest candidal esophagitis in light of 2+ weeks of IV abx vs pill esophagitis vs other. Cannot rule out esophageal dysmotility at baseline. Dr Esposito requests that PPI not be used in light of BRYN. Thus, carafate 1gm QID, zantac 150 BID, and treat empirically for candidal esophagitis with diflucan x 10 days. Depression - cont prozac + cymbalta. Tolerating latter. Increase cymbalta dose in 1 week. DVT proph - heparin BID + SCDs. Continued [facility] stay due to: ambulation difficulties, multiple IV medications needed, other (BRYN, odynophagia ) Discharge planning: correction facility
--- NOTE | 2016-07-07 14:01 | Discharge Summary ---
Discharge Summary Admission Date: Jun 23, 2016 at 21:46 Discharge Date: Jul 07, 2016 Discharge Disposition: detention facility Principal Diagnosis: post op hip seroma with stapn ( not mrsa ) infection Immunizations: Have You Had Influenza Vaccine: Yes History of Tetanus Vaccine?: Yes Tetanus Immunization Date: Jan 18, 2006 History of Pneumococcal: Yes Pneumococcal Date: Jan 18, 2005 History of Hepatitis B Vaccine: Unknown Medication Reconciliation New Medications: Clindamycin Hcl (Clindamycin Hcl) 300 Mg Cap 600 MG PO Q8, #42 DOSE Duloxetine HCl (Duloxetine HCl) 20 Mg Cap 20 MG PO QAM, #30 CAP Fluconazole (Fluconazole) 100 Mg Tab 100 MG PO QAM, #13 TAB Levofloxacin (Levofloxacin) 750 Mg Tab 750 MG PO Q2D@1100, #5 TAB Nystatin (Nystatin) 5 Ml Susp 5 ML PO QID, #100 ML 1 Refill Ranitidine HCl (Ranitidine HCl) 150 Mg Tab 150 MG PO BID, #60 TAB 3 Refills Sucralfate (Sucralfate) 1 Gm/10 Ml Susp 1 GM PO ACHS, #24 DOSE Continued Medications: Acetaminophen (Tylenol) 325 Mg Tab 650 MG PO Q6H PRN for Pain or Fever, TAB NEEDED FOR PAIN RATED 1-4 ON A SCALE OF "0-10" OR FOR ELEVATED TEMPERATURE GREATER THAN 101 F. DO NOT EXCEED 3 GM APAP/24 HOURS. Ascorbic Acid (Ascorbic Acid) 500 Mg Tab 1000 MG PO BID, TAB Bisacodyl (Dulcolax) 10 Mg Sup 1 SUPP AK UD PRN for Constipation, SUP NEEDED FOR NO BOWEL MOVEMENT FOR 4 DAYS Calcium Carbonate-Vitamin D (Oscal 500/200 D-3) 1 Tab Tab 1 TAB PO DAILY Cholecalciferol (Vitamin D3) 1,000 Unit Tab 1000 INTER.UNIT PO DAILY, TAB Clotrimazole (Topical) (Clotrimazole Anti-Fungal) 1 % Cre 1 APPLN TOP BID APPLY TO ABDOMINAL FOLDS AND INNER THIGHS Cyanocobalamin (Vitamin B12) 1,000 Mcg Tab 1000 MCG PO DAILY Docusate Sodium (Colace) 100 Mg Cap 200 MG PO BID, CAP Fluoxetine (Prozac) 40 Mg Cap 40 MG PO QAM, CAP Gabapentin (Gabapentin) 100 Mg Cap 100 MG PO BID Magnesium Hydroxide (Milk Of Magnesia) 30 Ml Susp 30 ML PO UD PRN for Constipation, ML NEEDED FOR NO BOWEL MOVEMENT FOR 9 SHIFTS Meloxicam (Mobic) 15 Mg Tab 15 MG PO DAILY, TAB Multiple Vitamin (Multivitamin) 1 Tab Tab 1 TAB PO DAILY, TAB Oxycodone/Acetaminophen 5MG/325MG (Percocet 5MG/325MG) Tab 1 TABLET PO Q6H PRN for Pain, #30 TAB (This prescription has been renewed) NEEDED FOR PAIN RATED 7-10 ON A SCALE OF "0-10" Oxygen (Oxygen) Gas 2 LITERS NA HS USE WITH CPAP HS and PRN SOB Polyethylene Glycol 3350 (Miralax) 1 Pow Pow 17 GM PO DAILY PRN for Constipation, GM Sodium Phosphate/Biphosphate (Fleet Enema) Alayna 1 EA AK UD PRN for Constipation, BTL IF AFTER 4 HOURS DULCOLAX SUPPOSITORY WAS INEFFECTIVE GIVE FLEET ENEMA Tramadol (Ultram) 50 Mg Tab 50 MG PO Q6H PRN for Pain, #30 TAB (This prescription has been renewed) NEEDED FOR PAIN RATED 4-6 ON A SCALE OF "0-10" Trazodone Hcl (Trazodone) 50 Mg Tab 50 MG PO BID, TAB Discontinued Medications: Lidocaine (Lidoderm Patch 5%) 1 Ea Tdsy 2 PATCH TOP ONAMOFFPM APPLY TO LEFT HIP EVERY MORNING AND REMOVE IN THE EVENING [Juice Supplement] () 1 DOSE PO BID Discharge Exam Review of Systems: Constitutional: No chills, No fever, No sweats Respiratory: No cough, No sputum Cardiovascular: No PND, No chest pain, No orthopnea Abdomen: No nausea, No pain, No vomiting Musculoskeletal: + joint pain, + muscle pain, + swelling Neurologic: No memory loss, No paralysis Psychiatric: No anhedonism, No anxiety, No depression symptoms Endocrine: No excessive thirst, No fatigue Hematologic / Lymphatic: No abnormal bleeding/bruising, No clotting problems Physical Exam: General Appearance: WD/WN, no apparent distress Eyes: PERRL, EOMI Neck: supple, no JVD Respiratory/Chest: chest non-tender, lungs clear, normal breath sounds Cardiovascular: regular rate, rhythm, + systolic murmur Abdomen / GI: normal bowel sounds, non tender, soft Extremities: no pedal edema, normal range of motion Neurologic/Psychiatric: alert, oriented x 3 Hospital Course 85yo female with infected left hip seroma after NIK: Left hip post-op infected seroma with cellulitis s/p I/D in the OR - Intra-op cultures with coag negative staph.Cont IV clindamycin. Plan for minimum 2 weeks. 07/14/[address] Bhatti wishes to see her in the office in about 2 weeks after d/ c. Acute kidney injury - suspect 2nd to vancomycin. CT abd/pelvis without stone or mass or other pathology; no hydronephrosis chronic resp failure/PHAM stable on home O2 and CPAP. 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 suspected left sided pneumonia - day #5 levaquin for gram negative coverage. Clindamycin will provide anaerobe coverage and some MRSA coverage. odynophagia - the acuity would suggest candidal esophagitis in light of 2+ weeks of IV abx vs pill esophagitis vs other. Cannot rule out esophageal dysmotility at baseline. Dr Esposito requests that PPI not be used in light of BRYN. Thus, carafate 1gm QID, zantac 150 BID, and treat empirically for candidal esophagitis with diflucan x 10 days. Depression - cont prozac + cymbalta. Tolerating latter. Increase cymbalta dose in 1 week. Total Time Spent: Greater than 30 minutes This includes examination of the patient, discharge planning, medication reconciliation, and communication with other providers. Discharge Instructions Please refer to the electronic Patient Visit Report (Discharge Instructions) for additional information.
[2016-07-07] MEDS ORDERED: CYM20 PO ×2 (14:02)
== END 2016-07-07 15:55 | DRG 856 ==
LOC: ENRESERVDT → ENRESERVTM → EDBD 19:42 → C.EDB 19:45 → C.MSN 21:46
PROVIDERS: ADMIT Hospitalist; ATTEND Internal Medicine
PROC: 0JBM0ZZ Excision of Left Upper Leg Subcutaneous Tissue and Fascia, Open Approach (ICD-10-PCS; 2016-06-27)
PROC: 0S9B3ZX Drainage of Left Hip Joint, Percutaneous Approach, Diagnostic (ICD-10-PCS; principal; 2016-06-27 12:15)
DX: T81.4XXA Infection following a procedure, initial encounter (principal); N17.0 Acute kidney failure with tubular necrosis; J18.9 Pneumonia, unspecified organism; M96.842 Postprocedural seroma of a musculoskeletal structure following a musculoskeletal system procedure; L03.116 Cellulitis of left lower limb; J96.10 Chronic respiratory failure, unspecified whether with hypoxia or hypercapnia; N13.30 Unspecified hydronephrosis; B37.81 Candidal esophagitis; J70.1 Chronic and other pulmonary manifestations due to radiation; N39.0 Urinary tract infection, site not specified; E87.0 Hyperosmolality and hypernatremia; J98.11 Atelectasis; F32.9 Major depressive disorder, single episode, unspecified; M81.0 Age-related osteoporosis without current pathological fracture; G47.33 Obstructive sleep apnea (adult) (pediatric); I89.0 Lymphedema, not elsewhere classified; F41.9 Anxiety disorder, unspecified; D63.8 Anemia in other chronic diseases classified elsewhere; K21.9 Gastro-esophageal reflux disease without esophagitis; K20.8 Other esophagitis; M48.06 Spinal stenosis, lumbar region; R13.10 Dysphagia, unspecified; K22.4 Dyskinesia of esophagus; G62.9 Polyneuropathy, unspecified; B95.8 Unspecified staphylococcus as the cause of diseases classified elsewhere; G31.84 Mild cognitive impairment of uncertain or unknown etiology; E66.9 Obesity, unspecified; R11.0 Nausea; R19.7 Diarrhea, unspecified; E53.8 Deficiency of other specified B group vitamins; M79.662 Pain in left lower leg; B96.89 Other specified bacterial agents as the cause of diseases classified elsewhere; Z66 Do not resuscitate; Z85.038 Personal history of other malignant neoplasm of large intestine; Z90.49 Acquired absence of other specified parts of digestive tract; Z85.3 Personal history of malignant neoplasm of breast; Z99.81 Dependence on supplemental oxygen; Z99.89 Dependence on other enabling machines and devices; Z68.30 Body mass index [BMI] 30.0-30.9, adult; Z79.1 Long term (current) use of non-steroidal anti-inflammatories (NSAID); Z79.891 Long term (current) use of opiate analgesic; Z79.899 Other long term (current) drug therapy

== ENCOUNTER 2016-07-16 17:50 | Emergency (ER) | payer OTHER, MEDICARE ==
[~2016-07-16] VITALS: Ht 165.1 cm; Wt 78.1 kg
[~2016-07-16 17:50] MED LIST changes: +ACET-1311 PO; +ASCO500T16 PO; +BISA10SU3 PR; +CHOL1000 PO; +CLIN300C10 PO; +CLOT1CRE3 TOP; +CLOTCRE5 TOP; +CRFUDL PO; +CYM20 PO; +DFL100 PO; +DOCU-94 PO; +LVQ750 PO; +MOML PO; +NF656 TOP; +NYSS5 PO; +OXYC-57 PO; +POLY335019 PO; +SODIENE PR; +TRAM-10 PO; +ZNT150 PO; +[UNRECOGNIZED DRUG - OTHER] PO
--- NOTE | 2016-07-16 18:12 | EMERGENCY ROOM VISIT NOTE ---
History Report prepared by Daniele: Latoya Sexton Under the Supervision of: Dr. Andrey Johnson M.D. First contact with patient: 17:58 Chief Complaint: MENTAL HEALTH EVALUATION Stated Complaint: MENTAL HEALTH EVAL & CLEARANCE History of Present Illness The patient is a 85 year old female who presents to the Emergency Room from [facility] for a mental health evaluation. Per nursing staff, for the past 3 days, the patient has reportedly been refusing to eat, drink, or take her medications. The patient also apparently told someone that she wants to , but wouldn't kill herself. A 302 was filed by staff at [facility]. Currently, she complains of feeling dehydrated and thirsty. She otherwise has no complaints and is not in any pain. She denies any thoughts of hurting herself or others. The patient states that she was not eating because she wasn't hungry. The patient was discharged from the hospital on July 07 after inpatient treatment for an infected seroma of the left hip. She has been on Clindamycin since then. She is also on Diflucan for yeast esophagitis. The patient has a PICC line which she receives her medications through. Source of History: patient, nursing staff Onset: 3 days [place] [facility] Position: other (psych) Quality: other (refusing PO intake) Note: Other symptoms: thirsty/dehydrated Review of Systems See HPI for pertinent positives & negatives. A total of 10 systems reviewed and were otherwise negative. Past Medical & Surgical Medical Problems: (1) Acute kidney injury (2) Anxiety (3) Carcinoma of breast (4) Carcinoma of colon (5) Chest pain (6) Depression (7) History of chronic diarrhea (8) Lumbar spinal stenosis (9) Lymphedema (10) Neuropathy (11) Osteoporosis (12) Pernicious anemia (13) Pyuria, sterile (14) Seroma (15) Sleep apnea Surgical Problems: (1) H/O partial mastectomy (2) History of appendectomy (3) History of cholecystectomy (4) History of partial colectomy Family History Cancer Diabetes mellitus Social History Smoking Status: Never Smoker Drug Use: none Marital Status: Housing Status: lives alone Occupation Status: retired Current/Historical Medications Scheduled Ascorbic Acid (Ascorbic Acid), 1,000 MG PO BID Calcium Carbonate-Vitamin D (Oscal 500/200 D-3), 1 TAB PO DAILY Cholecalciferol (Vitamin D3), 1,000 INTER.UNIT PO DAILY Clindamycin Hcl (Clindamycin Hcl), 600 MG PO Q8 Clotrimazole (Topical) (Clotrimazole Anti-Fungal), 1 APPLN TOP BID Cyanocobalamin (Vitamin B12), 1,000 MCG PO DAILY Docusate Sodium (Colace), 200 MG PO BID Fluconazole (Fluconazole), 100 MG PO QAM Fluoxetine (Prozac), 40 MG PO QAM Gabapentin (Gabapentin), 100 MG PO BID Heparin Sodium (Porcine) Lock (Heparin Lock Flush), 1 DOSE IV DAILY Lactobacillus Acidophilus (Lactinex), 1 TAB PO BID Levofloxacin (Levofloxacin), 750 MG PO Q2D@1100 Meloxicam (Mobic), 15 MG PO DAILY Multiple Vitamin (Multivitamin), 1 TAB PO DAILY Nutritional Supplements (Jenaro), 1 PKT BID Nystatin (Nystatin), 5 ML PO QID Polyethylene Glycol 3350 (Miralax), 17 GM PO DAILY Potassium Ext Rel (Klor-Con), 40 MEQ PO BID Ranitidine HCl (Ranitidine HCl), 150 MG PO BID Sucralfate (Sucralfate), 1 GM PO ACHS Trazodone Hcl (Trazodone), 50 MG PO BID Vitamin A ([id number]), 1 TAB PO DAILY Zinc Sulfate (Zinc Sulfate), 220 MG PO DAILY [K-Dur 20MEQ], 1 TAB PO BID [Tb 2ND Inj], 0.1 ML INTRAD 07/17/16 Scheduled PRN Acetaminophen (Tylenol), 650 MG PO Q6H PRN for Pain or Fever Bisacodyl (Dulcolax), 1 SUPP DC UD PRN for Constipation Magnesium Hydroxide (Milk Of Magnesia), 30 ML PO UD PRN for Constipation Ondansetron Hcl (Zofran), 4 MG PO Q6 PRN for Nausea Tramadol (Ultram), 50 MG PO Q4H PRN for Pain Miscellaneous Medications [2ND Step Tb Test] Allergies Coded Allergies: No Known Allergies (Unverified , 04/11/16) PT DENIES PREVIOUSLY PROFILED SULFA ALLERGY? Physical Exam Vital Signs Date Time Temp Pulse Resp B/P Pulse Ox O2 Delivery O2 Flow Rate FiO2 07/16/16 21:27 81 16 161/76 96 07/16/16 20:35 81 14 156/74 92 Room Air 07/16/16 18:13 36.9 72 18 150/95 92 Room Air Physical Exam GENERAL: Patient is chronically unwell appearing and in no acute distress. Drinking a soda. HEENT: No acute trauma, normocephalic atraumatic, mucous membranes mildly dry, no nasal congestion, no scleral icterus. NECK: No stridor, no adenopathy, no meningismus, trachea is midline. LUNGS: No dyspnea. Clear to auscultation and equal bilaterally. No wheeze, no rhonchi. HEART: Regular rate and rhythm. No murmurs, rubs, gallops appreciated. ABDOMEN: Soft, nontender, bowel sounds positive, no masses appreciated, no peritonitis. BACK: No midline tenderness, no CVA tenderness EXTREMITIES: Normal motion all extremities, no cyanosis, no edema. PICC line right arm. Large dressing over left hip. NEUROLOGIC: Alert and oriented, no acute motor or sensory deficits, no focal weakness, cranial nerves grossly intact. SKIN: No rash, no jaundice, no diaphoresis. Medical Decision & Procedures ER Provider Diagnostic Interpretation: X ray results are stated below per my interpretation and the radiologist's interpretation. CHEST ONE VIEW PORTABLE HISTORY: mental health evaluation COMPARISON: Chest 07/02/2016. FINDINGS: There are low lung volumes. No pneumothorax. The tip of the right PICC likely terminates in the right atrium. This could be pulled back by approximately 2 cm. Bibasilar linear densities favor subsegmental atelectasis. There is trace bilateral pleural effusions. No evidence for pulmonary edema. The heart is stable in size. Left lower lobe interstitial thickening has improved. IMPRESSION: 1. The right PICC likely terminates in the right atrium. This should be pulled back by approximately 2 cm. 2. Low lung volumes with trace bilateral pleural effusions and bibasilar densities, unchanged. 3. Left lower lobe interstitial thickening is slightly improved. No new focal lung consolidations. Electronically signed by: Cristobal Ramsay M.D. 07/16/2016 6:23 PM Dictated Date/Time: 07/16/2016 6:[address]AST CT DOSE: 537.48 mGy.cm HISTORY: mental health evaluation, dementia TECHNIQUE: Multiaxial CT images of the head were performed without the use of intravenous contrast. Automated exposure control was utilized for this study. Comparison: Head CT 04/11/2016. Findings: The paranasal sinuses and mastoid air cells are clear. The calvarium and skull base are intact. There is no mass, hematoma, midline shift, acute infarct. White matter hypodensity is nonspecific but suggestive of microvascular ischemic change. The ventricles and sulci demonstrate mild age-related involutional changes. Impression: No significant change compared to the prior study. No acute intracranial abnormality. Electronically signed by: Cristobal Ramsay M.D. 07/16/2016 8:11 PM Dictated Date/Time: 07/16/2016 8:07 PM CHEST 2 VIEWS ROUTINE HISTORY: Repeat imaging for better view of picc line COMPARISON: Chest 07/16/2016. FINDINGS: No pneumothorax. There are low lung volumes. The tip of the right PICC terminates within the right atrium or at the superior cavoatrial junction. This is difficult to confirm due to the low lung volumes. The heart is stable in size. Left axillary surgical clips.. Bibasilar linear densities and left lower lobe interstitial thickening are again noted. IMPRESSION: The tip of the right PICC terminates either within the right atrium or at the superior cavoatrial junction. This is difficult to confirm due to the patient's low lung volumes which partially obscure the right heart border. Electronically signed by: Cristobal Ramsay M.D. 07/16/2016 8:26 PM Dictated Date/Time: 07/16/2016 8:23 PM Laboratory Results 07/16/16 18:31 Red Blood Count 4.27, Mean Corpuscular Volume 89.7, Mean Corpuscular Hemoglobin 31.1, Mean Corpuscular Hemoglobin Concent 34.7, Mean Platelet Volume 12.2, Neutrophils (%) (Auto) 67.7, Lymphocytes (%) (Auto) 19.2, Monocytes (%) (Auto) 12.1, Eosinophils (%) (Auto) 0.6, Basophils (%) (Auto) 0.1, Neutrophils # (Auto ) 8.47, Lymphocytes # (Auto) 2.40, Monocytes # (Auto) 1.51, Eosinophils # (Auto ) 0.08, Basophils # (Auto) 0.01 07/16/16 18:31 Test 07/16/16 18:28 07/16/16 18:31 07/16/16 19:23 Ethyl Alcohol mg/dL < 3.0 mg/dl (0-3) White Blood Count 12.51 K/uL (4.8-10.8) Red Blood Count 4.27 M/uL (4.2-5.4) Hemoglobin 13.3 g/dL (12.0-16.0) Hematocrit 38.3 % (37-47) Mean Corpuscular Volume 89.7 fL (80-100) Mean Corpuscular Hemoglobin 31.1 pg (25-34) Mean Corpuscular Hemoglobin Concent 34.7 g/dl (32-36) Platelet Count 336 K/uL (130-400) Mean Platelet Volume 12.2 fL (7.4-10.4) Neutrophils (%) (Auto) 67.7 % Lymphocytes (%) (Auto) 19.2 % Monocytes (%) (Auto) 12.1 % Eosinophils (%) (Auto) 0.6 % Basophils (%) (Auto) 0.1 % Neutrophils # (Auto) 8.47 K/uL (1.4-6.5) Lymphocytes # (Auto) 2.40 K/uL (1.2-3.4) Monocytes # (Auto) 1.51 K/uL (0.11-0.59) Eosinophils # (Auto) 0.08 K/uL (0-0.5) Basophils # (Auto) 0.01 K/uL (0-0.2) RDW Standard Deviation 45.8 fL (36.4-46.3) RDW Coefficient of Variation 14.1 % (11.5-14.5) Immature Granulocyte % (Auto) 0.3 % Immature Granulocyte # (Auto) 0.04 K/uL (0.00-0.02) Anion Gap 13.0 mmol/L (3-11) Est Creatinine Clear Calc Drug Dose 42.6 ml/min Estimated GFR () 60.5 Estimated GFR (Non- 52.2 BUN/Creatinine Ratio 24.1 (10-20) Calcium Level 8.6 mg/dl (8.5-10.1) Total Bilirubin 0.6 mg/dl (0.2-1) Aspartate Amino Transf (AST/SGOT) 75 U/L (15-37) Alanine Aminotransferase (ALT/SGPT) 73 U/L (12-78) Alkaline Phosphatase 96 U/L (45-117) Total Protein 6.6 gm/dl (6.4-8.2) Albumin 3.2 gm/dl (3.4-5.0) Globulin 3.4 gm/dl (2.5-4.0) Albumin/Globulin Ratio 0.9 (0.9-2) Thyroid Stimulating Hormone (TSH) 2.100 uIu/ml (0.300-4.500) Salicylates Level < 1.7 mg/dl (2.8-20) Acetaminophen Level < 2 ug/ml (10-30) Urine Color DK YELLOW Urine Appearance CLOUDY (CLEAR) Urine pH 6.0 (4.5-7.5) Urine Specific [place] 1.023 (1.000-1.030) Urine Protein 1+ (NEG) Urine Glucose (UA) NEG (NEG) Urine Ketones 2+ (NEG) Urine Occult Blood NEG (NEG) Urine Nitrite NEG (NEG) Urine Bilirubin 2+ (NEG) Urine Urobilinogen NEG (NEG) Urine Leukocyte Esterase TRACE (NEG) Urine WBC (Auto) 5-10 /hpf (0-5) Urine RBC (Auto) 0-4 /hpf (0-4) Urine Hyaline Casts (Auto) 0 /lpf (0-5) Urine Epithelial Cells (Auto) >30 /lpf (0-5) Urine Bacteria (Auto) NEG (NEG) Urine Renal Epithelial Cells /lpf (0-5) Urine Crystals CALCIUM OXALATE (NONE Urine Pathogenic Casts /lpf (0) Urine Yeast (Auto) (NONE PRSENT) Urine Opiates Screen NEG (NEG) Urine Methadone, Qualitative NEG (NEG) Urine Barbiturates NEG (NEG) Urine Phencyclidine (PCP) Level NEG (NEG) Ur Amphetamine/Methamphetamine NEG (NEG) MDMA (Ecstasy) Screen NEG (NEG) Urine Benzodiazepines Screen NEG (NEG) Urine Cocaine Metabolite NEG (NEG) Urine Marijuana (THC) NEG (NEG) Laboratory results as reviewed by me. ECG Indication: other (mental health evaluation) Rate (beats per minute): 85 Rhythm: normal sinus Findings: no acute ischemic change, no ectopy, other (QTC 440) ED Course 1800: The patient was evaluated in room A8. A complete history and physical exam was performed. 1945: The patient was happy and eating at this time. 2029: I discussed the case with Dr. Cohn - Psychiatry. Given what I told her, she does not feel like the patient meets inpatient psychiatric criteria. 2034: I declined the 302 warrant. 2042: I reassessed the patient. She admits that she is depressed but does not have suicidal ideation or a plan. She does not feel that she needs to be admitted to a psych facility. While in the ED, the patient ate a tray of food and drank several cups of soda and coffee. She states that she has been taking all of the medications she is being offered at the long-term. She has no plan to kill herself and her scientologist would not allow her to kill herself anyway. She does not have any previous suicide attempts. 2054: I reassessed the patient. IV team was at bedside to evaluate the patient and pull her PICC line back 1 cm. 2129: The patient will be discharged to the nursing facility. Medical Decision Differential: Mood Disorder, Overdose, Infectious, Electrolyte Abnormality, Cardiac, Hepatic, Endocrine, Toxicologic, Neurologic, amongst other pathologies entertained. 85 yr female arrives via EMS with 302 warrant signed by [facility] due to patient reportedly being risk to herself. She makes clear she is depressed because she has been in long-term with chronic illness. States she has never attempted to kill herself. She admits she made statements about wishing she were , but she also makes very clear she would never kill herself. Even the 302 clearly states patient has claimed she would never kill herself. She reportedly hasn't been eating at long-term though on arrival here she is eating a tray of food, drank several glasses of soda as well as a cup of coffee. She is conversant with likely mild dementia, though seems to remember much of what has been going on. She is currently being treated with abx for hip infection though denies any pain nor issues with it right now. Exam is benign and patient cooperative and in no distress. Extensive work-up is unremakrable other than just mildly elevated WBC and some ketones in urine, likely some dehydration with chronic disease. No clear indication though that she has been harming herself by not eating, and given fact she is eating/ drinking here without issue I do not feel she needs IV fluids (though has PICC if this were necessary). CXR, CT head are negative for acute findings. I discussed case over phone with psychiatrist who agrees that it appears patient does not meet inpatient criteria. In addition patient makes clear she does not wish psychiatric admission and would prefer to go back to long-term. She is going to long-term. She looks in no distress. I have denied the 302 based on my evaluation and work-up of patient. I did have iv team come pull picc line back a bit as it was a bit deep. I will have rn case mgrmanager sas long-term about having patient seen by PCP for depression discussion. Consults Time Called: 2027 Consulting Physician: Dr. Cohn - Psychiatry Returned Call: 2029 I discussed the case with her. Given what I told her, she does not feel like the patient meets inpatient psychiatric criteria. Impression Primary Impression: Depression Scribe Attestation The scribe's documentation has been prepared under my direction and personally reviewed by me in its entirety. I confirm that the note above accurately reflects all work, treatment, procedures, and medical decision making performed by me. Departure Information Dispostion Home / Self-Care Referrals [facility] (PCP) Patient Instructions My [facility] Additional Instructions Extensive work-up done with CXR, CT head, labs and UA with no acute findings other than just mildly elevated WBC (12) and some ketones in urine (2+) of non- specific cause. She does not meet inpatient psychiatric admission criteria at this time. Patient does not wish psychiatric admission and has made clear to staff here ( and in 302) that she would never actually harm herself.. She clearly has some depression and this should be discussed with her PCP. She ate a tray of food and drank plenty of fluids without issue. She is not acutely dehydrated by examination. Her picc line with pulled back a short distance as it was a bit deep on CXR. Problem Qualifiers Primary Impression: Depression Depression Type: dysthymia Qualified Codes: F34.1 - Dysthymic disorder
[2016-07-16 18:13] VITALS: Ht 165.1 cm; Wt 78.1 kg
--- NOTE | 2016-07-16 18:25 | DIAGNOSTIC IMAGING REPORT ---
CHEST ONE VIEW PORTABLE HISTORY: mental health evaluation COMPARISON: Chest 07/02/2016. FINDINGS: There are low lung volumes. No pneumothorax. The tip of the right PICC likely terminates in the right atrium. This could be pulled back by approximately 2 cm. Bibasilar linear densities favor subsegmental atelectasis. There is trace bilateral pleural effusions. No evidence for pulmonary edema. The heart is stable in size. Left lower lobe interstitial thickening has improved. IMPRESSION: 1. The right PICC likely terminates in the right atrium. This should be pulled back by approximately 2 cm. 2. Low lung volumes with trace bilateral pleural effusions and bibasilar densities, unchanged. 3. Left lower lobe interstitial thickening is slightly improved. No new focal lung consolidations. Electronically signed by: Cristobal Ramsay M.D. 07/16/2016 6:23 PM Dictated Date/Time: 07/16/2016 6:21 PM
[2016-07-16] MEDS ORDERED: K DUR 20 MEQ PO (18:33)
[2016-07-16] MEDS ORDERED: HEPA100I10 IV (18:33)
[2016-07-16] MEDS ORDERED: NUTR-397 (18:33)
[2016-07-16 18:46] LABS: BASO % 0.1 %; BASO ABS # 0.01 K/uL (0-0.2); COMPLETE YES; EOS % 0.6 %; HEMATOCRIT 38.3 % (37-47); IG% 0.3 %; LYMPH % 19.2 %; MEAN CELL VOLUME 89.7 fL (80-100); MEAN CORPUSCULAR HEMOGLOBIN 31.1 pg (25-34); MEAN CORPUSCULAR HGB CONC 34.7 g/dl (32-36); MEAN PLATELET VOLUME 12.2 fL (7.4-10.4); MONO % 12.1 %; NEUT % 67.7 %; PLATELET COUNT 336 K/uL (130-400); RED BLOOD COUNT 4.27 M/uL (4.2-5.4); WHITE BLOOD COUNT 12.51 K/uL (4.8-10.8)
[2016-07-16] MEDS ORDERED: [UNRECOGNIZED DRUG - OTHER] INTRAD (19:02)
[2016-07-16] MEDS ORDERED: [UNRECOGNIZED DRUG - REMARK] (19:02)
[2016-07-16] MEDS ORDERED: POTA20TA16 PO (19:02)
[2016-07-16] MEDS ORDERED: TRAM-10 PO (19:02)
[2016-07-16] MEDS ORDERED: ZINC1CAP PO (19:02)
[2016-07-16] MEDS ORDERED: ONDA4TAB46 PO (19:02)
[2016-07-16] MEDS ORDERED: VITA1CAP11 PO (19:02)
[2016-07-16] MEDS ORDERED: LCTX PO (19:02)
[2016-07-16 19:07] LABS: ALB/GLOB RATIO 0.9 (0.9-2); BUN/CREATININE RATIO 24.1 (10-20); CALCIUM 8.6 mg/dl (8.5-10.1); CREATININE 0.98 mg/dl (0.60-1.20); POTASSIUM 3.1 mmol/L (3.5-5.1)
[2016-07-16 19:14] LABS: ACETAMINOPHEN < 2 ug/ml (10-30)
[2016-07-16 19:16] LABS: THYROID STIMULATING HORMONE 2.1 uIu/ml (0.300-4.500)
[2016-07-16 19:57] LABS: URINE APPEARANCE CLOUDY (CLEAR); URINE COLOR DK YELLOW; URINE EPITHELIAL CELL AUTO >30 /lpf (0-5); URINE NITRITE NEG (NEG); URINE SPECIFIC GRAVITY 1.023 (1.000-1.030); UROBILINOGEN NEG (NEG); ZZUR CULT IF INDIC CLEAN CATCH YES
[2016-07-16 20:06] LABS: BENZODIAZEPINE, URINE NEG (NEG); COCAINE,URINE NEG (NEG); PHENCYCLIDINE, URINE NEG (NEG)
[2016-07-16 20:07] LABS: MANUAL MICROSCOPIC REQUIRED? NO; REVIEW REQ? YES; URINE BILIRUBIN 2+ (NEG)
--- NOTE | 2016-07-16 20:13 | DIAGNOSTIC IMAGING REPORT ---
HEAD CT NONCONTRAST CT DOSE: 537.48 mGy.cm HISTORY: mental health evaluation, dementia TECHNIQUE: Multiaxial CT images of the head were performed without the use of intravenous contrast. Automated exposure control was utilized for this study. Comparison: Head CT 04/11/2016. Findings: The paranasal sinuses and mastoid air cells are clear. The calvarium and skull base are intact. There is no mass, hematoma, midline shift, acute infarct. White matter hypodensity is nonspecific but suggestive of microvascular ischemic change. The ventricles and sulci demonstrate mild age-related involutional changes. Impression: No significant change compared to the prior study. No acute intracranial abnormality. Electronically signed by: Cristobal Ramsay M.D. 07/16/2016 8:11 PM Dictated Date/Time: 07/16/2016 8:07 PM
--- NOTE | 2016-07-16 20:28 | DIAGNOSTIC IMAGING REPORT ---
CHEST 2 VIEWS ROUTINE HISTORY: Repeat imaging for better view of picc line COMPARISON: Chest 07/16/2016. FINDINGS: No pneumothorax. There are low lung volumes. The tip of the right PICC terminates within the right atrium or at the superior cavoatrial junction. This is difficult to confirm due to the low lung volumes. The heart is stable in size. Left axillary surgical clips.. Bibasilar linear densities and left lower lobe interstitial thickening are again noted. IMPRESSION: The tip of the right PICC terminates either within the right atrium or at the superior cavoatrial junction. This is difficult to confirm due to the patient's low lung volumes which partially obscure the right heart border. Electronically signed by: Cristobal Ramsay M.D. 07/16/2016 8:26 PM Dictated Date/Time: 07/16/2016 8:23 PM
--- NOTE | 2016-07-16 21:17 | DIAGNOSTIC IMAGING REPORT ---
CHEST ONE VIEW PORTABLE HISTORY: PICC ADJUSTMENT COMPARISON: Chest 07/16/2016. FINDINGS: The right PICC has been slightly pulled back. This now resides at the distal SVC. There are low lung volumes with bibasilar densities. Left lower lobe interstitial thickening persists. No pneumothorax. Left axilla clips are again noted. IMPRESSION: The tip of the right PICC terminates at the distal SVC. Electronically signed by: Cristobal Ramsay M.D. 07/16/2016 9:15 PM Dictated Date/Time: 07/16/2016 9:13 PM
[2016-07-16 21:59] VITALS: BP 161/76; PULSE 81; TEMP 36.9; O2SAT 96
== END 2016-07-16 22:02 | disposition home or self-care (01) ==
LOC: EDBD 17:50 → C.EDA 17:51
DX: F32.9 Major depressive disorder, single episode, unspecified (principal); M81.0 Age-related osteoporosis without current pathological fracture; G47.30 Sleep apnea, unspecified; Z85.038 Personal history of other malignant neoplasm of large intestine; Z85.3 Personal history of malignant neoplasm of breast; Z79.899 Other long term (current) drug therapy